=== PATIENT | female | born 1950 | race Caucasian/White ===

== ENCOUNTER 2017-12-13 16:14 | Observation (INO) ==
[2017-12-13] MEDS ORDERED: Ondansetron 4 MG/2 ML VIAL IVP PRN (17:01)
[2017-12-13] MEDS ORDERED: *HR* Promethazine 25 MG/ML VIAL IVP PRN (17:01)
[2017-12-13] MEDS ORDERED: *HR* OxyCODONE Immed Rel 5 MG TABLET PO PRN (17:01)
[2017-12-13] MEDS ORDERED: Ketorolac 15 MG/ML VIAL IVP PRN (17:01)
[2017-12-13] MEDS ORDERED: Naloxone 0.4 MG/ML INJ IVP PRN (17:01)
[2017-12-13] MEDS ORDERED: Nitroglycerin 0.4 MG TAB.SUBL SL PRN (17:04)
[2017-12-13] MEDS ORDERED: Dextrose Gel 15 GM/37.5 ML TUBE PO PRN ×2 (17:07)
[2017-12-13] MEDS ORDERED: D5% in Water 1,000 ML IVC PRN (17:07)
[2017-12-13] MEDS ORDERED: *HR* Dextrose 50 % in Water (Syg) 50 ML SYRINGE IVP PRN (17:07)
[2017-12-13] MEDS: Insulin LISPRO 300 UNITS/3 ML VIAL SQ SCH (17:27)
[2017-12-13] MEDS: 0.9 % Sodium Chloride 1,000 ML IVC SCH (17:32)
--- NOTE | 2017-12-13 17:55 | Urology History & Physical ---
Date of Encounter: 12/13/17 Time of Encounter: 17:52 Assessment and Plan (1) Ureteral stone with hydronephrosis Current Visit: Yes Status: Acute I reviewed the patient's CT scan which reveals a 5 mm distal ureteral stone with significant hydronephrosis. Lower pole stone is likely not clinically significant at this time. Patient's pain has been severe and she does not feel she can continue outpatient management and trial of passage. She's been admitted to the urology service for pain control and likely surgical intervention. Stone extraction is the appropriate surgical management. The procedure was discussed and the patient consented without further questions/ concerns. Risks including injury to her urinary tract, perforation, stricture, reaction to contrast, stent discomfort all discussed. This will be planned for December 14. We'll continue to strain urine while she is in the hospital and cancel the procedure if she is able to pass a stone History of Present Illness Chief complaint: right flank pain HPI: Ms. Finnegan is a 67 year old female admitted from the urology office secondary to severe right flank pain. Recent CT scan showed a 5 m distal right ureteral stone. No history of stones. No fever. Positive nausea. Patient states she is felt "miserable" Right obstructive uropathy related to a distal right ureteric stone. Larger stone seen in the right lower pole calyx measuring 1.2 cm. Past Med Surg Social Fam HX - Past Medical History Medical history: COPD, coronary artery disease, diabetes, GERD, hypertension, myocardial infarction Psychiatric history: no psych history - Past Surgical History Surgical History: appendectomy, cholecystectomy, herniorrhaphy - Social History Smoking Status: Current some day smoker Packs per day: 1 pack a week Smokeless Tobacco Status: No Alcohol use: none Drug use: none - Family History Mother Living Status: Cause of : cancer Father Living Status: Cause of : prostate cancer Medications and Allergies Albuterol Neb [Proventil Neb] 2.5 mg IH Q4HR 10/02/16 [History] Albuterol Sulfate [Proair Hfa] 2 puff IH Q4H PRN 10/02/16 [History] Aspirin [Lo-Dose Aspirin EC] 81 mg PO DAILY 10/02/16 [History] Atorvastatin Calcium [Lipitor] 20 mg PO DAILY 10/02/16 [History] Beclomethasone Diprop 40mcg [Qvar 40 mcg] 1 puff IH BID 10/02/16 [History] Budesonide/Formoterol 160/4.5 [Symbicort 160/4.5] 2 puff IH BID 10/02/16 [ History] Cyanocobalamin (Vitamin B-12) [Vitamin B12] 1,000 mcg PO DAILY 10/02/16 [History ] Ferrous Sulfate 325 mg PO BID 10/02/16 [History] Furosemide [Lasix] 40 mg PO DAILY 10/02/16 [History] Insulin DETEMIR [Levemir Flextouch] 7 unit SQ DAILY 10/02/16 [History] Loratadine [Allergy Relief] 10 mg PO DAILY 10/02/16 [History] Metoprolol Succinate 25 mg PO DAILY 10/02/16 [History] Mv W-Ca/Iron/FA/Lutein/Hrb#179 [Sung Multivit For Women Caplet] 1 each PO DAILY 10/02/16 [History] Potassium Chloride [K-Tab ER] 40 meq PO BID 10/02/16 [History] Sennosides [Senna] 8.6 mg PO HS 10/02/16 [History] ALPRAZolam [Xanax 1 MG Tablet] 1 mg PO TID 12/10/17 [History] Ascorbate Calcium [Vitamin C] 500 mg PO DAILY 12/10/17 [History] Cyclobenzaprine HCl 10 mg PO TID PRN 12/10/17 [History] Empagliflozin [Jardiance] 10 mg PO DAILY 12/10/17 [History] FLUoxetine HCl [Fluoxetine HCl] 40 mg PO DAILY 12/10/17 [History] HYDROcodone/Acet 5/325 mg [[place] 5-325 mg] 1 tab PO Q6H PRN #15 tab 12/10/17 [Rx ] Meloxicam [Mobic] 7.5 mg PO DAILY 12/10/17 [History] Nitroglycerin [Nitrostat] 0.4 mg SL AD PRN 12/10/17 [History] Ondansetron ODT [Zofran ODT] 4 mg SL Q6HR #10 tab.rapdis 12/10/17 [Rx] 3 Allergy/AdvReac Type Severity Reaction Status Date / Time No Known Allergies Allergy Verified 10/02/16 18:06 Review of Systems - Constitutional fatigue, no chills, no fever(s) - EENT Nose, mouth and throat: no dizziness - Cardiovascular no chest pain - Respiratory dyspnea, no cough - Gastrointestinal abdominal pain, nausea - Genitourinary Genitourinary: flank pain - Musculoskeletal back pain - Integumentary no erythema - Neurological no confusion - Psychiatric no anxiety - Hematologic/Lymphatic no easy bleeding - Allergic/Immunologic no throat swelling Exam Initial Vital Signs Temp Pulse Resp BP Pulse Ox 97.9 F 92 16 178/82 95 12/13/17 16:58 12/13/17 16:58 12/13/17 16:58 12/13/17 16:58 12/13/17 16:58 - General physical appearance Present: well developed, no distress - Eyes Present: PERRL, conjunctiva is clear - ENT Present: normal nares - Neck Present: no masses, no lymphadenopathy - Respiratory Present: normal respiratory effort - Cardiovascular Cardiovascular exam IM: RRR - Abdomen Abdomen: Present: soft, suprapubic tenderness - Integumentary Present: no rash, no growths - Neurologic Present: normal coordination. Absent: disoriented, confused - Musculoskeletal Present: normal gait - Additional Findings Right CVA tenderness Urology Results - Labs All other labs normal.
[2017-12-13 18:01] LABS: Calcium 8.9 mg/dL (8.6-10.3); Potassium 4.4 mEq/L (3.5-5.1)
[2017-12-13 18:06] LABS: Basophils # 0.1 K/mcL (0.0-0.2); Basophils % 0.6 %; Eosinophils # 0.3 K/mcL (0.0-0.6); Hematocrit 37.7 % (35.3-44.9); Hemoglobin 11.9 g/dL (11.5-15.4); Immature Granulocytes % 0.3 % (0-4); Lymphocytes # 1.7 K/mcL (0.6-4.6); Lymphocytes % 18.6 %; Mean Corpuscular HGB Conc 31.6 g/dL (31.6-35.5); Mean Corpuscular Hemoglobin 26.9 pg (28.0-33.3); Mean Corpuscular Volume 85.3 fL (83.0-100.0); Monocytes # 0.7 K/mcL (0.0-1.3); Neutrophils # 6.3 K/mcL (1.6-8.9); Platelet Count 226 K/mcL (140-400); Red Blood Count 4.42 M/mcL (3.82-4.97); Red Cell Distribution Width 14.2 % (11.5-14.5); Segmented Neutrophils % 69.5 %
[2017-12-13] MEDS: *HR* HYDROcodone/Acet 5/325 mg TABLET PO SCH (20:20)
[2017-12-13] MEDS ORDERED: Sennosides 8.6 MG TABLET PO SCH (21:00)
[2017-12-13] MEDS: ALPRAZolam 1 MG TABLET PO SCH (21:10)
[2017-12-13] MEDS: Beclomethasone 40mcg MDI IH SCH (21:11)
[2017-12-13] MEDS: Budesonide/Formoterol 160/4.5 MDI IH SCH (21:12)
[2017-12-13] MEDS: Albuterol 2.5 MG/3 ML NEBULIZER IH SCH ×2 (21:12→23:05)
[2017-12-14] MEDS: Insulin LISPRO 300 UNITS/3 ML VIAL SQ SCH ×3 (00:11→12:09)
[2017-12-14] MEDS: *HR* HYDROcodone/Acet 5/325 mg TABLET PO SCH ×4 (00:20→12:09)
[2017-12-14] MEDS: 0.9 % Sodium Chloride 1,000 ML IVC SCH (03:32)
[2017-12-14] MEDS: Albuterol 2.5 MG/3 ML NEBULIZER IH SCH ×4 (04:32→15:15)
--- NOTE | 2017-12-14 07:00 | Urology Progress Note ---
Date of Encounter: 12/14/17 Time of Encounter: 06:59 - Assessment and Plan (1) Ureteral stone with hydronephrosis Current Visit: Yes Status: Acute Assessment and plan: plan to proceed with stone extraction today. discussed with patient that Dr Wright may be able to perform the case sooner. she was in agreement. all questions answered. Progress Note Subjective: still having pain Narrative: pt did not pass stone overnight. Objective Initial Vital Signs Temp Pulse Resp BP Pulse Ox 97.9 F 92 16 178/82 95 12/13/17 16:58 12/13/17 16:58 12/13/17 16:58 12/13/17 16:58 12/13/17 16:58 - General physical appearance Present: no distress, moderate pain - Labs 12/13/17 17:20 12/13/17 17:20 Diabetes panel 12/13/17 Range/Units 17:20 Sodium 142 (136-145) mEq/L Potassium 4.4 (3.5-5.1) mEq/L Chloride 108 H (98-107) mEq/L Carbon Dioxide 29 (23-29) mEq/L BUN 20 (8-23) mg/dL Creatinine 1.17 (0.60-1.20) mg/dL Glucose 189 H (70-105) mg/dL Calcium 8.9 (8.6-10.3) mg/dL Calcium panel 12/13/17 Range/Units 17:20 Calcium 8.9 (8.6-10.3) mg/dL Pituitary panel 12/13/17 Range/Units 17:20 Sodium 142 (136-145) mEq/L Potassium 4.4 (3.5-5.1) mEq/L Chloride 108 H (98-107) mEq/L Carbon Dioxide 29 (23-29) mEq/L BUN 20 (8-23) mg/dL Creatinine 1.17 (0.60-1.20) mg/dL Glucose 189 H (70-105) mg/dL Calcium 8.9 (8.6-10.3) mg/dL Adrenal panel 12/13/17 Range/Units 17:20 Sodium 142 (136-145) mEq/L Potassium 4.4 (3.5-5.1) mEq/L Chloride 108 H (98-107) mEq/L Carbon Dioxide 29 (23-29) mEq/L BUN 20 (8-23) mg/dL Creatinine 1.17 (0.60-1.20) mg/dL Glucose 189 H (70-105) mg/dL Calcium 8.9 (8.6-10.3) mg/dL Consult Discharge Plan - Plan Referrals: Radha Chinchilla, ALEJANDRO [Primary Care Provider] -
[2017-12-14] MEDS: Budesonide/Formoterol 160/4.5 MDI IH SCH (07:58)
[2017-12-14] MEDS: Beclomethasone 40mcg MDI IH SCH (07:58)
[2017-12-14] MEDS: ALPRAZolam 1 MG TABLET PO SCH (08:29)
[2017-12-14] MEDS ORDERED: Aspirin Enteric Coated 81 MG Tablet PO SCH (09:00)
[2017-12-14] MEDS ORDERED: Loratadine 10 MG TABLET PO SCH (09:00)
[2017-12-14] MEDS ORDERED: FLUoxetine 20 MG CAPSULE PO SCH (09:00)
[2017-12-14] MEDS ORDERED: cefTRIAXone 1,000 MG in Water for inj. (sterile) 20 ML 10 ML IVP SCH (09:00)
[2017-12-14] MEDS ORDERED: Furosemide 40 MG TABLET PO SCH (09:00)
[2017-12-14] MEDS ORDERED: (Empagliflozin [Jardiance] 10 MG) PO SCH (09:00)
[2017-12-14] MEDS ORDERED: Metoprolol XL (24 HR) Succ 25 MG TAB.ER.24H PO SCH (09:00)
[2017-12-14] MEDS ORDERED: Isovue-300 50 ML VIAL IVP ONE (10:24)
--- NOTE | 2017-12-14 12:40 | Event Note ---
Date of Encounter: 12/14/17 Time of Encounter: 12:39 patient seen. to or today for stone extraction
--- NOTE | 2017-12-14 12:44 | Anesthesia Evaluation PreOp ---
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 HX Other Medical History: Diabetes Type II, GERD Anesthesia History: No Prior Anesthetic Complications, Past Anesthesia (appy, camila, hernia) Alcohol Use: none Drug use: none Medications and Allergies Albuterol Neb [Proventil Neb] 2.5 mg IH Q4HR 10/02/16 [History] Albuterol Sulfate [Proair Hfa] 2 puff IH Q4H PRN 10/02/16 [History] Aspirin [Lo-Dose Aspirin EC] 81 mg PO DAILY 10/02/16 [History] Beclomethasone Diprop 40mcg [Qvar 40 mcg] 1 puff IH BID 10/02/16 [History] Budesonide/Formoterol 160/4.5 [Symbicort 160/4.5] 2 puff IH BID 10/02/16 [ History] Furosemide [Lasix] 40 mg PO DAILY 10/02/16 [History] Insulin DETEMIR [Levemir Flextouch] 7 unit SQ DAILY 10/02/16 [History] Loratadine [Allergy Relief] 10 mg PO DAILY 10/02/16 [History] Metoprolol Succinate 25 mg PO DAILY 10/02/16 [History] Mv W-Ca/Iron/FA/Lutein/Hrb#179 [Sung Multivit For Women Caplet] 1 each PO DAILY 10/02/16 [History] Potassium Chloride [K-Tab ER] 40 meq PO BID 10/02/16 [History] Sennosides [Senna] 8.6 mg PO HS 10/02/16 [History] ALPRAZolam [Xanax 1 MG Tablet] 1 mg PO TID 12/10/17 [History] Ascorbate Calcium [Vitamin C] 500 mg PO DAILY 12/10/17 [History] Empagliflozin [Jardiance] 10 mg PO DAILY 12/10/17 [History] HYDROcodone/Acet 5/325 mg [[place] 5-325 mg] 1 tab PO Q6H PRN #15 tab 12/10/17 [Rx ] Meloxicam [Mobic] 7.5 mg PO DAILY 12/10/17 [History] Nitroglycerin [Nitrostat] 0.4 mg SL AD PRN 12/10/17 [History] Ondansetron ODT [Zofran ODT] 4 mg SL Q6HR #10 tab.rapdis 12/10/17 [Rx] OxyCODONE/APAP 5/325 [Percocet 5/325 MG] 1 - 2 tab PO QID 12/14/17 [History] 3 Allergy/AdvReac Type Severity Reaction Status Date / Time No Known Allergies Allergy Verified 10/02/16 18:06 - Meds/Allergy Pre-op Review Medications Reviewed: Yes Allergies Reviewed: Yes Beta Blockers on Current Med List: Yes If Beta Blockers taken, Date/Time (Last Dose taken): today 812 Anesthesia Results - Labs 12/13/17 17:20 12/13/17 17:20 Anesthesia Exam Selected Entries 12/14/17 10:31 Temperature 97.6 F Pulse Rate 77 Respiratory Rate 15 Blood Pressure 136/82 O2 Sat by Pulse Oximetry 90 Weight: 73kg - HEENT Pupil (Motor): EOMI Mallampati: II Teeth: Missing (lower), Edentulous (upper) Oral Opening: Greater than 3 - 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
[2017-12-14] MEDS ORDERED: Lidocaine -MPF 2% 2 ML VIAL ONE (13:28)
[2017-12-14] MEDS ORDERED: *HR* FentaNYL (PF) 100 MCG/2 ML VIAL ONE (13:28)
[2017-12-14] MEDS ORDERED: Ondansetron 4 MG/2 ML VIAL ONE (13:28)
[2017-12-14] MEDS ORDERED: *HR* Propofol 200 MG/20 ML VIAL IVP ONE (13:28)
[2017-12-14] MEDS ORDERED: Ondansetron 4 MG/2 ML VIAL IVP ONE ×2 (13:49→16:19)
[2017-12-14] MEDS ORDERED: *HR* OxyCODONE/APAP 5/325 TABLET PO PRN ×2 (13:49→16:19)
[2017-12-14] MEDS ORDERED: Dexamethasone 4 MG/ML VIAL ONE (14:02)
--- NOTE | 2017-12-14 14:09 | Operative Note ---
Date of procedure: 12/14/17 Pre-op diagnosis: right distal ureteral stone Post-op diagnosis: other (no stone found) Procedure: Right ureteroscopy, right 4.8 x 26 cm ureteral stent placement Anesthesia: GETA Surgeon: Salty Wright Was there an auction assistant present: No Estimated blood loss (cc): 0 Specimen: none Condition: stable Disposition: PACU Procedure in Detail: Patient was prepped and draped in normal sterile fashion. Timeout procedure performed. I then inserted the cystoscope into the patient's bladder. There is a marked amount of debris within the patient's bladder. This was drained. I then replaced the cystoscope into the patient's bladder. The right ureteral orifice appeared inflamed and red. I placed a sensor wire through this into the right kidney using fluoroscopy. At this point I was then able to place the semirigid ureteroscope into the right distal ureter. The entire right distal ureter for about 10-15 cm was red and inflamed. I then visualized the entire right ureter with no further stones seen. I then placed a 4.8 x 26 cm stent with good curl seen in the right kidney and in the bladder. The bladder was drained and the procedure was ended. A string was left for easy removal in 2-3 days.
[2017-12-14 15:17] VITALS: BP 149/71
[2017-12-14] MEDS ORDERED: Ketorolac 15 MG/ML VIAL IVP PRN (16:19)
[2017-12-14] MEDS ORDERED: Nitroglycerin 0.4 MG TAB.SUBL SL PRN (16:19)
[2017-12-14] MEDS ORDERED: Dextrose Gel 15 GM/37.5 ML TUBE PO PRN ×2 (16:19)
[2017-12-14] MEDS ORDERED: Ondansetron 4 MG/2 ML VIAL IVP PRN (16:19)
[2017-12-14] MEDS ORDERED: D5% in Water 1,000 ML IVC PRN (16:19)
[2017-12-14] MEDS ORDERED: Naloxone 0.4 MG/ML INJ IVP PRN (16:19)
[2017-12-14] MEDS ORDERED: *HR* OxyCODONE Immed Rel 5 MG TABLET PO PRN (16:19)
[2017-12-14] MEDS ORDERED: *HR* Promethazine 25 MG/ML VIAL IVP PRN (16:19)
[2017-12-14] MEDS ORDERED: 0.9 % Sodium Chloride 1,000 ML IVC SCH (16:19)
[2017-12-14] MEDS ORDERED: *HR* Dextrose 50 % in Water (Syg) 50 ML SYRINGE IVP PRN (16:19)
--- NOTE | 2017-12-14 17:13 | Discharge Summary ---
Date of Encounter: 12/14/17 Time of Encounter: 17:10 - Discharge Diagnosis (1) Ureteral stone with hydronephrosis Priority: Primary Status: Resolved - Discharge Medications Prescriptions: OxyCODONE/APAP 5/325 [Percocet 5/325 MG] 1 - 2 tab PO QID PRN 7 Days #20 tablet PRN Reason: Pain Home Medications: Albuterol Neb [Proventil Neb] 2.5 mg IH Q4HR 10/02/16 [History] Albuterol Sulfate [Proair Hfa] 2 puff IH Q4H PRN 10/02/16 [History] Aspirin [Lo-Dose Aspirin EC] 81 mg PO DAILY 10/02/16 [History] Beclomethasone Diprop 40mcg [QVAR 40 mcg] 1 puff IH BID 10/02/16 [History] Budesonide/Formoterol 160/4.5 [Symbicort 160/4.5] 2 puff IH BID 10/02/16 [ History] Furosemide [Lasix] 40 mg PO DAILY 10/02/16 [History] Insulin DETEMIR [Levemir Flextouch] 7 unit SQ DAILY 10/02/16 [History] Loratadine [Allergy Relief] 10 mg PO DAILY 10/02/16 [History] Metoprolol Succinate 25 mg PO DAILY 10/02/16 [History] Mv W-Ca/Iron/FA/Lutein/Hrb#179 [Sung Multivit For Women Caplet] 1 each PO DAILY 10/02/16 [History] Potassium Chloride [K-Tab ER] 40 meq PO BID 10/02/16 [History] Sennosides [Senna] 8.6 mg PO HS 10/02/16 [History] ALPRAZolam [Xanax 1 MG Tablet] 1 mg PO TID 12/10/17 [History] Empagliflozin [Jardiance] 10 mg PO DAILY 12/10/17 [History] Meloxicam [Mobic] 7.5 mg PO DAILY 12/10/17 [History] Nitroglycerin [Nitrostat] 0.4 mg SL AD PRN 12/10/17 [History] FLUoxetine HCl [Prozac] 40 mg PO DAILY capsule 12/14/17 [Rx] OxyCODONE/APAP 5/325 [Percocet 5/325 MG] 1 - 2 tab PO QID PRN 7 Days #20 tablet 12/14/17 [Rx] Allergies/Adverse Reactions: 3 Allergy/AdvReac Type Severity Reaction Status Date / Time No Known Allergies Allergy Verified 10/02/16 18:06 Labs on day of discharge: Labs from last 24 hours 12/14/17 12/14/17 12/13/17 05:46 00:07 17:22 WBC RBC Hgb Hct MCV MCH MCHC RDW Plt Count MPV Immature Gran % Seg Neutrophils % Lymphocytes % Monocytes % Eosinophils % Basophils % Neutrophils # Lymphocytes # Monocytes # Eosinophils # Basophils # Sodium Potassium Chloride Carbon Dioxide BUN Creatinine Est GFR ( Amer) Est GFR (Non-Af Amer) BUN/Creatinine Ratio Glucose POC Glucose 153 H 254 H 187 H Calculated Osmolality Calcium 12/13/17 12/13/17 17:20 17:20 WBC 9.0 RBC 4.42 Hgb 11.9 Hct 37.7 MCV 85.3 MCH 26.9 L MCHC 31.6 RDW 14.2 Plt Count 226 MPV 12.0 Immature Gran % 0.3 Seg Neutrophils % 69.5 Lymphocytes % 18.6 Monocytes % 8.0 Eosinophils % 3.0 Basophils % 0.6 Neutrophils # 6.3 Lymphocytes # 1.7 Monocytes # 0.7 Eosinophils # 0.3 Basophils # 0.1 Sodium 142 Potassium 4.4 Chloride 108 H Carbon Dioxide 29 BUN 20 Creatinine 1.17 Est GFR ( Amer) 56 L Est GFR (Non-Af Amer) 46 L BUN/Creatinine Ratio 17 Glucose 189 H POC Glucose Calculated Osmolality 302 H Calcium 8.9 - Impressions ITS Impressions Fluoroscopy 12/14/17 13:55 IMPRESSION: Intraprocedural fluoroscopic spot images as above. See separate procedure report for more information. D/ / Robert Kramer MD / Robert Kramer MD Interpreting Provider: Robert Kramer MD X-Ray 12/14/17 13:55 IMPRESSION: Intraprocedural fluoroscopic spot images as above. See separate procedure report for more information. D/ / Robert Kramer MD / Robert Kramer MD Interpreting Provider: Robert Kramer MD Date of admission: 12/13/17 16:21 Primary care physician: Radha Chinchilla CNP Discharging clinician: Oracio Mckeon Anticipated date of discharge: 12/14/17 - Patient Status Disposition: Home, Self-Care Condition: Good Functional capacity at discharge: independent ambulation Overall status at discharge: patient is progressing back to baseline - Discharge Instructions Follow Up With: Radha Chinchilla CNP [Primary Care Provider] - Salty Wright MD [Partnered Physician] - (2-4 weeks. see instructions regarding stent) Additional Instructions: expect stent discomfort including urgency, frequency, burning with urination and some flank pain ok to remove stent at home in 3 days by pulling on the string. if unable to remove stent at home, come the office on monday. expect some increase in pain for 12 hurs after stent is removed call if fever over 101 - Diet and Activity Activity: increase activity as tolerated Diet: advance to your usual diet - Hospital Course Hospital course: Ms. Finnegan is a 67 year old female s/p ureteroscopy. doing well. no complications. plan to discharge tonight. - Time Spent with Patient Total time spent providing and/or coordinating discharge services: Less than 30 minutes Exam Initial Vital Signs Temp Pulse Resp BP Pulse Ox 97.9 F 92 16 178/82 95 12/13/17 16:58 12/13/17 16:58 12/13/17 16:58 12/13/17 16:58 12/13/17 16:58 - General physical appearance Present: well developed, no distress
--- NOTE | 2017-12-14 17:21 | Electrocardiograph Report ---
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
[2017-12-14] MEDS ORDERED: Insulin LISPRO 300 UNITS/3 ML VIAL SQ SCH ×2 (18:00→21:00)
[2017-12-14] MEDS ORDERED: *HR* HYDROcodone/Acet 5/325 mg TABLET PO SCH (20:00)
[2017-12-14] MEDS ORDERED: Albuterol 2.5 MG/3 ML NEBULIZER IH SCH (20:00)
[2017-12-14] MEDS ORDERED: ALPRAZolam 1 MG TABLET PO SCH (21:00)
[2017-12-14] MEDS ORDERED: Sennosides 8.6 MG TABLET PO SCH (21:00)
[2017-12-14] MEDS ORDERED: Beclomethasone 40mcg MDI IH SCH (22:00)
[2017-12-14] MEDS ORDERED: Budesonide/Formoterol 160/4.5 MDI IH SCH (22:00)
[2017-12-15] MEDS ORDERED: Insulin LISPRO 300 UNITS/3 ML VIAL SQ SCH (07:30)
[2017-12-15] MEDS ORDERED: (Empagliflozin [Jardiance] 10 MG) PO SCH (09:00)
[2017-12-15] MEDS ORDERED: FLUoxetine 20 MG CAPSULE PO SCH (09:00)
[2017-12-15] MEDS ORDERED: Aspirin Enteric Coated 81 MG Tablet PO SCH (09:00)
[2017-12-15] MEDS ORDERED: Furosemide 40 MG TABLET PO SCH (09:00)
[2017-12-15] MEDS ORDERED: Loratadine 10 MG TABLET PO SCH (09:00)
[2017-12-15] MEDS ORDERED: cefTRIAXone 1,000 MG in Water for inj. (sterile) 20 ML 10 ML IVP SCH (09:00)
[2017-12-15] MEDS ORDERED: Metoprolol XL (24 HR) Succ 25 MG TAB.ER.24H PO SCH (09:00)
== END 2017-12-14 17:40 | disposition home or self-care (01) ==
LOC: 3BNU
PROVIDERS: ADMIT Urology; ATTEND Urology

== ENCOUNTER 2017-12-21 18:46 | Inpatient (IN) ==
[2017-12-21] MEDS ORDERED: Acetaminophen 325 MG TABLET PO ONE (19:23)
--- NOTE | 2017-12-21 19:26 | Emergency Department Note ---
Disposition Clinical Impression: Pneumonia involving left lung, Urinary tract infection, SOB (shortness of breath), COPD exacerbation Disposition: Admitted As Inpatient Condition: Good Referrals: Radha Chinchilla CNP [Primary Care Provider] - Forms: ED Satisfaction Letter Time of Disposition: 20:38 Fever HPI - General Chief Complaint: ED Fever Stated Complaint: fever Time Seen by Provider: 12/21/17 19:22 Source: patient Mode of arrival: ambulatory Nursing Notes Reviewed: Yes Vital Signs Reviewed: Yes - History of Present Illness HPI Narrative: 67-year-old female presents emergency room for fever. Symptom onset was yesterday. Patient admits to a slight cough with little sputum production. She is also complaining of low back pain. She denies dysuria or hematuria. No abdominal pain. Vomiting 3 yesterday. No diarrhea. She states she had lithotripsy done last week on kidney stones. No other complaints at this time. She has known COPD. Does not wear home oxygen. - Related Data Home Medications Medication Instructions Recorded Confirmed Albuterol Neb [Proventil Neb] 2.5 mg IH Q4HR 10/02/16 12/14/17 Albuterol Sulfate [Proair Hfa] 2 puff IH Q4H PRN 10/02/16 12/14/17 Aspirin [Lo-Dose Aspirin EC] 81 mg PO DAILY 10/02/16 12/14/17 Beclomethasone Diprop 40mcg [QVAR 1 puff IH BID 10/02/16 12/14/17 40 mcg] Budesonide/Formoterol 160/4.5 2 puff IH BID 10/02/16 12/14/17 [Symbicort 160/4.5] Furosemide [Lasix] 40 mg PO DAILY 10/02/16 12/14/17 Insulin DETEMIR [Levemir Flextouch] 7 unit SQ DAILY 10/02/16 12/14/17 Loratadine [Allergy Relief] 10 mg PO DAILY 10/02/16 12/14/17 Metoprolol Succinate 25 mg PO DAILY 10/02/16 12/14/17 Mv W-Ca/Iron/FA/Lutein/Hrb#179 1 each PO DAILY 10/02/16 12/14/17 [Sung Multivit For Women Caplet] Potassium Chloride [K-Tab ER] 40 meq PO BID 10/02/16 12/14/17 Sennosides [Senna] 8.6 mg PO HS 10/02/16 12/14/17 ALPRAZolam [Xanax 1 MG Tablet] 1 mg PO TID 12/10/17 12/14/17 Empagliflozin [Jardiance] 10 mg PO DAILY 12/10/17 12/14/17 Meloxicam [Mobic] 7.5 mg PO DAILY 12/10/17 12/14/17 Nitroglycerin [Nitrostat] 0.4 mg SL AD PRN 12/10/17 12/14/17 Previous Rx's Medication Instructions Recorded FLUoxetine HCl [Prozac] 40 mg PO DAILY capsule 12/14/17 OxyCODONE/APAP 5/325 [Percocet 1 - 2 tab PO QID PRN 7 Days #20 12/14/17 5/325 MG] tablet Allergies Allergy/AdvReac Type Severity Reaction Status Date / Time No Known Allergies Allergy Verified 12/21/17 18:51 All systems ED: reviewed and negative except as stated. Constitutional: Reports: fever Eyes: Reports: as per HPI ENT ED: Reports: as per HPI Cardiovascular: Denies: chest pain, palpitations Respiratory: Reports: cough. Denies: dyspnea, wheezes Gastrointestinal: Reports: vomiting. Denies: diarrhea Genitourinary: Reports: as per HPI Musculoskeletal: Reports: back pain Integumentary: Reports: as per HPI Neurological: Reports: as per HPI Psychiatric: Reports: as per HPI Endocrine: Reports: as per HPI Hematological/Lymphatic: Reports: as per HPI Fever PMH - Past Medical History Medical history: Reports: COPD, coronary artery disease, diabetes, GERD, hypertension, myocardial infarction Surgical history: Reports: appendectomy, cholecystectomy, herniorrhaphy Psychiatric history: Reports: no psych history - Social History Smoking Status: Current every day smoker Alcohol use: Reports: none Drug use: Reports: none Physical Exam - General General appearance: alert - Head Head exam: atraumatic, normocephalic - Eye Eye exam: Present: normal appearance - ENT ENT exam: normal exam - Neck Neck exam: Present: normal inspection - Chest Chest inspection: Present: normal inspection, symmetric chest wall rise - Respiratory Respiratory exam: Present: normal lung sounds bilaterally. Absent: respiratory distress, wheezes - Cardiovascular Cardiovascular exam: Present: normal rhythm, tachycardia - Abdominal Exam Abdominal exam: Present: soft, Non-Tender, normal bowel sounds - Extremities Exam Extremities exam: Present: normal inspection - Back Exam Back exam: Present: tenderness (Lumbar tenderness) - Neurological Exam Neurological exam: Present: alert, oriented X3 - Psychiatric Psychiatric exam: Present: normal affect, normal mood - Skin Skin exam: Present: warm, dry, intact Course Vital Signs Temperature 101.5 F H 12/21/17 18:48 Pulse Rate 114 12/21/17 18:48 Respiratory Rate 20 12/21/17 18:48 Blood Pressure 145/76 12/21/17 18:48 O2 Sat by Pulse Oximetry 93 12/21/17 18:48 Temperature 101.5 F H 12/21/17 18:48 Pulse Rate 114 12/21/17 18:48 Respiratory Rate 16 12/21/17 20:30 Blood Pressure 145/76 12/21/17 18:48 O2 Sat by Pulse Oximetry 91 12/21/17 20:30 Oxygen Delivery Oxygen Delivery Room Air Fever - MDM Narrative Medical decision making narrative: Patient has evidence of left sided pneumonia as well as any evidence of urinary tract infection. I have ordered IV Levaquin. Patient saturations are running in the high 80s. I feel she needs to be admitted for this due to her hypoxia. Her flu swabs are negative. We will obtain blood cultures as well. - Medical Records Medical records reviewed: Yes I reviewed the patient's medical records. - Lab Data Lab results reviewed: Yes I reviewed the patient's lab results. Result diagrams: 12/21/17 19:37 12/21/17 19:37 Lab Results 12/21/17 12/21/17 12/21/17 Range/Units 19:15 19:37 19:37 WBC 9.1 (4.3-11.1) K/mcL RBC 4.28 (3.82-4.97) M/mcL Hgb 11.6 (11.5-15.4) g/dL Hct 35.7 (35.3-44.9) % MCV 83.4 (83.0-100.0) fL MCH 27.1 L (28.0-33.3) pg MCHC 32.5 (31.6-35.5) g/dL RDW 14.2 (11.5-14.5) % Plt Count 197 (140-400) K/mcL MPV 11.8 (9.4-12.4) fL Immature Gran % 0.8 (0-4) % Seg Neutrophils % 89.5 % Lymphocytes % 5.0 % Monocytes % 4.3 % Eosinophils % 0.0 % Basophils % 0.4 % Neutrophils # 8.1 (1.6-8.9) K/mcL Lymphocytes # 0.5 L (0.6-4.6) K/mcL Monocytes # 0.4 (0.0-1.3) K/mcL Eosinophils # 0.0 (0.0-0.6) K/mcL Basophils # 0.0 (0.0-0.2) K/mcL Sodium 135 L (136-145) mEq/L Potassium 3.5 (3.5-5.1) mEq/L Chloride 98 (98-107) mEq/L Carbon Dioxide 30 H (23-29) mEq/L BUN 30 H (8-23) mg/dL Creatinine 0.97 (0.60-1.20) mg/dL Est GFR ( Amer) > 60 (> 60) Est GFR (Non-Af Amer) 57 L (> 60) BUN/Creatinine Ratio 31 H (6-26) Glucose 248 H (70-105) mg/dL Calculated Osmolality 294 (280-300) Calcium 8.7 (8.6-10.3) mg/dL Urine Color Yellow (Yellow) Urine Clarity Cloudy A (Clear) Urine pH 6.0 (5.0-8.0) pH Units Ur Specific [place] 1.020 (1.010-1.025) Urine Protein 100 H (Neg-Trace) mg/dL Urine Glucose (UA) Normal (Normal) mg/dL Urine Ketones Negative (Negative) mg/dL Urine Blood Moderate H (Negative) Urine Nitrite Negative (Negative) Urine Bilirubin Negative (Negative) Urine Urobilinogen Normal (Normal) mg/dL Ur Leukocyte Esterase Moderate H (Negative) Urine Microscopic RBC 5-15 H (0-3) per hpf Urine Microscopic WBC TNTC H (0-3) per hpf Ur Squamous Epith Cells Many H (None-Few) per lpf Urine Bacteria Many H (None-Few) per hpf Hyaline Casts None Seen (None-Few) per lpf Ur Culture Indicated? NO. (NO) - Radiology Data Radiology results reviewed: Yes I reviewed the patient's radiology results. - EKG Data EKG attestation: Yes I reviewed and interpreted this EKG. EKG results narrative: Rate 104. Sinus tachycardia. HI interval 204. QRS 81. QTC 376. Some T-wave inversions noted in lead V3 V4 and V5. These are new.
[2017-12-21 19:34] LABS: Bilirubin,Urine Negative (Negative); Blood,Urine Moderate (Negative); Clarity,Urine Cloudy (Clear); Color,Urine Yellow (Yellow); Glucose,Urine (UA) Normal (Normal); Ketones,Urine Negative (Negative); Leukocyte Esterase,Urine Moderate (Negative); Nitrite,Urine Negative (Negative); Protein,Urine 100 mg/dL (Neg-Trace); Urobilinogen,Urine Normal (Normal)
[2017-12-21 19:36] LABS: Bacteria,Urine Many per hpf (None-Few); Hyaline Casts,Urine None Seen per lpf (None-Few); Squamous Epithelial Cell,Urine Many per lpf (None-Few); WBC,Urine TNTC per hpf (0-3)
[2017-12-21 19:45] LABS: Basophils % 0.4 %; Hematocrit 35.7 % (35.3-44.9); Hemoglobin 11.6 g/dL (11.5-15.4); Immature Granulocytes % 0.8 % (0-4); Lymphocytes # 0.5 K/mcL (0.6-4.6); Mean Corpuscular HGB Conc 32.5 g/dL (31.6-35.5); Mean Corpuscular Hemoglobin 27.1 pg (28.0-33.3); Mean Corpuscular Volume 83.4 fL (83.0-100.0); Mean Platelet Volume 11.8 fL (9.4-12.4); Monocytes # 0.4 K/mcL (0.0-1.3); Monocytes % 4.3 %; Neutrophils # 8.1 K/mcL (1.6-8.9); Platelet Count 197 K/mcL (140-400); Red Blood Count 4.28 M/mcL (3.82-4.97); Red Cell Distribution Width 14.2 % (11.5-14.5); Segmented Neutrophils % 89.5 %
[2017-12-21 19:59] LABS: BUN/Creatinine Ratio 31 (6-26); Blood Urea Nitrogen 30 mg/dL (8-23); Calcium 8.7 mg/dL (8.6-10.3); Carbon Dioxide 30 mEq/L (23-29); Chloride 98 mEq/L (98-107); Glucose 248 mg/dL (70-105); Osmolality,Calculated 294 (280-300); Potassium 3.5 mEq/L (3.5-5.1); Sodium 135 mEq/L (136-145); eGFR For African Americans > 60 (> 60); eGFR For Non-African Americans 57 (> 60)
[2017-12-21] MEDS ORDERED: Levofloxacin 750 MG/150 ML 750 MG/150 ML BAG IVPB ONE (20:21)
[2017-12-21] MEDS ORDERED: methylPREDNISolone 125 MG/2 ML VIAL IVP ONE (20:21)
[2017-12-21] MEDS ORDERED: Ipratropium/Albuterol Neb 3 ML IH ONE (20:22)
[2017-12-21] MEDS ORDERED: 0.9 % Sodium Chloride 1,000 ML IVC ONE (20:43)
[2017-12-21] MEDS ORDERED: Naloxone 0.4 MG/ML INJ IVP PRN (21:46)
[2017-12-21] MEDS ORDERED: Ondansetron 4 MG/2 ML VIAL IVP PRN (21:46)
[2017-12-21] MEDS ORDERED: *HR* Promethazine 25 MG/ML VIAL IVP PRN (21:46)
[2017-12-21] MEDS ORDERED: *HR* HYDROcodone/Acet 5/325 mg TABLET PO PRN (21:46)
[2017-12-21] MEDS ORDERED: MOM Conc 10 ML UD.LIQ PO PRN (21:46)
[2017-12-21] MEDS ORDERED: Nitroglycerin 0.4 MG TAB.SUBL SL PRN (21:49)
--- NOTE | 2017-12-21 21:55 | Internal Med History&Physical ---
Date of Encounter: 12/21/17 Time of Encounter: 21:52 Assessment and Plan (1) SIRS (systemic inflammatory response syndrome) Current visit: Yes Status: Acute She does meets SIRS criteria with fever @ 101.5, sinus tachcycardia, and source of inf as UTI + PNA Will admit the pt into Med Surg Start her on IV hydration Empirical abx Levaquin Resp viral panel, Sputum cx, Strep PNA and Legionella ordered (2) Pneumonia involving left lung Current visit: Yes Status: Acute Reviewed CXR showed Left basilar infiltrate started on empirical abx mostly bacterial pneumonia Qualifiers: Qualified Code(s): J18.9 - Pneumonia, unspecified organism (3) COPD exacerbation Current visit: Yes Status: Acute Cont duoneb JJ + PRN will start her on low dose IV steroids (4) Acute cystitis Current visit: Yes Status: Acute UA- looks abnormal continue empiricla abx Levaquin f/u on urine cx Qualifiers: Hematuria presence: without hematuria Qualified Code(s): N30.00 - Acute cystitis without hematuria (5) HTN (hypertension) Current visit: Yes Status: Acute Resumed home meds - Metoprolol Qualifiers: Hypertension type: essential hypertension Qualified Code(s): I10 - Essential (primary) hypertension Internal Medicine - H&P: HPI Chief complaint: Cold and cough Admitted From: Emergency Dept Plans for Post Hospital Care: Home History of present illness: Ms. Finnegan is a 67 year old female with known COPD with no O2 dependent, HTN, HLD, and Nephro lithiasis who recently had lithotripsy presented to emergency room with fever and cough with expectoration since yesterday. She is also complaining of low back pain. She denies dysuria or hematuria. No abdominal pain. Vomiting 3 yesterday. No diarrhea. She states she had lithotripsy done last week on kidney stones. No other complaints at this time. Past Med Surg Social Fam HX - Past Medical History Medical history: COPD, coronary artery disease, diabetes, GERD, hypertension, myocardial infarction Psychiatric history: no psych history - Past Surgical History Surgical History: appendectomy, cholecystectomy, herniorrhaphy - Social History Smoking Status: Current every day smoker Smokeless Tobacco Status: No Alcohol use: none Drug use: none - Family History Mother Living Status: Father Living Status: Internal Medicine - H&P: Meds Albuterol Neb [Proventil Neb] 2.5 mg IH Q4HR 10/02/16 [History] Albuterol Sulfate [Proair Hfa] 2 puff IH Q4H PRN 10/02/16 [History] Aspirin [Lo-Dose Aspirin EC] 81 mg PO DAILY 10/02/16 [History] Beclomethasone Diprop 40mcg [QVAR 40 mcg] 1 puff IH BID 10/02/16 [History] Budesonide/Formoterol 160/4.5 [Symbicort 160/4.5] 2 puff IH BID 10/02/16 [ History] Furosemide [Lasix] 40 mg PO DAILY 10/02/16 [History] Insulin DETEMIR [Levemir Flextouch] 7 unit SQ QPM 10/02/16 [History] Loratadine [Allergy Relief] 10 mg PO DAILY 10/02/16 [History] Metoprolol Succinate 25 mg PO DAILY 10/02/16 [History] Mv W-Ca/Iron/FA/Lutein/Hrb#179 [Sung Multivit For Women Caplet] 1 each PO DAILY 10/02/16 [History] Potassium Chloride [K-Tab ER] 20 meq PO DAILY 10/02/16 [History] Sennosides [Senna] 8.6 mg PO HS 10/02/16 [History] ALPRAZolam [Xanax 1 MG Tablet] 1 mg PO TID 12/10/17 [History] Empagliflozin [Jardiance] 10 mg PO DAILY 12/10/17 [History] Meloxicam [Mobic] 7.5 mg PO DAILY 12/10/17 [History] Nitroglycerin [Nitrostat] 0.4 mg SL Q5M PRN 12/10/17 [History] FLUoxetine HCl [Prozac] 40 mg PO DAILY capsule 12/14/17 [Rx] OxyCODONE/APAP 5/325 [Percocet 5/325 MG] 1 - 2 tab PO QID PRN 7 Days #20 tablet 12/14/17 [Rx] 3 Allergy/AdvReac Type Severity Reaction Status Date / Time No Known Allergies Allergy Verified 12/21/17 18:51 All Systems PM: A 10-system review of systems was performed and is negative for pertinent findings except as documented above in the HPI. Review of systems: All the systems are reviewed everything is benign except the systems and symptoms I mentioned in the history of present illness - Constitutional Vitals: Temp Pulse Resp BP Pulse Ox 99.2 F 108 20 116/70 90 12/21/17 21:19 12/21/17 21:00 12/21/17 21:00 12/21/17 21:00 12/21/17 21:00 General appearance: Present: A&O X 3, answers questions appropriately - Head Head exam: Present: atraumatic, normocephalic - Neck Neck exam general surgery: Present: supple - Respiratory Respiratory exam: Present: decreased breath sounds, wheezes (moderate). Absent : rales, respiratory distress, rhonchi - Cardiovascular Cardiovascular exam: Present: +S1, +S2, tachycardia - GI/Abdominal GI/Abdominal exam: Present: normal bowel sounds, soft. Absent: rebound, rigid, tenderness - Extremities Exam Extremities exam: Absent: calf tenderness, pedal edema, tenderness - Back Exam Back exam: Absent: CVA tenderness (L), CVA tenderness (R) - Neurological Exam Neurological exam: Present: alert, oriented X3 - Psychiatric Psychiatric exam: Present: normal affect, normal mood - Skin Skin exam: Absent: rash Internal Med - H&P Results - Labs CBC & Chem 7: 12/21/17 19:37 12/21/17 19:37
[2017-12-21] MEDS ORDERED: 0.9 % Sodium Chloride 1,000 ML IVC SCH (22:00)
[2017-12-21] MEDS: Acetaminophen 325 MG TABLET PO PRN (22:49)
[2017-12-21] MEDS: MethylPREDNISolone 40 MG/ML VIAL IVP SCH (23:28)
[2017-12-21] MEDS: Nicotine 14 MG PATCH.TD24 TD SCH (23:28)
[2017-12-21] MEDS: Ipratropium/Albuterol Neb 3 ML IH SCH (23:47)
[2017-12-22 00:28] LABS: Adenovirus Not Detected (Not Detect); Bordetella Pertussis Not Detected (Not Detect); Chlamydophila pneumoniae Not Detected (Not Detect); Coronavirus 229E Not Detected (Not Detect); Coronavirus HKU1 Not Detected (Not Detect); Coronavirus NL63 Not Detected (Not Detect); Coronavirus OC43 Not Detected (Not Detect); Human Metapneumovirus Not Detected (Not Detect); Human Rhinovirus/Enterovirus Not Detected (Not Detect); Influenza A Subtype 2009 H1 Not Detected (Not Detect); Influenza A Untypeable Not Detected (Not Detect); Influenza B Not Detected (Not Detect); Mycoplasma pneumoniae Not Detected (Not Detect); Parainfluenza Virus 1 Not Detected (Not Detect); Parainfluenza Virus 2 Not Detected (Not Detect); Parainfluenza Virus 3 Not Detected (Not Detect); Parainfluenza Virus 4 Not Detected (Not Detect); Respiratory Syncytial Virus Not Detected (Not Detect)
[2017-12-22] MEDS: Albuterol 2.5 MG/3 ML NEBULIZER IH SCH ×3 (01:24→07:42)
[2017-12-22] MEDS: Ipratropium/Albuterol Neb 3 ML IH SCH ×5 (03:21→20:58)
[2017-12-22 04:48] LABS: Basophils % 0.3 %; Hematocrit 32.8 % (35.3-44.9); Hemoglobin 10.8 g/dL (11.5-15.4); Immature Granulocytes % 0.6 % (0-4); Lymphocytes # 0.5 K/mcL (0.6-4.6); Lymphocytes % 7.2 %; Mean Corpuscular HGB Conc 32.9 g/dL (31.6-35.5); Mean Corpuscular Hemoglobin 27.6 pg (28.0-33.3); Mean Corpuscular Volume 83.9 fL (83.0-100.0); Mean Platelet Volume 12.3 fL (9.4-12.4); Monocytes # 0.1 K/mcL (0.0-1.3); Monocytes % 1.6 %; Neutrophils # 5.6 K/mcL (1.6-8.9); Platelet Count 184 K/mcL (140-400); Red Blood Count 3.91 M/mcL (3.82-4.97); Red Cell Distribution Width 14.4 % (11.5-14.5); Segmented Neutrophils % 90.3 %
[2017-12-22 05:18] LABS: Chloride 102 mEq/L (98-107); Potassium 3.5 mEq/L (3.5-5.1); Sodium 137 mEq/L (136-145)
[2017-12-22] MEDS: *HR* Enoxaparin 40 MG/0.4 ML SYRINGE SQ SCH (05:24)
[2017-12-22 05:46] LABS: BUN/Creatinine Ratio 34 (6-26); Blood Urea Nitrogen 25 mg/dL (8-23); Carbon Dioxide 24 mEq/L (23-29); Glucose 344 mg/dL (70-105); Osmolality,Calculated 302 (280-300); eGFR For African Americans > 60 (> 60); eGFR For Non-African Americans > 60 (> 60)
[2017-12-22] MEDS: Budesonide/Formoterol 160/4.5 MDI IH SCH ×2 (07:41→20:58)
[2017-12-22] MEDS: FLUoxetine 20 MG CAPSULE PO SCH (08:00)
[2017-12-22] MEDS: Loratadine 10 MG TABLET PO SCH (08:00)
[2017-12-22] MEDS: Aspirin Enteric Coated 81 MG Tablet PO SCH (08:01)
[2017-12-22] MEDS: Nicotine 14 MG PATCH.TD24 TD SCH (08:01)
[2017-12-22] MEDS: Metoprolol XL (24 HR) Succ 25 MG TAB.ER.24H PO SCH (08:01)
[2017-12-22] MEDS ORDERED: Albuterol 2.5 MG/3 ML NEBULIZER IH PRN (08:20)
[2017-12-22] MEDS ORDERED: *HR* Dextrose 50 % in Water (Syg) 50 ML SYRINGE IVP PRN (08:30)
[2017-12-22] MEDS ORDERED: Dextrose Gel 15 GM/37.5 ML TUBE PO PRN ×2 (08:30)
[2017-12-22] MEDS ORDERED: D5% in Water 1,000 ML IVC PRN (08:30)
[2017-12-22] MEDS ORDERED: EMPAGLIFLOZIN 10 MG PO SCH (09:00)
[2017-12-22] MEDS ORDERED: Beclomethasone 40mcg MDI IH SCH (10:00)
--- NOTE | 2017-12-22 10:07 | Electrocardiograph Report ---
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
[2017-12-22] MEDS: MethylPREDNISolone 40 MG/ML VIAL IVP SCH (10:55)
[2017-12-22] MEDS: Insulin LISPRO 300 UNITS/3 ML VIAL SQ SCH ×4 (10:55→22:02)
[2017-12-22] MEDS ORDERED: Insulin LISPRO 300 UNITS/3 ML VIAL SQ SCH ×2 (11:30→21:00)
[2017-12-22] MEDS ORDERED: 0.9 % Sodium Chloride 1,000 ML IVC SCH (12:45)
[2017-12-22] MEDS ORDERED: 0.9 % Sodium Chloride 1,000 ML ONE (12:47)
[2017-12-22] MEDS ORDERED: Insulin LISPRO 300 UNITS/3 ML VIAL SQ ONE (12:48)
--- NOTE | 2017-12-22 13:35 | Internal Med Progress Note ---
Date of Encounter: 12/22/17 Time of Encounter: 13:33 - Assessment and plan (1) Hyperglycemia due to type 2 diabetes mellitus Current Visit: Yes Status: Acute Assessment and plan: Noted to have persistent hyperglycemia, likely secondary to steroid use currently on high dose sliding scale insulin in addition to continuation of basal insulin coverage continue IV fluids awaiting repeat BMP, if BG remains elevated, will start patient on insulin gtt. 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 harvesting supervisor (current) use of insulin; Z79.4 - jail (current) use of insulin (2) Acute cystitis Current Visit: Yes Status: Acute Assessment and plan: continue IV levaquin f/u urine cultures Qualifiers: Hematuria presence: without hematuria Qualified Code(s): N30.00 - Acute cystitis without hematuria (3) COPD exacerbation Current Visit: Yes Status: Acute Assessment and plan: clinically improving currently saturating well on room air will d/c IV steroids, will start PO Prednisone 40mg once a day continue bronchodilator support O2 supplementation as needed (4) HTN (hypertension) Current Visit: Yes Status: Chronic Assessment and plan: BP within acceptable range continue home meds Qualifiers: Hypertension type: essential hypertension Qualified Code(s): I10 - Essential (primary) hypertension (5) Pneumonia involving left lung Current Visit: Yes Status: Acute Assessment and plan: continue IV levaquin will follow up blood cultures Qualifiers: Pneumonia type: due to unspecified organism Lung location: lower lobe of lung Qualified Code(s): J18.1 - Lobar pneumonia, unspecified organism (6) SIRS (systemic inflammatory response syndrome) Current Visit: Yes Status: Resolved - Subjective Interval history: Pt seen and examined at bedside. Resting in bed and reports of significant improvement in her respiratory status. Currently saturating well on room air. Noted to have severe hyperglycemia, pt currently on high dose sliding scale, will obtain STAT BMP and adjust insulin dosing accordingly. started on IV fluids d/c IV steroids and start PO prednisone - Constitutional Vitals: Temp Pulse Resp BP Pulse Ox 97.9 F 87 16 123/63 93 12/22/17 10:34 12/22/17 10:34 12/22/17 11:05 12/22/17 10:34 12/22/17 11:05 General appearance: Present: cooperative, A&O X 3, no acute distress, answers questions appropriately - Head Head exam: Present: atraumatic, normocephalic - Eye Eye exam: Present: conjuntiva pink, sclera anicteric - Respiratory Respiratory exam: Present: CTAB. Absent: respiratory distress, wheezes - Cardiovascular Cardiovascular exam: Present: RRR, +S1, +S2. Absent: diastolic murmur, gallop, rubs, systolic murmur - GI/Abdominal GI/Abdominal exam: Present: normal bowel sounds, soft, no peritoneal signs. Absent: distended, tenderness - Extremities Exam Extremities exam: Present: warm, radial pulses palpable and symmetrical. Absent : calf tenderness, pedal edema - Neurological Exam Neurological exam: Present: alert, oriented X3 - Psychiatric Psychiatric exam: Present: normal affect, normal mood Internal Medicine: Result - Labs CBC & Chem 7: 12/22/17 03:44 12/22/17 03:44 Labs: Short CBC 12/22/17 Range/Units 03:44 WBC 6.2 (4.3-11.1) K/mcL Hgb 10.8 L (11.5-15.4) g/dL Hct 32.8 L (35.3-44.9) % Plt Count 184 (140-400) K/mcL Neutrophils # 5.6 (1.6-8.9) K/mcL BMP 12/22/17 03:44 Sodium 137 Potassium 3.5 Chloride 102 Carbon Dioxide 24 BUN 25 H Creatinine 0.74 Glucose 344 H Calcium 8.0 L Consult Discharge Plan - Plan Referrals: Radha Chinchilla, ALEJANDRO [Primary Care Provider] - 01/03/18 10:45 am (Please follow up as schedule...)
[2017-12-22 13:36] LABS: BUN/Creatinine Ratio 29 (6-26); Blood Urea Nitrogen 26 mg/dL (8-23); Calcium 8.2 mg/dL (8.6-10.3); Carbon Dioxide 26 mEq/L (23-29); Chloride 103 mEq/L (98-107); Glucose 506 mg/dL (70-105); Osmolality,Calculated 311 (280-300); Potassium 3.4 mEq/L (3.5-5.1); Sodium 137 mEq/L (136-145); eGFR For African Americans > 60 (> 60); eGFR For Non-African Americans > 60 (> 60)
[2017-12-22] MEDS ORDERED: Insulin Human Regular 100 UNIT in 0.9 % Sodium Chloride 100 ML IVC SCH (14:00)
[2017-12-22] MEDS: Acetaminophen 325 MG TABLET PO PRN ×2 (14:21→23:40)
[2017-12-22] MEDS: predniSONE 20 MG TABLET PO SCH (17:32)
[2017-12-22] MEDS ORDERED: Insulin DETEMIR 100 UNIT/ML X5UNITS SQ SCH (18:00)
[2017-12-22] MEDS ORDERED: INSULIN DETEMIR 7 UNIT SQ SCH (18:00)
[2017-12-22] MEDS ORDERED: levoFLOXacin 750 MG TABLET PO SCH (21:00)
[2017-12-22] MEDS ORDERED: Sennosides 8.6 MG TABLET PO SCH (21:00)
[2017-12-22] MEDS ORDERED: Levofloxacin 750 MG/150 ML 750 MG/150 ML BAG IVPB SCH (21:00)
[2017-12-23] MEDS: Ipratropium/Albuterol Neb 3 ML IH SCH ×5 (00:25→15:32)
[2017-12-23] MEDS: Insulin LISPRO 300 UNITS/3 ML VIAL SQ SCH ×3 (02:35→13:06)
[2017-12-23] MEDS: ALPRAZolam 1 MG TABLET PO PRN ×2 (05:49→13:06)
[2017-12-23] MEDS: *HR* Enoxaparin 40 MG/0.4 ML SYRINGE SQ SCH (05:49)
[2017-12-23 06:35] LABS: Basophils % 0.2 %; Hematocrit 32.1 % (35.3-44.9); Hemoglobin 10.4 g/dL (11.5-15.4); Immature Granulocytes % 0.8 % (0-4); Lymphocytes # 0.9 K/mcL (0.6-4.6); Lymphocytes % 8.4 %; Mean Corpuscular HGB Conc 32.4 g/dL (31.6-35.5); Mean Corpuscular Hemoglobin 27.2 pg (28.0-33.3); Mean Platelet Volume 12.6 fL (9.4-12.4); Monocytes % 5.2 %; Platelet Count 201 K/mcL (140-400); Red Blood Count 3.82 M/mcL (3.82-4.97); Red Cell Distribution Width 14.3 % (11.5-14.5); Segmented Neutrophils % 85.4 %
[2017-12-23 06:36] LABS: Monocytes # 0.6 K/mcL (0.0-1.3)
[2017-12-23 06:41] LABS: BUN/Creatinine Ratio 41 (6-26); Blood Urea Nitrogen 29 mg/dL (8-23); Calcium 8.4 mg/dL (8.6-10.3); Carbon Dioxide 30 mEq/L (23-29); Chloride 108 mEq/L (98-107); Glucose 146 mg/dL (70-105); Magnesium 2.3 mg/dL (1.6-2.6); Osmolality,Calculated 302 (280-300); Phosphorous 2.5 mg/dL (2.7-4.5); Potassium 3.4 mEq/L (3.5-5.1); Sodium 142 mEq/L (136-145); eGFR For African Americans > 60 (> 60); eGFR For Non-African Americans > 60 (> 60)
[2017-12-23] MEDS: Budesonide/Formoterol 160/4.5 MDI IH SCH (07:55)
[2017-12-23] MEDS: predniSONE 20 MG TABLET PO SCH (08:52)
[2017-12-23] MEDS: Loratadine 10 MG TABLET PO SCH (08:52)
[2017-12-23] MEDS: Metoprolol XL (24 HR) Succ 25 MG TAB.ER.24H PO SCH (08:52)
[2017-12-23] MEDS: FLUoxetine 20 MG CAPSULE PO SCH (08:52)
[2017-12-23] MEDS: Nicotine 14 MG PATCH.TD24 TD SCH (08:52)
[2017-12-23] MEDS: Aspirin Enteric Coated 81 MG Tablet PO SCH (08:52)
[2017-12-23 11:20] VITALS: BP 116/70
--- NOTE | 2017-12-23 14:26 | Discharge Summary ---
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 (2) Acute cystitis Priority: Primary Status: Acute Qualifiers: Hematuria presence: without hematuria Qualified Code(s): N30.00 - Acute cystitis without hematuria (3) COPD exacerbation Priority: Primary Status: Acute (4) HTN (hypertension) Priority: Secondary Status: Chronic Qualifiers: Hypertension type: essential hypertension Qualified Code(s): I10 - Essential (primary) hypertension (5) Pneumonia involving left lung Priority: Primary Status: Acute Qualifiers: Pneumonia type: due to unspecified organism Lung location: lower lobe of lung Qualified Code(s): J18.1 - Lobar pneumonia, unspecified organism (6) SIRS (systemic inflammatory response syndrome) Priority: Secondary Status: Resolved - Discharge Medications Prescriptions: levoFLOXacin [Levaquin] 750 mg PO DAILY@2100 #6 tablet predniSONE [PredniSONE] 40 mg PO DAILY #4 tablet Home Medications: Albuterol Neb [Proventil Neb] 2.5 mg IH Q4HR 10/02/16 [History] Albuterol Sulfate [Proair Hfa] 2 puff IH Q4H PRN 10/02/16 [History] Aspirin [Lo-Dose Aspirin EC] 81 mg PO DAILY 10/02/16 [History] Beclomethasone Diprop 40mcg [QVAR 40 mcg] 1 puff IH BID 10/02/16 [History] Budesonide/Formoterol 160/4.5 [Symbicort 160/4.5] 2 puff IH BID 10/02/16 [ History] Furosemide [Lasix] 40 mg PO DAILY 10/02/16 [History] Insulin DETEMIR [Levemir Flextouch] 7 unit SQ QPM 10/02/16 [History] Loratadine [Allergy Relief] 10 mg PO DAILY 10/02/16 [History] Metoprolol Succinate 25 mg PO DAILY 10/02/16 [History] Mv W-Ca/Iron/FA/Lutein/Hrb#179 [Sung Multivit For Women Caplet] 1 each PO DAILY 10/02/16 [History] Potassium Chloride [K-Tab ER] 20 meq PO DAILY 10/02/16 [History] Sennosides [Senna] 8.6 mg PO HS 10/02/16 [History] ALPRAZolam [Xanax 1 MG Tablet] 1 mg PO TID 12/10/17 [History] Empagliflozin [Jardiance] 10 mg PO DAILY 12/10/17 [History] Meloxicam [Mobic] 7.5 mg PO DAILY 12/10/17 [History] Nitroglycerin [Nitrostat] 0.4 mg SL Q5M PRN 12/10/17 [History] FLUoxetine HCl [Prozac] 40 mg PO DAILY capsule 12/14/17 [Rx] OxyCODONE/APAP 5/325 [Percocet 5/325 MG] 1 - 2 tab PO QID PRN 7 Days #20 tablet 12/14/17 [Rx] levoFLOXacin [Levaquin] 750 mg PO DAILY@2100 #6 tablet 12/23/17 [Rx] predniSONE [PredniSONE] 40 mg PO DAILY #4 tablet 12/23/17 [Rx] Allergies/Adverse Reactions: 3 Allergy/AdvReac Type Severity Reaction Status Date / Time No Known Allergies Allergy Verified 12/21/17 18:51 Date of admission: 12/21/17 23:17 Primary care physician: Radha Chinchilla CNP Consults: 12/22/17 00:26 Consult to Production Leader [CONS] Routine Reason for SW Consult: Pt has a brother who is admitted on 2NE. Pt stated she is his caregiver. She said that he is suppose to be discharged tomorrow but there is no one else to take care of him if he is to leave while she is here. Discharging clinician: Betsey Grubbs Anticipated date of discharge: 12/23/17 - Patient Status Disposition: Home, Self-Care Condition: Good Functional capacity at discharge: independent ambulation Overall status at discharge: patient is back to baseline - Discharge Instructions Follow Up With: Radha Chinchilla CNP [Primary Care Provider] - 01/03/18 10:45 am (Please follow up as schedule...) Additional Instructions: Please follow up with your primary care physician within five days after your discharge from the hospital. Please follow up with pulmonology within one to two weeks after your discharge from the hospital. Continue Prednisone and Levaquin as prescribed. Resume all other medications as prescribed by your primary care physician - Diet and Activity Activity: resume usual activities as tolerated Diet: diabetic diet, low fat, low cholesterol, low salt diet Hospital course: Ms. Finnegan is a 67 year old female with PMH of COPD, HTN, HLD who was admitted for acute respiratory distress secondary to COPD exacerbation and PNA. She was also found to have positive UA concerning for UTI. She was started on IV abx, systemic steroids, bronchodilator support to which she responded appropriately. She is currently back to her baseline respiratory status and stable for discharge. She will be discharged to home today with oral steroids and oral antibiotics. Pt demonstrates understanding of her diagnosis and agrees with the discharge care and plan. - Time Spent with Patient Total time spent providing and/or coordinating discharge services: Less than 30 minutes - Constitutional Vitals: Temp Pulse Resp BP Pulse Ox 97.9 F 71 16 116/70 93 12/23/17 11:14 12/23/17 11:14 12/23/17 11:38 12/23/17 11:14 12/23/17 11:38 General appearance: Present: cooperative, A&O X 3, no acute distress, answers questions appropriately - Head Head exam: Present: atraumatic, normocephalic - Eye Eye exam: Present: conjuntiva pink, sclera anicteric - Respiratory Respiratory exam: Present: CTAB. Absent: respiratory distress, wheezes - Cardiovascular Cardiovascular exam: Present: RRR, +S1, +S2. Absent: diastolic murmur, gallop, rubs, systolic murmur - GI/Abdominal GI/Abdominal exam: Present: normal bowel sounds, soft, no peritoneal signs. Absent: distended, tenderness - Extremities Exam Extremities exam: Present: warm, radial pulses palpable and symmetrical. Absent : calf tenderness, pedal edema - Neurological Exam Neurological exam: Present: alert, oriented X3
== END 2017-12-23 15:52 | disposition home or self-care (01) | DRG 190 ==
LOC: EMEROO 18:46 → 2ANU 18:46
PROVIDERS: ADMIT Internal Medicine; ATTEND Internal Medicine

== ENCOUNTER 2019-05-02 06:11 | Observation (INO) ==
[2019-05-02] MEDS ORDERED: Morphine Sulfate 2 MG/ML SYRINGE IVP ONE (08:55)
[2019-05-02] MEDS ORDERED: *HR* HYDROmorphone (PF) 1 MG/ML SYRINGE IM ONE (10:12)
[2019-05-02] MEDS ORDERED: Ondansetron 4 MG/2 ML VIAL IVP PRN (10:42)
[2019-05-02] MEDS ORDERED: Naloxone 0.4 MG/ML INJ IVP PRN (10:42)
[2019-05-02 10:56] LABS: Basophils # 0.1 K/mcL (0.0-0.2); Basophils % 0.5 %; Eosinophils # 0.2 K/mcL (0.0-0.6); Eosinophils % 1.5 %; Hematocrit 39.6 % (35.3-44.9); Hemoglobin 13.1 g/dL (11.5-15.4); Immature Granulocytes % 0.4 % (0-4); Lymphocytes % 23.6 %; Mean Corpuscular HGB Conc 33.1 g/dL (31.6-35.5); Mean Corpuscular Volume 84.6 fL (83.0-100.0); Mean Platelet Volume 11.7 fL (9.4-12.4); Monocytes # 0.8 K/mcL (0.0-1.3); Monocytes % 5.9 %; Neutrophils # 8.7 K/mcL (1.6-8.9); Platelet Count 254 K/mcL (140-400); Red Blood Count 4.68 M/mcL (3.82-4.97); Red Cell Distribution Width 13.2 % (11.5-14.5); Segmented Neutrophils % 68.1 %; White Blood Count 12.8 K/mcL (4.3-11.1)
[2019-05-02 10:58] LABS: Estimated Average Glucose 229 mg/dl
[2019-05-02 11:12] LABS: BUN/Creatinine Ratio 41 (6-26); Blood Urea Nitrogen 25 mg/dL (8-23); Calcium 9.4 mg/dL (8.6-10.3); Carbon Dioxide 28 mEq/L (23-29); Chloride 104 mEq/L (98-107); Glucose 157 mg/dL (70-105); Osmolality,Calculated 296 (280-300); Potassium 3.8 mEq/L (3.5-5.1); Sodium 139 mEq/L (136-145); eGFR For African Americans > 60 (> 60); eGFR For Non-African Americans > 60 (> 60)
[2019-05-02] MEDS ORDERED: *HR* HYDROmorphone (PF) 1 MG/ML SYRINGE IVP ONE (11:15)
[2019-05-02] MEDS ORDERED: Dextrose Gel 15 GM/37.5 ML TUBE PO PRN ×2 (12:33)
[2019-05-02] MEDS ORDERED: D5% in Water 1,000 ML IVC PRN (12:33)
[2019-05-02] MEDS ORDERED: *HR* Dextrose 50 % in Water (Syg) 50 ML SYRINGE IVP PRN (12:33)
[2019-05-02] MEDS: Insulin LISPRO 300 UNITS/3 ML VIAL SQ SCH (17:59)
[2019-05-02] MEDS ORDERED: Loratadine 10 MG TABLET PO PRN (18:27)
[2019-05-02] MEDS ORDERED: Gabapentin 300 MG CAPSULE PO PRN (18:27)
[2019-05-02] MEDS ORDERED: Albuterol 2.5 MG/3 ML NEBULIZER IH PRN (18:27)
[2019-05-02] MEDS ORDERED: *HR* HYDROcodone/Acet 5/325 mg TABLET PO PRN (18:27)
[2019-05-02] MEDS ORDERED: Ropivacaine/PF 0.5% 30 ML VIAL ONE (19:29)
[2019-05-02] MEDS ORDERED: ALPRAZolam 1 MG TABLET PO SCH (21:00)
[2019-05-02] MEDS ORDERED: POTASSIUM CHLORIDE PO SCH (21:00)
[2019-05-02] MEDS ORDERED: Ascorbic Acid 500 MG TABLET PO SCH (21:00)
[2019-05-02] MEDS ORDERED: Ringers Solution, Lactated 1,000 ML IVC SCH (22:30)
[2019-05-02] MEDS ORDERED: *HR* OxyCODONE Immed Rel 5 MG TABLET PO PRN (22:31)
[2019-05-02] MEDS ORDERED: Ipratropium/Albuterol Neb 3 ML IH PRN (22:32)
[2019-05-02] MEDS ORDERED: Ipratropium/Albuterol Neb 3 ML ONE (22:34)
[2019-05-02] MEDS ORDERED: *HR* Midazolam HCl 2 MG/2 ML VIAL ONE (22:38)
[2019-05-02] MEDS ORDERED: *HR* FentaNYL (PF) 100 MCG/2 ML VIAL ONE (22:38)
[2019-05-02] MEDS ORDERED: Bupivacaine/EPI 1:200k 0.25%PF 30 ML VIAL ONE (22:45)
[2019-05-02] MEDS ORDERED: Propofol 500 MG/50 ML INFUS..BTL ONE (23:24)
[2019-05-02] MEDS ORDERED: ceFAZolin 2,000 MG in Water for inj. (sterile) 20 ML IVP ONE (23:30)
[2019-05-02] MEDS ORDERED: *HR* Rocuronium Bromide 50 MG/5 ML VIAL ONE (23:47)
[2019-05-02] MEDS ORDERED: *HR* Propofol 200 MG/20 ML VIAL IVP ONE (23:47)
[2019-05-02] MEDS ORDERED: Lidocaine -MPF 2% 2 ML VIAL ONE (23:47)
[2019-05-03] MEDS ORDERED: *HR* FentaNYL (PF) 100 MCG/2 ML VIAL ONE (00:29)
[2019-05-03] MEDS ORDERED: ceFAZolin 2,000 MG in Water for inj. (sterile) 20 ML IVP ONE ×2 (00:45→02:47)
[2019-05-03] MEDS: Insulin LISPRO 300 UNITS/3 ML VIAL SQ SCH ×4 (01:36→17:11)
[2019-05-03] MEDS ORDERED: Ipratropium/Albuterol Neb 3 ML IH ONE (02:03)
[2019-05-03] MEDS ORDERED: Ondansetron 4 MG/2 ML VIAL IVP PRN (02:47)
[2019-05-03] MEDS ORDERED: Naloxone 0.4 MG/ML INJ IVP PRN (02:47)
[2019-05-03] MEDS ORDERED: Dextrose Gel 15 GM/37.5 ML TUBE PO PRN ×2 (02:47)
[2019-05-03] MEDS ORDERED: D5% in Water 1,000 ML IVC PRN (02:47)
[2019-05-03] MEDS ORDERED: *HR* HYDROcodone/Acet 5/325 mg TABLET PO PRN (02:47)
[2019-05-03] MEDS ORDERED: Albuterol 2.5 MG/3 ML NEBULIZER IH PRN (02:47)
[2019-05-03] MEDS ORDERED: *HR* Dextrose 50 % in Water (Syg) 50 ML SYRINGE IVP PRN (02:47)
[2019-05-03] MEDS ORDERED: Ipratropium/Albuterol Neb 3 ML IH PRN (02:47)
[2019-05-03 06:52] LABS: Bilirubin,Urine Negative (Negative); Blood,Urine Negative (Negative); Clarity,Urine Clear (Clear); Color,Urine Yellow (Yellow); Glucose,Urine (UA) >=1000 mg/dL (Normal); Ketones,Urine 15 mg/dL (Negative); Leukocyte Esterase,Urine Negative (Negative); Nitrite,Urine Negative (Negative); PH,Urine 5.5 pH Units (5.0-8.0); Protein,Urine 30 mg/dL (Neg-Trace); Urobilinogen,Urine Normal (Normal)
[2019-05-03 06:53] LABS: Bacteria,Urine None Seen per hpf (None-Few); Hyaline Casts,Urine None Seen per lpf (None-Few); RBC,Urine 0-3 per hpf (0-3); Squamous Epithelial Cell,Urine Many per lpf (None-Few); WBC,Urine 0-3 per hpf (0-3)
[2019-05-03 06:57] LABS: Basophils % 0.4 %; Hematocrit 38.2 % (35.3-44.9); Hemoglobin 12.5 g/dL (11.5-15.4); Immature Granulocytes % 0.8 % (0-4); Lymphocytes # 0.9 K/mcL (0.6-4.6); Lymphocytes % 9.1 %; Mean Corpuscular HGB Conc 32.7 g/dL (31.6-35.5); Mean Corpuscular Hemoglobin 28.5 pg (28.0-33.3); Mean Corpuscular Volume 87.2 fL (83.0-100.0); Mean Platelet Volume 11.9 fL (9.4-12.4); Monocytes # 0.1 K/mcL (0.0-1.3); Monocytes % 0.8 %; Neutrophils # 8.4 K/mcL (1.6-8.9); Platelet Count 201 K/mcL (140-400); Red Blood Count 4.38 M/mcL (3.82-4.97); Red Cell Distribution Width 13.2 % (11.5-14.5); Segmented Neutrophils % 88.9 %; White Blood Count 9.5 K/mcL (4.3-11.1)
[2019-05-03 07:08] LABS: Prothrombin Time 11.7 Seconds (9.4-12.1)
[2019-05-03 07:10] LABS: Activated Partial Thrombo Time 30.8 Seconds (26.0-36.0); Alanine Aminotransferase 10 Units/L (7-52); Albumin 3.9 g/dL (3.5-5.7); Albumin/Globulin Ratio 1.3 (1.1-2.2); Alkaline Phosphatase 99 Units/L (34-104); Aspartate Amino Transferase 14 Units/L (13-39); BUN/Creatinine Ratio 40 (6-26); Bilirubin,Total 0.5 mg/dL (0.3-1.0); Blood Urea Nitrogen 30 mg/dL (8-23); Carbon Dioxide 26 mEq/L (23-29); Chloride 101 mEq/L (98-107); Chol/HDL Ratio 6.8 (0-4.9); Cholesterol 197 mg/dL (< 200); Globulin 3.1 g/dL (2.4-3.5); Glucose 330 mg/dL (70-105); HDL Cholesterol 29 mg/dL (40-59); LDL Cholesterol,Calculated 106 mg/dL (0-99); Osmolality,Calculated 311 (280-300); Phosphorous 5.3 mg/dL (2.7-4.5); Potassium 4.4 mEq/L (3.5-5.1); Sodium 141 mEq/L (136-145); Triglycerides 311 mg/dL (< 150); eGFR For African Americans > 60 (> 60); eGFR For Non-African Americans > 60 (> 60)
[2019-05-03] MEDS: Ringers Solution, Lactated 1,000 ML IVC SCH (07:55)
[2019-05-03] MEDS ORDERED: ceFAZolin 2,000 MG in 0.9 % Sodium Chloride 100 ML IVPB SCH (08:00)
[2019-05-03] MEDS: *HR* Heparin 5,000 UNIT/ML VIAL SQ SCH ×2 (08:37→17:13)
[2019-05-03] MEDS: Ascorbic Acid 500 MG TABLET PO SCH ×2 (08:38→20:27)
[2019-05-03] MEDS: Multivit/Ca/Min/Fe/FA 1 TAB TABLET PO SCH (08:38)
[2019-05-03] MEDS: Cyanocobalamin (B-12) 1,000 MCG TABLET PO SCH (08:38)
[2019-05-03] MEDS: ALPRAZolam 1 MG TABLET PO SCH ×3 (08:38→20:27)
[2019-05-03] MEDS: Furosemide 40 MG TABLET PO SCH (08:38)
[2019-05-03] MEDS: Aspirin Enteric Coated 81 MG Tablet PO SCH (08:39)
[2019-05-03] MEDS ORDERED: Cyanocobalamin (B-12) 1,000 MCG TABLET PO SCH (09:00)
[2019-05-03] MEDS ORDERED: Aspirin Enteric Coated 81 MG Tablet PO SCH (09:00)
[2019-05-03] MEDS ORDERED: Multivit/Ca/Min/Fe/FA 1 TAB TABLET PO SCH (09:00)
[2019-05-03] MEDS ORDERED: Fluticasone Propionate Nasal 50 MCG/SPRAY BOTTLE NS SCH (09:00)
[2019-05-03] MEDS ORDERED: Furosemide 40 MG TABLET PO SCH (09:00)
[2019-05-03] MEDS ORDERED: Loratadine 10 MG TABLET PO PRN (09:00)
[2019-05-03] MEDS: ceFAZolin 2,000 MG in 0.9 % Sodium Chloride 100 ML IVPB SCH ×2 (12:31→20:27)
[2019-05-03] MEDS: Fluticasone Propionate Nasal 50 MCG/SPRAY BOTTLE NS SCH (12:32)
[2019-05-04] MEDS: Insulin LISPRO 300 UNITS/3 ML VIAL SQ SCH ×5 (00:30→21:15)
[2019-05-04] MEDS: *HR* Heparin 5,000 UNIT/ML VIAL SQ SCH ×2 (05:37→17:11)
[2019-05-04] MEDS: Aspirin Enteric Coated 81 MG Tablet PO SCH (08:37)
[2019-05-04] MEDS: Furosemide 40 MG TABLET PO SCH (08:37)
[2019-05-04] MEDS: Ascorbic Acid 500 MG TABLET PO SCH ×2 (08:37→21:16)
[2019-05-04] MEDS: Multivit/Ca/Min/Fe/FA 1 TAB TABLET PO SCH (08:37)
[2019-05-04] MEDS: Cyanocobalamin (B-12) 1,000 MCG TABLET PO SCH (08:38)
[2019-05-04] MEDS: ALPRAZolam 1 MG TABLET PO SCH ×3 (08:38→21:16)
[2019-05-04] MEDS: Fluticasone Propionate Nasal 50 MCG/SPRAY BOTTLE NS SCH (08:40)
[2019-05-04] MEDS: Gabapentin 300 MG CAPSULE PO PRN (09:48)
[2019-05-04 14:49] LABS: Basophils # 0.1 K/mcL (0.0-0.2); Basophils % 0.4 %; Eosinophils # 0.1 K/mcL (0.0-0.6); Eosinophils % 0.9 %; Hematocrit 38.6 % (35.3-44.9); Hemoglobin 12.5 g/dL (11.5-15.4); Immature Granulocytes % 0.5 % (0-4); Lymphocytes # 3.2 K/mcL (0.6-4.6); Lymphocytes % 25.1 %; Mean Corpuscular HGB Conc 32.4 g/dL (31.6-35.5); Mean Corpuscular Hemoglobin 28.5 pg (28.0-33.3); Mean Corpuscular Volume 88.1 fL (83.0-100.0); Mean Platelet Volume 12.2 fL (9.4-12.4); Monocytes # 0.8 K/mcL (0.0-1.3); Monocytes % 6.6 %; Neutrophils # 8.5 K/mcL (1.6-8.9); Platelet Count 237 K/mcL (140-400); Red Blood Count 4.38 M/mcL (3.82-4.97); Red Cell Distribution Width 13.2 % (11.5-14.5); Segmented Neutrophils % 66.5 %; White Blood Count 12.8 K/mcL (4.3-11.1)
[2019-05-04 15:03] LABS: Calcium 9.1 mg/dL (8.6-10.3); Potassium 3.7 mEq/L (3.5-5.1)
[2019-05-04] MEDS: Ringers Solution, Lactated 1,000 ML IVC SCH (21:14)
[2019-05-05] MEDS: Ringers Solution, Lactated 1,000 ML IVC SCH (04:49)
[2019-05-05] MEDS: *HR* Heparin 5,000 UNIT/ML VIAL SQ SCH ×2 (06:01→17:13)
[2019-05-05 07:57] LABS: Hematocrit 38.9 % (35.3-44.9); Hemoglobin 12.4 g/dL (11.5-15.4); Mean Corpuscular HGB Conc 31.9 g/dL (31.6-35.5); Mean Corpuscular Hemoglobin 27.7 pg (28.0-33.3); Mean Platelet Volume 12.2 fL (9.4-12.4); Platelet Count 227 K/mcL (140-400); Red Blood Count 4.47 M/mcL (3.82-4.97); Red Cell Distribution Width 13.2 % (11.5-14.5); White Blood Count 10.3 K/mcL (4.3-11.1)
[2019-05-05] MEDS: ALPRAZolam 1 MG TABLET PO SCH ×3 (08:01→20:22)
[2019-05-05] MEDS: Aspirin Enteric Coated 81 MG Tablet PO SCH (08:01)
[2019-05-05] MEDS: Furosemide 40 MG TABLET PO SCH (08:02)
[2019-05-05] MEDS: Cyanocobalamin (B-12) 1,000 MCG TABLET PO SCH (08:02)
[2019-05-05] MEDS: Multivit/Ca/Min/Fe/FA 1 TAB TABLET PO SCH (08:02)
[2019-05-05] MEDS: Ascorbic Acid 500 MG TABLET PO SCH ×2 (08:02→20:22)
[2019-05-05] MEDS: Fluticasone Propionate Nasal 50 MCG/SPRAY BOTTLE NS SCH (08:03)
[2019-05-05] MEDS: Insulin LISPRO 300 UNITS/3 ML VIAL SQ SCH ×4 (08:03→22:00)
[2019-05-05 08:19] LABS: BUN/Creatinine Ratio 47 (6-26); Blood Urea Nitrogen 38 mg/dL (8-23); Carbon Dioxide 32 mEq/L (23-29); Chloride 100 mEq/L (98-107); Glucose 170 mg/dL (70-105); Osmolality,Calculated 305 (280-300); Potassium 3.6 mEq/L (3.5-5.1); Sodium 141 mEq/L (136-145); eGFR For African Americans > 60 (> 60); eGFR For Non-African Americans > 60 (> 60)
[2019-05-06] MEDS: *HR* Heparin 5,000 UNIT/ML VIAL SQ SCH ×2 (05:52→18:06)
[2019-05-06] MEDS: Aspirin Enteric Coated 81 MG Tablet PO SCH (08:48)
[2019-05-06] MEDS: Multivit/Ca/Min/Fe/FA 1 TAB TABLET PO SCH (08:48)
[2019-05-06] MEDS: Cyanocobalamin (B-12) 1,000 MCG TABLET PO SCH (08:48)
[2019-05-06] MEDS: Ascorbic Acid 500 MG TABLET PO SCH ×2 (08:49→20:14)
[2019-05-06] MEDS: Furosemide 40 MG TABLET PO SCH (08:49)
[2019-05-06] MEDS: ALPRAZolam 1 MG TABLET PO SCH ×3 (08:57→20:09)
[2019-05-06] MEDS: Insulin LISPRO 300 UNITS/3 ML VIAL SQ SCH ×3 (08:57→17:58)
[2019-05-06] MEDS: Fluticasone Propionate Nasal 50 MCG/SPRAY BOTTLE NS SCH (12:48)
[2019-05-06] MEDS: Gabapentin 300 MG CAPSULE PO PRN (18:06)
[2019-05-06 19:27] VITALS: BP 158/68
== END 2019-05-06 21:00 ==
LOC: 3NENU
PROVIDERS: ADMIT Internal Medicine; ATTEND Internal Medicine

== ENCOUNTER 2019-07-10 12:15 | Inpatient (IN) ==
[2019-07-10] MEDS ORDERED: Isovue-370 500 ML BOTTLE IVP ONE (12:28)
[2019-07-10] MEDS ORDERED: 0.9 % Sodium Chloride 1,000 ML IVC ONE (12:28)
[2019-07-10] MEDS ORDERED: Piperacillin/Tazobactam 3.375 GM in 0.9 % Sodium Chloride Mini Bag 100 ML IVPB ONE (12:30)
--- NOTE | 2019-07-10 12:36 | Emergency Department Note ---
Disposition Clinical Impression: Left foot infection, Cellulitis of left foot Sepsis Qualifiers: Sepsis type: sepsis due to unspecified organism Sepsis acute organ dysfunction status: unspecified Qualified Code(s): A41.9 - Sepsis, unspecified organism Disposition: Admitted As Inpatient Referrals: Radha Chinchilla CNP [Primary Care Provider] - Forms: ED Satisfaction Letter, Work/School Release Time of Disposition: 14:59 General Adult HPI - General Chief complaint: ED General Medical Stated complaint: "needs admitted" Time Seen by Provider: 07/10/19 12:24 Source: patient Mode of arrival: private vehicle Limitations: no limitations Nursing Notes Reviewed: Yes Vital Signs Reviewed: Yes - History of Present Illness HPI Narrative: Patient is a 69-year-old female with history of diabetes, hypertension, hypercholesterolemia, anemia, COPD who presents today with a left foot infection. Patient states this wound has been present from April and she has been seeing Dr. Nicholson podiatry for wound care and antibiotics. Her last appointment was on 07/04, in which wound culture was taken and was positive for Raoultella [place]. At this time she was also prescribed Augmentin, and is currently still taking this prescription. She is currently having pain in the left plantar aspect of her foot, she rates the pain as 10 out of 10, describes the pain as a stabbing pain, and is somewhat relieved by her prescribed hydrocodone. She denies chest pain, shortness of breath, fevers, chills, nausea, vomiting, diarrhea, constipation. Pain Scale: 10 - Related Data Home Medications Medication Instructions Recorded Confirmed Albuterol Neb [Proventil Neb] 2.5 mg IH Q6HR PRN 10/02/16 05/12/19 Mv W-Ca/Iron/FA/Lutein/Hrb#179 1 tab PO DAILY 10/02/16 05/12/19 [Sung Multivit For Women Caplet] Nitroglycerin [Nitrostat] 0.4 mg SL Q5M PRN 12/10/17 05/12/19 Cyclobenzaprine [Flexeril] 10 mg PO TID PRN 02/05/18 05/12/19 Ascorbic Acid [Vitamin C] 500 mg PO BID 04/03/19 05/12/19 Atorvastatin Calcium [Lipitor] 20 mg PO DAILY 04/03/19 05/12/19 Beclomethasone Dip 40mcg REDIH 2 puff IH DAILY 04/03/19 05/12/19 [Qvar 40 Mcg Redihaler] Ferrous Sulfate 325 mg PO DAILY 04/03/19 05/12/19 Loratadine [Allergy Relief] 10 mg PO DAILY PRN 04/03/19 05/12/19 Potassium Chloride [K-Tab ER] 20 meq PO DAILY 04/03/19 05/12/19 Gabapentin [Neurontin] 300 mg PO QAM 04/09/19 05/12/19 Albuterol Sulfate [Proventil 2 puff IH Q4-6H PRN 05/03/19 05/12/19 Inhaler] Alprazolam [Xanax] 2 mg PO TID PRN 05/03/19 05/12/19 Aspirin [Adult Aspirin Regimen] 81 mg PO DAILY 05/03/19 05/12/19 Cyanocobalamin (Vitamin B-12) 1,000 mcg PO BID 05/03/19 05/12/19 [Vitamin B-12] Fluticasone Propionate Nasal 2 spray NS BID 05/03/19 05/12/19 [Flonase] Gabapentin [Neurontin] 300 mg PO QPM 05/03/19 05/12/19 Zolpidem [Ambien] 10 mg PO HS PRN 05/03/19 05/12/19 HYDROcodone/Acet 7.5/325 mg [[place] 1 tab PO Q4HR PRN 07/10/19 07/10/19 7.5-325 mg] Previous Rx's Medication Instructions Recorded Cholecalciferol (D-3) [Vitamin D] 1,000 unit PO DAILY #30 tablet 05/25/19 Omeprazole [PriLOSEC] 20 mg PO DAILY capsule. 05/25/19 Ondansetron ODT [Zofran ODT] 4 mg SL Q4HR PRN #12 tab.rapdis 05/25/19 Allergies Allergy/AdvReac Type Severity Reaction Status Date / Time No Known Allergies Allergy Verified 05/03/19 18:37 All systems ED: reviewed and negative except as stated. Review of Systems: As Per HPI Constitutional: Denies: fever, chills Cardiovascular: Denies: chest pain, palpitations Respiratory: Denies: dyspnea Gastrointestinal: Denies: abdominal pain, vomiting Genitourinary: Denies: dysuria Musculoskeletal: Reports: other (lfet foot pain and infection) Past Medical History - Past Medical History Attestation: Yes The following information was validated with the patient. Source: patient Medical history: Reports: non-contributory Surgical history: Reports: appendectomy, cholecystectomy, coronary bypass (CABG), herniorrhaphy, hysterectomy Psychiatric history: Reports: depression - Social History Smoking Status: Current every day smoker Smokeless Tobacco Status: No Alcohol use: Reports: none Drug use: Reports: none Physical Exam - General Limitations: no limitations General appearance: alert, in no apparent distress - Head Head exam: atraumatic, normocephalic - Eye Eye exam: Present: normal appearance, EOMI - ENT ENT exam: normal exam, normal oropharynx - Neck Neck exam: Present: normal inspection, trachea midline - Chest Chest inspection: Present: normal inspection, symmetric chest wall rise - Respiratory Respiratory exam: Present: normal lung sounds bilaterally. Absent: respiratory distress, wheezes - Cardiovascular Cardiovascular exam: Present: normal rhythm, tachycardia - Abdominal Exam Abdominal exam: Present: soft, Non-Tender. Absent: distention - Extremities Exam Extremities exam: Present: normal capillary refill, other (Left foot on the mid dorsal portion with the large wound into the subcutaneous tissue.Drainage with surrounding cellulitic changes. Appears worsened from the wounds picture taken on July 04. Foul-smelling.) - Neurological Exam Neurological exam: Present: alert, oriented X3 - Psychiatric Psychiatric exam: Present: normal affect, normal mood - Skin Skin exam: Present: warm Course Vital Signs Temperature 97.8 F 07/10/19 12:16 Pulse Rate 105 07/10/19 12:16 Respiratory Rate 20 07/10/19 12:16 Blood Pressure 141/87 07/10/19 12:16 O2 Sat by Pulse Oximetry 93 07/10/19 12:16 Temperature 97.8 F 07/10/19 12:16 Pulse Rate 90 07/10/19 14:43 Respiratory Rate 18 07/10/19 14:43 Blood Pressure 164/82 07/10/19 14:43 O2 Sat by Pulse Oximetry 94 07/10/19 14:43 Oxygen Delivery Oxygen Delivery Room Air Medical Decision Making - [facility] Narrative Medical decision making narrative: Patient is presenting with a large left foot infection with surrounding celluli tis and with purulent drainage, foul-smelling. Patient is slightly tachycardic and tachypneic. We will obtain septic workup, CBC, BMP, lactate, blood cultures, ESR and CRP, we will obtain CT left lower extremity to evaluate for osteomyelitis. Vancomycin and Zosyn ordered. Patient was sent in for right vascular surgery to be admitted as she has scheduled surgery tomorrow. Once labs and imaging return, will call up Podiatry, Dr. Nicholson, as he sent the patient in and if we cannot get a hold of him, will call Dr. Gibbs, adjunct communications faculty member medical billing associate. Will give 1L IVFs and fentanyl for pain. BP normotensive. patient states she is to receive surgery in the morning. 14:35 Labs and imaging reviewed. Elevated ESR and CRP, mild leukocytosis. Lactate normal. CT shows new multiple foci of air about the joint and hardware with overlying soft tissue irregularity concerning for infection with no well-defined fluid collection. Podiatry paged. Dr. Nicholson still in surgery. 14:[address] Gibbs, Podiatry. Consult placed. Hospitalist paged for admission. 14:[address] Valenzuela, hospitalist, who accepts admission - Medical Records Medical records reviewed: Yes I reviewed the patient's medical records. - Lab Data Lab results reviewed: Yes I reviewed the patient's lab results. Result diagrams: 07/10/19 12:52 07/10/19 12:52 Lab Results 07/10/19 07/10/19 07/10/19 Range/Units 12:52 12:52 12:52 WBC 11.7 H (4.3-11.1) K/mcL RBC 4.55 (3.82-4.97) M/mcL Hgb 12.7 (11.5-15.4) g/dL Hct 39.0 (35.3-44.9) % MCV 85.7 (83.0-100.0) fL MCH 27.9 L (28.0-33.3) pg MCHC 32.6 (31.6-35.5) g/dL RDW 13.2 (11.5-14.5) % Plt Count 311 (140-400) K/mcL MPV 11.3 (9.4-12.4) fL Immature Gran % 0.4 (0-4) % Seg Neutrophils % 77.5 % Lymphocytes % 16.4 % Monocytes % 4.5 % Eosinophils % 0.8 % Basophils % 0.4 % Neutrophils # 9.0 H (1.6-8.9) K/mcL Lymphocytes # 1.9 (0.6-4.6) K/mcL Monocytes # 0.5 (0.0-1.3) K/mcL Eosinophils # 0.1 (0.0-0.6) K/mcL Basophils # 0.1 (0.0-0.2) K/mcL ESR 75 H (0-15) mm/hr Sodium 141 (136-145) mEq/L Potassium 3.5 (3.5-5.1) mEq/L Chloride 104 (98-107) mEq/L Carbon Dioxide 29 (23-29) mEq/L BUN 13 (8-23) mg/dL Creatinine 0.60 (0.60-1.20) mg/dL Est GFR ( Amer) > 60 (> 60) Est GFR (Non-Af Amer) > 60 (> 60) BUN/Creatinine Ratio 22 (6-26) Glucose 292 H (70-105) mg/dL Calculated Osmolality 303 H (280-300) Lactic Acid (0.5-2.2) mmol/L Calcium 9.3 (8.6-10.3) mg/dL C-Reactive Protein 37 H (Less than 10) mg/L 07/10/19 Range/Units 12:52 WBC (4.3-11.1) K/mcL RBC (3.82-4.97) M/mcL Hgb (11.5-15.4) g/dL Hct (35.3-44.9) % MCV (83.0-100.0) fL MCH (28.0-33.3) pg MCHC (31.6-35.5) g/dL RDW (11.5-14.5) % Plt Count (140-400) K/mcL MPV (9.4-12.4) fL Immature Gran % (0-4) % Seg Neutrophils % % Lymphocytes % % Monocytes % % Eosinophils % % Basophils % % Neutrophils # (1.6-8.9) K/mcL Lymphocytes # (0.6-4.6) K/mcL Monocytes # (0.0-1.3) K/mcL Eosinophils # (0.0-0.6) K/mcL Basophils # (0.0-0.2) K/mcL ESR (0-15) mm/hr Sodium (136-145) mEq/L Potassium (3.5-5.1) mEq/L Chloride (98-107) mEq/L Carbon Dioxide (23-29) mEq/L BUN (8-23) mg/dL Creatinine (0.60-1.20) mg/dL Est GFR ( Amer) (> 60) Est GFR (Non-Af Amer) (> 60) BUN/Creatinine Ratio (6-26) Glucose (70-105) mg/dL Calculated Osmolality (280-300) Lactic Acid 2.1 (0.5-2.2) mmol/L Calcium (8.6-10.3) mg/dL C-Reactive Protein (Less than 10) mg/L - Radiology Data Radiology results reviewed: Yes I reviewed the patient's radiology results. Foot CT 07/10/19 12:28 IMPRESSION: Postsurgical changes from prior 1st TMT joint arthrodesis without significant osseous fusion. New from the prior study are multiple foci of air about the joint and hardware with overlying soft tissue irregularity concerning for infection. No well-defined fluid collection is seen. D/ / David Sandoval / David Sandoval Interpreting Provider: David Sandoval
[2019-07-10] MEDS ORDERED: *HR* FentaNYL (PF) 100 MCG/2 ML VIAL IVP ONE (13:05)
[2019-07-10 13:27] LABS: BUN/Creatinine Ratio 22 (6-26); Blood Urea Nitrogen 13 mg/dL (8-23); C-Reactive Protein 37 mg/L (Less than 10); Calcium 9.3 mg/dL (8.6-10.3); Carbon Dioxide 29 mEq/L (23-29); Chloride 104 mEq/L (98-107); Glucose 292 mg/dL (70-105); Osmolality,Calculated 303 (280-300); Potassium 3.5 mEq/L (3.5-5.1); Sodium 141 mEq/L (136-145); eGFR For African Americans > 60 (> 60); eGFR For Non-African Americans > 60 (> 60)
[2019-07-10 13:33] LABS: Basophils # 0.1 K/mcL (0.0-0.2); Basophils % 0.4 %; Eosinophils # 0.1 K/mcL (0.0-0.6); Eosinophils % 0.8 %; Hemoglobin 12.7 g/dL (11.5-15.4); Immature Granulocytes % 0.4 % (0-4); Lymphocytes # 1.9 K/mcL (0.6-4.6); Lymphocytes % 16.4 %; Mean Corpuscular HGB Conc 32.6 g/dL (31.6-35.5); Mean Corpuscular Hemoglobin 27.9 pg (28.0-33.3); Mean Corpuscular Volume 85.7 fL (83.0-100.0); Mean Platelet Volume 11.3 fL (9.4-12.4); Monocytes # 0.5 K/mcL (0.0-1.3); Monocytes % 4.5 %; Platelet Count 311 K/mcL (140-400); Red Blood Count 4.55 M/mcL (3.82-4.97); Red Cell Distribution Width 13.2 % (11.5-14.5); Segmented Neutrophils % 77.5 %; White Blood Count 11.7 K/mcL (4.3-11.1)
--- NOTE | 2019-07-10 15:36 | Podiatry Consult Note ---
Date of Encounter: 07/10/19 Time of Encounter: 15:33 Assessment and Plan (1) Cellulitis of left foot Current visit: Yes Status: Acute Assessment: Erythema and edema of left foot Ulceration noted to left calcaneous, left lateral foot, and left dorsal foot Malodorous WBC 11.7, afebrile ESR 75, CRP 37 07/04/19 Wound cultures returned raoultella planticola Blood cultures pending 07/03/19 tcp02 R ankle 37, R foot 29, L ankle 28, L foot 24 07/03/19 ABIs bilaterally within normal limits CT negative for OM or abscess Plan: NPO after MN Surgery tomorrow for debridement Dressing changed, see below Continue IV atb per medicine recommendations Cleansed with 0.9 NS Covered all ulcerations with adaptic, 4x4 dry gauze, kerlix, and medipore tape Imaging: CT/CT foot LT w con IMPRESSION: Postsurgical changes from prior 1st TMT joint arthrodesis without significant osseous fusion. New from the prior study are multiple foci of air about the joint and hardware with overlying soft tissue irregularity concerning for infection. No well-defined fluid collection is seen. D/ / David Sandoval / David Sandoval Interpreting Provider: David Sandoval (2) Non-healing surgical wound Current visit: Yes Status: Acute See above Qualifiers: Encounter type: initial encounter Qualified Code(s): T81.89XA - Other complications of procedures, not elsewhere classified, initial encounter History of Present Illness Chief complaint: Left foot wound HPI: Ms. Finnegan is a 69 year old female who presented to the ER today with complaints of 10/10 left foot pain. Patient is known to the podiatry group, follows with Dr. Nicholson in the outpatient setting. PMH of COPD, CAD, DM II, GERD, HLD, HTN, MS, CABG, kidney stones, anemia, MRSA, and sleep apnea. Briefly Ms. Quigley is a 69-year-old female presents today with complaints of 10/10 left foot pain. Patient was scheduled for outpatient debridement for tomorrow, 07/11/19. Patient reports she has been following with Dr. Nicholson in the wound care center ever since she fell and broke her ankle/foot. Surgery was on 05/03/19. Reports nonhealing wound due to diabetes. Denies any fevers, chills, nausea, vomiting, or diarrhea. Denies any calf pain, chest pain, or shortness of breath. Discussed surgical intervention tomorrow. Patient agreeable. Discussed NPO after midnight. Patient verbalized understanding. No other questions or concerns at this time. Past Med Surg Social Fam HX - Past Medical History Medical history: non-contributory Additional medical history: ANEMIA, MRSA, WEARS HOME 02 AT 2LITERS NEEDED, SLEEP APNEA Psychiatric history: depression - Past Surgical History Surgical History: appendectomy, cholecystectomy, coronary bypass (CABG), herniorrhaphy, hysterectomy Additional surgical history: I&D TO STERNAL WOUND INFECTION - Social History Smoking Status: Current every day smoker Smokeless Tobacco Status: No Alcohol use: none Drug use: none - Family History Mother Living Status: Hx Family Cancer: Yes Hx Family Endocrine Disorder: Yes Father Living Status: Hx Family Cancer: Yes Hx Family Endocrine Disorder: Yes Medications and Allergies Albuterol Neb [Proventil Neb] 2.5 mg IH Q6HR PRN 10/02/16 [History] Mv W-Ca/Iron/FA/Lutein/Hrb#179 [Sung Multivit For Women Caplet] 1 tab PO DAILY 10/02/16 [History] Nitroglycerin [Nitrostat] 0.4 mg SL Q5M PRN 12/10/17 [History] Cyclobenzaprine [Flexeril] 10 mg PO TID PRN 02/05/18 [History] Ascorbic Acid [Vitamin C] 500 mg PO BID 04/03/19 [History] Atorvastatin Calcium [Lipitor] 20 mg PO DAILY 04/03/19 [History] Beclomethasone Dip 40mcg REDIH [Qvar 40 Mcg Redihaler] 2 puff IH DAILY 04/03/19 [History] Ferrous Sulfate 325 mg PO DAILY 04/03/19 [History] Loratadine [Allergy Relief] 10 mg PO DAILY PRN 04/03/19 [History] Potassium Chloride [K-Tab ER] 20 meq PO DAILY 04/03/19 [History] Gabapentin [Neurontin] 300 mg PO QAM 04/09/19 [History] Albuterol Sulfate [Proventil Inhaler] 2 puff IH Q4-6H PRN 05/03/19 [History] Alprazolam [Xanax] 2 mg PO TID PRN 05/03/19 [History] Aspirin [Adult Aspirin Regimen] 81 mg PO DAILY 05/03/19 [History] Cyanocobalamin (Vitamin B-12) [Vitamin B-12] 1,000 mcg PO BID 05/03/19 [History] Fluticasone Propionate Nasal [Flonase] 2 spray NS BID 05/03/19 [History] Gabapentin [Neurontin] 300 mg PO QPM 05/03/19 [History] Zolpidem [Ambien] 10 mg PO HS PRN 05/03/19 [History] Cholecalciferol (D-3) [Vitamin D] 1,000 unit PO DAILY #30 tablet 05/25/19 [Rx] Omeprazole [PriLOSEC] 20 mg PO DAILY capsule. 05/25/19 [Rx] Ondansetron ODT [Zofran ODT] 4 mg SL Q4HR PRN #12 tab.rapdis 05/25/19 [Rx] HYDROcodone/Acet 7.5/325 mg [[place] 7.5-325 mg] 1 tab PO Q4HR PRN 07/10/19 [History] Allergy/AdvReac Type Severity Reaction Status Date / Time No Known Allergies Allergy Verified 05/03/19 18:37 All Systems Reviewed: The remainder of the systems were reviewed and are negative - Constitutional Constitutional: no fever(s) - Cardiovascular Cardiovascular: pedal edema, other (pedal ulcer), no chest pain - Respiratory Respiratory: no dyspnea - Musculoskeletal Musculoskeletal: as per HPI Physical Exam - Constitutional Vitals: Temp Pulse Resp BP Pulse Ox 97.8 F 90 18 164/82 94 07/10/19 12:16 07/10/19 14:43 07/10/19 14:43 07/10/19 14:43 07/10/19 14:43 Exam: Constitiutional: Alert and oriented x 3. Well nourished. No acute distress noted Vascular: faint DP/PT LLE, CFT <3 sec to all digits LLE, warm to warm from tibia to toes LLE, no calf pain with squeeze LLE Neurologic: Sensation to touch, normal plantar response Dermatologic: Ulcerations noted to left calcaneous, left dorsal foot, left la teral foot, slough noted to all wound beds. malodorous, erythema noted to periwound, minimal edema noted Musculoskeletal: 3/5 muscle strength and normal tone bilaterally. Results - Labs Result Diagrams: 07/10/19 12:52 07/10/19 12:52 Labs: Abnormal lab results WBC 11.7 K/mcL (4.3-11.1) H 07/10/19 12:52 MCH 27.9 pg (28.0-33.3) L 07/10/19 12:52 Neutrophils # 9.0 K/mcL (1.6-8.9) H 07/10/19 12:52 ESR 75 mm/hr (0-15) H 07/10/19 12:52 Glucose 292 mg/dL (70-105) H 07/10/19 12:52 Calculated Osmolality 303 (280-300) H 07/10/19 12:52 C-Reactive Protein 37 mg/L (Less than 10) H 07/10/19 12:52 H & H 07/10/19 Range/Units 12:52 Hgb 12.7 (11.5-15.4) g/dL Hct 39.0 (35.3-44.9) % All other labs normal. Consult Discharge Plan - Plan Referrals: Radha Chinchilla, ALEJANDRO [Primary Care Provider] -
[2019-07-10] MEDS ORDERED: Naloxone 0.4 MG/ML INJ IVP PRN (15:38)
[2019-07-10] MEDS ORDERED: Acetaminophen 325 MG TABLET PO PRN (15:38)
[2019-07-10] MEDS ORDERED: *HR* HYDROcodone/Acet 5/325 mg TABLET PO PRN (15:38)
[2019-07-10] MEDS ORDERED: Ondansetron 4 MG/2 ML VIAL IVP PRN (15:38)
--- NOTE | 2019-07-10 15:59 | Internal Med History&Physical ---
Date of Encounter: 07/10/19 Time of Encounter: 15:20 Internal Medicine - H&P: HPI Chief complaint: Celulitis Admitted From: Emergency Dept Plans for Post Hospital Care: Home History of present illness: Ms. Finnegan is a 69 year old female with a past medical history significant for hypertension, diabetes mellitus, left fibular fracture and left 1-4 metatarsal fractures status post ORIF surgery on 05/03/2018 with plate and screws repairs, was sent to the emergency department from the podiatry office because of the concerns of left foot infection. Patient underwent rehabilitation after surgery and following up with the podiatry for the wound care. Her last visit was on 07/04, wound culture from that visit showed roultella planticola, sensitive to Augmentin. Patient was taking Augmentin at home but her wound and symptoms are gradually worsening. She came to the emergency department today. Podiatry advised to admit the patient and possibly a debridement tomorrow. Patient is complaining of pain in the left plantar aspect of her foot which she rated as 10/10, stabbing, nonradiating, aggravated with motion, no relieving factors. Denies fever, chills, rigors. Denies chest pain, shortness of breath. Denies nausea, vomiting, diarrhea. Denies dysuria, hematuria, increased urinary frequency. She was otherwise hemodynamically stable in the emergency department. The CT scan of the foot showed postsurgical changes from prior first TMT joint arthrodesis without significant osseous fusion. New from the prior study are multiple foci of air about the joint and hardware with overlying soft tissue irregularity concerning for infection. No well-defined fluid collection is seen. Patient was given IV vancomycin and IV Zosyn in the emergency department and admitted for further management. Past Med Surg Social Fam HX - Past Medical History Medical history: non-contributory Additional medical history: ANEMIA, MRSA, WEARS HOME 02 AT 2LITERS NEEDED, SLEEP APNEA Psychiatric history: depression - Past Surgical History Surgical History: appendectomy, cholecystectomy, coronary bypass (CABG), herniorrhaphy, hysterectomy Additional surgical history: I&D TO STERNAL WOUND INFECTION - Social History Smoking Status: Current every day smoker Smokeless Tobacco Status: No Alcohol use: none Drug use: none - Family History Mother Living Status: Hx Family Cancer: Yes Hx Family Endocrine Disorder: Yes Father Living Status: Hx Family Cancer: Yes Hx Family Endocrine Disorder: Yes Internal Medicine - H&P: Meds Albuterol Neb [Proventil Neb] 2.5 mg IH Q6HR PRN 10/02/16 [History] Mv W-Ca/Iron/FA/Lutein/Hrb#179 [Sung Multivit For Women Caplet] 1 tab PO DAILY 10/02/16 [History] Nitroglycerin [Nitrostat] 0.4 mg SL Q5M PRN 12/10/17 [History] Cyclobenzaprine [Flexeril] 10 mg PO TID PRN 02/05/18 [History] Ascorbic Acid [Vitamin C] 500 mg PO BID 04/03/19 [History] Atorvastatin Calcium [Lipitor] 20 mg PO DAILY 04/03/19 [History] Beclomethasone Dip 40mcg REDIH [Qvar 40 Mcg Redihaler] 2 puff IH DAILY 04/03/19 [History] Ferrous Sulfate 325 mg PO DAILY 04/03/19 [History] Loratadine [Allergy Relief] 10 mg PO DAILY PRN 04/03/19 [History] Potassium Chloride [K-Tab ER] 20 meq PO DAILY 04/03/19 [History] Gabapentin [Neurontin] 300 mg PO QAM 04/09/19 [History] Albuterol Sulfate [Proventil Inhaler] 2 puff IH Q4-6H PRN 05/03/19 [History] Alprazolam [Xanax] 2 mg PO TID PRN 05/03/19 [History] Aspirin [Adult Aspirin Regimen] 81 mg PO DAILY 05/03/19 [History] Cyanocobalamin (Vitamin B-12) [Vitamin B-12] 1,000 mcg PO BID 05/03/19 [History] Fluticasone Propionate Nasal [Flonase] 2 spray NS BID 05/03/19 [History] Gabapentin [Neurontin] 300 mg PO QPM 05/03/19 [History] Zolpidem [Ambien] 10 mg PO HS PRN 05/03/19 [History] Cholecalciferol (D-3) [Vitamin D] 1,000 unit PO DAILY #30 tablet 05/25/19 [Rx] Omeprazole [PriLOSEC] 20 mg PO DAILY capsule. 05/25/19 [Rx] Ondansetron ODT [Zofran ODT] 4 mg SL Q4HR PRN #12 tab.rapdis 05/25/19 [Rx] HYDROcodone/Acet 7.5/325 mg [[place] 7.5-325 mg] 1 tab PO Q4HR PRN 07/10/19 [History] 3 Allergy/AdvReac Type Severity Reaction Status Date / Time No Known Allergies Allergy Verified 05/03/19 18:37 All Systems PM: A 10-system review of systems was performed and is negative for pertinent findings except as documented above in the HPI. Review of systems: General: Negative for fever, chills, rigors. HEENT: Negative for neck swelling, discharge from nose, discharge from ears. EYES: Negative for any discharge from the eyes. Respiratory: Negative for shortness of breath, orthopnea, exertional dyspnea. Cardiovascular: Negative for chest pain, shortness of breath, orthopnea, PND. Gastrintestical: Negative for diarrhea, constipation, blood in stools. Genitourinary: Negative for dysuria, hematuria, nocturia, increased frequency of urine. Hematological: Negative for blood loss, negative for active cancer. Neurological: Negative for headache, dizziness, blurry vision, loss os power and sensations. Endocrinology: Negative for constipation, polyuria, polydipsia. Integumentary: See HPI Psychiatric: Negative for anxiety or depression. - Constitutional Vitals: Temp Pulse Resp BP Pulse Ox 97.8 F 90 18 164/82 94 07/10/19 12:16 07/10/19 14:43 07/10/19 14:43 07/10/19 14:43 07/10/19 14:43 Exam: General: Alert and oriented, no physical distress, able to follow commands. HEENT: No thyromegaly, no lymphadenopathy, no discharge. Eyes: No discharge. Normal conjuctiva, no icterus Respiratory: Normal vesicular breathing, no added sounds, breathing equal in both sides. CVS: Normal heart sounds, no murmurs, regular rhthm, no edema Extremities: No peripheral edema, peripheral pulses intact. The dorsal portion of the left foot with a large wound, drainage with surrounding cellulitis changes, foul-smelling, tenderness on mild palpation. No blood Lymph nodes: No lymphadenopathy Gastrointestinal: Soft, nontender abdomen, normal abdominal sounds. No distention noted. Genitourinary: No paravertebral tenderness. Skin: No rash, ulcers or wound. Neurological: Alert and oriented. No focal deficits. Cranial nerves II-XII intact. Internal Med - H&P Results - Labs CBC & Chem 7: 07/10/19 12:52 07/10/19 12:52 Labs: Short CBC 07/10/19 Range/Units 12:52 WBC 11.7 H (4.3-11.1) K/mcL Hgb 12.7 (11.5-15.4) g/dL Hct 39.0 (35.3-44.9) % Plt Count 311 (140-400) K/mcL Neutrophils # 9.0 H (1.6-8.9) K/mcL BMP 07/10/19 12:52 Sodium 141 Potassium 3.5 Chloride 104 Carbon Dioxide 29 BUN 13 Creatinine 0.60 Glucose 292 H Calcium 9.3 - Impressions ITS Impressions Foot CT 07/10/19 12:28 IMPRESSION: Postsurgical changes from prior 1st TMT joint arthrodesis without significant osseous fusion. New from the prior study are multiple foci of air about the joint and hardware with overlying soft tissue irregularity concerning for infection. No well-defined fluid collection is seen. D/ / David Sandoval / David Sandoval Interpreting Provider: David Sandoval - Assessment and Plan (1) Cellulitis of left foot Current Visit: Yes Status: Acute Assessment and plan: Cellulitis of the left foot. Ulceration noted on the left calcaneous, left lateral foot, and left dorsal foot WBC count 11.7. Afebrile. ESR of 75, CRP of 27. 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 CT scan negative for osteomyelitis. Podiatry on board. Patient will be nothing by mouth after midnight Debridement toorrow Wound care consult. Continue the patient on IV vancomycin and IV Zosyn at this point. May need to consult ID. (2) Left foot infection Current Visit: Yes Status: Acute Assessment and plan: Plan mentioned above (3) Non-healing surgical wound Current Visit: Yes Status: Acute Assessment and plan: Plan mentoned above Qualifiers: Encounter type: initial encounter Qualified Code(s): T81.89XA - Other complications of procedures, not elsewhere classified, initial encounter (4) COPD exacerbation Current Visit: No Status: Acute Assessment and plan: NOt in exacerbation Currently saturations in 90s on RA (5) DVT prophylaxis Current Visit: No Status: Acute Assessment and plan: SubQ heparin (6) DM type 2 (diabetes mellitus, type 2) Current Visit: No Status: Chronic Assessment and plan: Currently not on insulin. Hold off home antidiabetic medications. Start on low dsoe sliding scale insulin. Qualifiers: 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 alf insulin use: with alf use 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 complication status: without complication Qualified Code(s): E11.9 - Type 2 diabetes mellitus without complications; Z79.4 - long term care administrator (current) use of insulin (7) HTN (hypertension) Current Visit: No Status: Chronic Assessment and plan: Blood pressure slightly on the higher side. BP medications wer stopped in the past due to hypotension Continue to hold for now Qualifiers: Hypertension type: essential hypertension Qualified Code(s): I10 - Essential (primary) hypertension (8) Hyperlipidemia Current Visit: No Status: Chronic Assessment and plan: Continue home medications. Qualifiers: Hyperlipidemia type: unspecified Qualified Code(s): E78.5 - Hyperlipidemia, unspecified (9) Insomnia Current Visit: Yes Status: Acute Assessment and plan: Continue zolpidem as needed. Qualifiers: Insomnia type: unspecified Qualified Code(s): G47.00 - Insomnia, unspecified (10) Peripheral neuropathy Current Visit: Yes Status: Acute Assessment and plan: Continue gabapentin Qualifiers: Peripheral neuropathy type: polyneuropathy, unspecified Qualified Code(s): G62.9 - Polyneuropathy, unspecified - Time Spent With Patient Total time spent is greater than 50% in coordination of care (as documented) at patient's floor/unit and/or counseling patient:
[2019-07-10] MEDS ORDERED: ALPRAZolam 1 MG TABLET PO PRN (16:35)
[2019-07-10] MEDS ORDERED: Albuterol 2.5 MG/3 ML NEBULIZER IH PRN (16:35)
[2019-07-10] MEDS ORDERED: Ondansetron ODT 4 MG TAB.RAPDIS SL PRN (16:35)
[2019-07-10] MEDS ORDERED: Nitroglycerin 0.4 MG TAB.SUBL SL PRN (16:35)
[2019-07-10] MEDS: *HR* OxyCODONE Immed Rel 5 MG TABLET PO PRN (16:36)
[2019-07-10] MEDS ORDERED: *HR* Dextrose 50 % in Water (Syg) 50 ML SYRINGE IVP PRN (16:39)
[2019-07-10] MEDS ORDERED: D5% in Water 1,000 ML IVC PRN (16:39)
[2019-07-10] MEDS ORDERED: Dextrose Gel 15 GM/37.5 ML TUBE PO PRN ×2 (16:39)
--- NOTE | 2019-07-10 16:52 | Emergency Department Note ---
Disposition Clinical Impression: Left foot infection, Cellulitis of left foot Sepsis Qualifiers: Sepsis type: sepsis due to unspecified organism Sepsis acute organ dysfunction status: unspecified Qualified Code(s): A41.9 - Sepsis, unspecified organism Disposition: Admitted As Inpatient Time of Disposition: 14:51 General Adult HPI - General Chief complaint: ED General Medical Stated complaint: "needs admitted" Time Seen by Provider: 07/10/19 12:24 Source: patient Mode of arrival: private vehicle Limitations: no limitations - History of Present Illness Pain Scale: 10 - Related Data Home Medications Medication Instructions Recorded Confirmed Albuterol Neb [Proventil Neb] 2.5 mg IH Q6HR PRN 10/02/16 07/10/19 Mv W-Ca/Iron/FA/Lutein/Hrb#179 1 tab PO DAILY 10/02/16 07/10/19 [Sung Multivit For Women Caplet] Nitroglycerin [Nitrostat] 0.4 mg SL Q5M PRN 12/10/17 07/10/19 Cyclobenzaprine [Flexeril] 10 mg PO TID PRN 02/05/18 07/10/19 Ascorbic Acid [Vitamin C] 500 mg PO BID 04/03/19 07/10/19 Atorvastatin Calcium [Lipitor] 20 mg PO DAILY 04/03/19 07/10/19 Beclomethasone Dip 40mcg REDIH 2 puff IH DAILY 04/03/19 07/10/19 [Qvar 40 Mcg Redihaler] Ferrous Sulfate 325 mg PO DAILY 04/03/19 07/10/19 Loratadine [Allergy Relief] 10 mg PO DAILY PRN 04/03/19 07/10/19 Potassium Chloride [K-Tab ER] 20 meq PO DAILY 04/03/19 07/10/19 Gabapentin [Neurontin] 300 mg PO QAM 04/09/19 07/10/19 Albuterol Sulfate [Proventil 2 puff IH Q4-6H PRN 05/03/19 07/10/19 Inhaler] Alprazolam [Xanax] 2 mg PO TID PRN 05/03/19 07/10/19 Aspirin [Adult Aspirin Regimen] 81 mg PO DAILY 05/03/19 07/10/19 Cyanocobalamin (Vitamin B-12) 1,000 mcg PO BID 05/03/19 07/10/19 [Vitamin B-12] Fluticasone Propionate Nasal 2 spray NS BID 05/03/19 07/10/19 [Flonase] Gabapentin [Neurontin] 300 mg PO QPM 05/03/19 07/10/19 Zolpidem [Ambien] 10 mg PO HS PRN 05/03/19 07/10/19 HYDROcodone/Acet 7.5/325 mg [[place] 1 tab PO Q4HR PRN 07/10/19 07/10/19 7.5-325 mg] Previous Rx's Medication Instructions Recorded Cholecalciferol (D-3) [Vitamin D] 1,000 unit PO DAILY #30 tablet 05/25/19 Omeprazole [PriLOSEC] 20 mg PO DAILY capsule. 05/25/19 Ondansetron ODT [Zofran ODT] 4 mg SL Q4HR PRN #12 tab.rapdis 05/25/19 Allergies Allergy/AdvReac Type Severity Reaction Status Date / Time No Known Allergies Allergy Verified 05/03/19 18:37 Constitutional: Denies: fever, chills Cardiovascular: Denies: chest pain, palpitations Respiratory: Denies: dyspnea Gastrointestinal: Denies: abdominal pain, vomiting Genitourinary: Denies: dysuria Musculoskeletal: Reports: other (lfet foot pain and infection) Past Medical History - Past Medical History Medical history: Reports: non-contributory Surgical history: Reports: appendectomy, cholecystectomy, coronary bypass (CABG), herniorrhaphy, hysterectomy Psychiatric history: Reports: depression - Social History Smoking Status: Current every day smoker Smokeless Tobacco Status: No Alcohol use: Reports: none Drug use: Reports: none Physical Exam - General Limitations: no limitations General appearance: alert, in no apparent distress Course Vital Signs Temperature 97.8 F 07/10/19 12:16 Pulse Rate 105 07/10/19 12:16 Respiratory Rate 20 07/10/19 12:16 Blood Pressure 141/87 07/10/19 12:16 O2 Sat by Pulse Oximetry 93 07/10/19 12:16 Temperature 98.0 F 07/10/19 19:34 Pulse Rate 80 07/10/19 19:34 Respiratory Rate 16 07/10/19 19:58 Blood Pressure 177/68 07/10/19 19:34 O2 Sat by Pulse Oximetry 94 07/10/19 19:58 Oxygen Delivery Oxygen Delivery Room Air Medical Decision Making - Lab Data Result diagrams: 07/10/19 12:52 07/10/19 12:52 Lab Results 07/10/19 07/10/19 07/10/19 Range/Units 12:52 12:52 12:52 WBC 11.7 H (4.3-11.1) K/mcL RBC 4.55 (3.82-4.97) M/mcL Hgb 12.7 (11.5-15.4) g/dL Hct 39.0 (35.3-44.9) % MCV 85.7 (83.0-100.0) fL MCH 27.9 L (28.0-33.3) pg MCHC 32.6 (31.6-35.5) g/dL RDW 13.2 (11.5-14.5) % Plt Count 311 (140-400) K/mcL MPV 11.3 (9.4-12.4) fL Immature Gran % 0.4 (0-4) % Seg Neutrophils % 77.5 % Lymphocytes % 16.4 % Monocytes % 4.5 % Eosinophils % 0.8 % Basophils % 0.4 % Neutrophils # 9.0 H (1.6-8.9) K/mcL Lymphocytes # 1.9 (0.6-4.6) K/mcL Monocytes # 0.5 (0.0-1.3) K/mcL Eosinophils # 0.1 (0.0-0.6) K/mcL Basophils # 0.1 (0.0-0.2) K/mcL ESR 75 H (0-15) mm/hr Sodium 141 (136-145) mEq/L Potassium 3.5 (3.5-5.1) mEq/L Chloride 104 (98-107) mEq/L Carbon Dioxide 29 (23-29) mEq/L BUN 13 (8-23) mg/dL Creatinine 0.60 (0.60-1.20) mg/dL Est GFR ( Amer) > 60 (> 60) Est GFR (Non-Af Amer) > 60 (> 60) BUN/Creatinine Ratio 22 (6-26) Glucose 292 H (70-105) mg/dL Calculated Osmolality 303 H (280-300) Lactic Acid (0.5-2.2) mmol/L Calcium 9.3 (8.6-10.3) mg/dL C-Reactive Protein 37 H (Less than 10) mg/L 07/10/19 Range/Units 12:52 WBC (4.3-11.1) K/mcL RBC (3.82-4.97) M/mcL Hgb (11.5-15.4) g/dL Hct (35.3-44.9) % MCV (83.0-100.0) fL MCH (28.0-33.3) pg MCHC (31.6-35.5) g/dL RDW (11.5-14.5) % Plt Count (140-400) K/mcL MPV (9.4-12.4) fL Immature Gran % (0-4) % Seg Neutrophils % % Lymphocytes % % Monocytes % % Eosinophils % % Basophils % % Neutrophils # (1.6-8.9) K/mcL Lymphocytes # (0.6-4.6) K/mcL Monocytes # (0.0-1.3) K/mcL Eosinophils # (0.0-0.6) K/mcL Basophils # (0.0-0.2) K/mcL ESR (0-15) mm/hr Sodium (136-145) mEq/L Potassium (3.5-5.1) mEq/L Chloride (98-107) mEq/L Carbon Dioxide (23-29) mEq/L BUN (8-23) mg/dL Creatinine (0.60-1.20) mg/dL Est GFR ( Amer) (> 60) Est GFR (Non-Af Amer) (> 60) BUN/Creatinine Ratio (6-26) Glucose (70-105) mg/dL Calculated Osmolality (280-300) Lactic Acid 2.1 (0.5-2.2) mmol/L Calcium (8.6-10.3) mg/dL C-Reactive Protein (Less than 10) mg/L Attestation Statement - Attestation Attestation: I examined this patient and my medical decision-making was reviewed with the Resident Physician. I agree with the documented findings, disposition and treatment plan as described except to the extent set forth below. Patient is a 69-year-old female that presents to emergency department with chief complaint of left foot wound. The patient reports she has been getting localized wound care but it continues to get worse and is concern for infection due to the wound cultures. Physical exam patient is awake alert no acute distress there is a large ulcerating lesion on the dorsal aspect of the left foot Medical decision management the patient was started on IV antibiotics and emergency Department imaging was obtained and the patient will be admitted to the hospital for surgical management
[2019-07-10] MEDS: Gabapentin 300 MG CAPSULE PO SCH (17:53)
[2019-07-10] MEDS: *HR* Heparin 5,000 UNIT/ML VIAL SQ SCH (17:53)
[2019-07-10] MEDS ORDERED: Ascorbic Acid 500 MG TABLET PO SCH (21:00)
[2019-07-10] MEDS ORDERED: Fluticasone Propionate Nasal 50 MCG/SPRAY BOTTLE NS SCH (21:00)
[2019-07-10] MEDS ORDERED: Cyanocobalamin (B-12) 1,000 MCG TABLET PO SCH (21:00)
[2019-07-10] MEDS: Piperacillin/Tazobactam 3.375 GM in 0.9 % Sodium Chloride Mini Bag 100 ML IVPB SCH (22:19)
[2019-07-11 04:32] LABS: Basophils % 0.5 %; Eosinophils # 0.2 K/mcL (0.0-0.6); Eosinophils % 3.6 %; Hematocrit 33.5 % (35.3-44.9); Immature Granulocytes % 0.3 % (0-4); Lymphocytes % 30.7 %; Mean Corpuscular HGB Conc 32.2 g/dL (31.6-35.5); Mean Corpuscular Hemoglobin 28.3 pg (28.0-33.3); Mean Corpuscular Volume 87.7 fL (83.0-100.0); Mean Platelet Volume 11.1 fL (9.4-12.4); Monocytes # 0.4 K/mcL (0.0-1.3); Monocytes % 6.5 %; Neutrophils # 3.7 K/mcL (1.6-8.9); Platelet Count 244 K/mcL (140-400); Red Blood Count 3.82 M/mcL (3.82-4.97); Red Cell Distribution Width 13.2 % (11.5-14.5); Segmented Neutrophils % 58.4 %; White Blood Count 6.4 K/mcL (4.3-11.1)
[2019-07-11 04:38] LABS: Hemoglobin 10.8 g/dL (11.5-15.4)
[2019-07-11 04:52] LABS: BUN/Creatinine Ratio 20 (6-26); Blood Urea Nitrogen 10 mg/dL (8-23); Calcium 8.7 mg/dL (8.6-10.3); Carbon Dioxide 27 mEq/L (23-29); Chloride 106 mEq/L (98-107); Glucose 124 mg/dL (70-105); Osmolality,Calculated 296 (280-300); Potassium 3.3 mEq/L (3.5-5.1); Sodium 143 mEq/L (136-145); eGFR For African Americans > 60 (> 60); eGFR For Non-African Americans > 60 (> 60)
[2019-07-11] MEDS: Piperacillin/Tazobactam 3.375 GM in 0.9 % Sodium Chloride Mini Bag 100 ML IVPB SCH ×3 (05:36→20:05)
[2019-07-11] MEDS: *HR* Heparin 5,000 UNIT/ML VIAL SQ SCH ×2 (05:39→19:57)
[2019-07-11] MEDS: *HR* OxyCODONE Immed Rel 5 MG TABLET PO PRN ×2 (05:45→19:56)
[2019-07-11] MEDS ORDERED: Insulin LISPRO 300 UNITS/3 ML VIAL SQ SCH (07:30)
[2019-07-11] MEDS ORDERED: Cholecalciferol (D-3) 1,000 UNIT (25MCG) TABLET PO SCH (09:00)
[2019-07-11] MEDS ORDERED: Gabapentin 300 MG CAPSULE PO SCH (09:00)
[2019-07-11] MEDS ORDERED: Aspirin Enteric Coated 81 MG Tablet PO SCH (09:00)
[2019-07-11] MEDS: Gabapentin 300 MG CAPSULE PO SCH ×2 (09:15→19:57)
--- NOTE | 2019-07-11 10:42 | Internal Med Progress Note ---
Hospitalist Progress Note - Encounter Date of Encounter: 07/11/19 Time of Encounter: 08:15 - Subjective Interval History: Patient seen at bedside. Denies chest pain, shortness of breath, palpitations. Denies fever, chills, rigors. Mentions improvemt in the pain. Currently nothing by mouth for the procedure. No acute event overnight. - Exam Vitals: Temp Pulse Resp BP Pulse Ox 97.9 F 70 12 131/79 91 07/11/19 06:58 07/11/19 06:58 07/11/19 07:59 07/11/19 06:58 07/11/19 07:59 Exam: General: Alert and oriented, no physical distress, able to follow commands. HEENT: No thyromegaly, no lymphadenopathy, no discharge. Eyes: No discharge. Normal conjuctiva, no icterus Respiratory: Normal vesicular breathing, no added sounds, breathing equal in both sides. CVS: Normal heart sounds, no murmurs, regular rhthm, no edema Extremities: No peripheral edema, peripheral pulses intact. Left foot dressed. Lymph nodes: No lymphadenopathy Gastrointestinal: Soft, nontender abdomen, normal abdominal sounds. No distention noted. Genitourinary: No paravertebral tenderness. Skin: No rash, ulcers or wound. Neurological: Alert and oriented. No focal deficits. Cranial nerves II-XII intact. - Assessment and Plan (1) Cellulitis of left foot Current Visit: Yes Status: Acute Assessment and Plan: Cellulitis of the left foot. Ulceration noted on the left calcaneous, left lateral foot, and left dorsal foot WBC count improved to 6.4. SIRS of 2 with leucocytosis and tachycardai at presentaion. Afebrile currently. ESR of 75, CRP of 27. 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 CT scan negative for osteomyelitis. Podiatry on board. Patient currently nothing by mouth Debridement today Continue the patient on IV vancomycin and IV Zosyn at this point. May need to consult ID. (2) Left foot infection Current Visit: Yes Status: Acute Assessment and Plan: Plan mentioned above (3) Non-healing surgical wound Current Visit: Yes Status: Acute Assessment and Plan: Plan mentoned above (4) COPD exacerbation Current Visit: No Status: Acute Assessment and Plan: NOt in exacerbation Currently saturations in 90s on RA Continue home medications (5) DVT prophylaxis Current Visit: No Status: Acute Assessment and Plan: SubQ heparin (6) DM type 2 (diabetes mellitus, type 2) Current Visit: No Status: Chronic Assessment and Plan: Currently not on insulin. Hold off home antidiabetic medications. Blood glucose levels within reasonable limits. Continue on low dsoe sliding scale insulin. (7) HTN (hypertension) Current Visit: No Status: Chronic Assessment and Plan: Blood pressure within reasonable limits. It was high yesterday likely because of the pain. Continue to monitor (8) Hyperlipidemia Current Visit: No Status: Chronic Assessment and Plan: Continue home medications. (9) Insomnia Current Visit: Yes Status: Acute Assessment and Plan: Continue zolpidem as needed. (10) Peripheral neuropathy Current Visit: Yes Status: Acute Assessment and Plan: Continue gabapentin (11) Sepsis Current Visit: Yes Status: Acute Assessment and Plan: 2 SIRS wih the tachycardai and leucocytosi at presentaion Blood culutres pending Plan mentioned above - Time Spent with Patient Total time spent is greater than 50% in coordination of care (as documented) at patient's floor/unit and/or counseling patient: Internal Medicine: Result - Labs CBC & Chem 7: 07/11/19 03:56 07/11/19 03:56 Labs: Short CBC 07/10/19 07/11/19 Range/Units 12:52 03:56 WBC 11.7 H 6.4 (4.3-11.1) K/mcL Hgb 12.7 10.8 L D (11.5-15.4) g/dL Hct 39.0 33.5 L (35.3-44.9) % Plt Count 311 244 (140-400) K/mcL Neutrophils # 9.0 H 3.7 (1.6-8.9) K/mcL BMP 07/10/19 07/11/19 12:52 03:56 Sodium 141 143 Potassium 3.5 3.3 L Chloride 104 106 Carbon Dioxide 29 27 BUN 13 10 Creatinine 0.60 0.51 L Glucose 292 H 124 H Calcium 9.3 8.7 - Impressions Impressions Foot CT 07/10/19 12:28 IMPRESSION: Postsurgical changes from prior 1st TMT joint arthrodesis without significant osseous fusion. New from the prior study are multiple foci of air about the joint and hardware with overlying soft tissue irregularity concerning for infection. No well-defined fluid collection is seen. D/ / David Sandoval / David Sandoval Interpreting Provider: David Sandoval Consult Discharge Plan - Plan Referrals: Radha Chinchilla, LOW VOLTAGE ELECTRICIAN [Primary Care Provider] - (3) Non-healing surgical wound Qualifiers: Encounter type: initial encounter Qualified Code(s): T81.89XA - Other complications of procedures, not elsewhere classified, initial encounter (6) DM type 2 (diabetes mellitus, type 2) Qualifiers: 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 vermin exterminator insulin use: with vermin exterminator use 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 complication status: without complication Qualified Code(s): E11.9 - Type 2 diabetes mellitus without complications; Z79.4 - assistant terminal manager (current) use of insulin (7) HTN (hypertension) Qualifiers: Hypertension type: essential hypertension Qualified Code(s): I10 - Essential (primary) hypertension (8) Hyperlipidemia Qualifiers: Hyperlipidemia type: unspecified Qualified Code(s): E78.5 - Hyperlipidemia, unspecified (9) Insomnia Qualifiers: Insomnia type: unspecified Qualified Code(s): G47.00 - Insomnia, unspecified (10) Peripheral neuropathy Qualifiers: Peripheral neuropathy type: polyneuropathy, unspecified Qualified Code(s): G62.9 - Polyneuropathy, unspecified (11) Sepsis Qualifiers: Sepsis type: sepsis due to unspecified organism Sepsis acute organ dysfunction status: unspecified Qualified Code(s): A41.9 - Sepsis, unspecified organism
[2019-07-11] MEDS ORDERED: Vancomycin 1,000 MG, 0.9 % Sodium Chloride 1,000 ML IR ONE (13:25)
[2019-07-11] MEDS ORDERED: Dexamethasone 4 MG/ML VIAL ONE (14:16)
[2019-07-11] MEDS ORDERED: Ondansetron 4 MG/2 ML VIAL ONE (14:16)
[2019-07-11] MEDS ORDERED: *HR* FentaNYL (PF) 100 MCG/2 ML VIAL ONE (14:16)
[2019-07-11] MEDS ORDERED: Lidocaine -MPF 2% 2 ML VIAL ONE (14:16)
[2019-07-11] MEDS ORDERED: *HR* Propofol 200 MG/20 ML VIAL IVP ONE (14:17)
--- NOTE | 2019-07-11 14:40 | Anesthesia Evaluation PreOp ---
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 TECHNICIAN History: Denies Any Significant HX Other Medical History: Diabetes Type II, GERD Anesthesia History: No Prior Anesthetic Complications, Past Anesthesia ( appendectomy, cholecystectomy, coronary bypass (CABG), herniorrhaphy, hysterectomy) Alcohol Use: none Drug use: none Medications and Allergies Albuterol Neb [Proventil Neb] 2.5 mg IH Q6HR PRN 10/02/16 [History] Mv W-Ca/Iron/FA/Lutein/Hrb#179 [Sung Multivit For Women Caplet] 1 tab PO DAILY 10/02/16 [History] Nitroglycerin [Nitrostat] 0.4 mg SL Q5M PRN 12/10/17 [History] Cyclobenzaprine [Flexeril] 10 mg PO TID PRN 02/05/18 [History] Ascorbic Acid [Vitamin C] 500 mg PO BID 04/03/19 [History] Atorvastatin Calcium [Lipitor] 20 mg PO DAILY 04/03/19 [History] Beclomethasone Dip 40mcg REDIH [Qvar 40 Mcg Redihaler] 2 puff IH DAILY 04/03/19 [History] Ferrous Sulfate 325 mg PO DAILY 04/03/19 [History] Loratadine [Allergy Relief] 10 mg PO DAILY PRN 04/03/19 [History] Potassium Chloride [K-Tab ER] 20 meq PO DAILY 04/03/19 [History] Gabapentin [Neurontin] 300 mg PO QAM 04/09/19 [History] Albuterol Sulfate [Proventil Inhaler] 2 puff IH Q4-6H PRN 05/03/19 [History] Alprazolam [Xanax] 2 mg PO TID PRN 05/03/19 [History] Aspirin [Adult Aspirin Regimen] 81 mg PO DAILY 05/03/19 [History] Cyanocobalamin (Vitamin B-12) [Vitamin B-12] 1,000 mcg PO BID 05/03/19 [History] Fluticasone Propionate Nasal [Flonase] 2 spray NS BID 05/03/19 [History] Gabapentin [Neurontin] 300 mg PO QPM 05/03/19 [History] Zolpidem [Ambien] 10 mg PO HS PRN 05/03/19 [History] Cholecalciferol (D-3) [Vitamin D] 1,000 unit PO DAILY #30 tablet 05/25/19 [Rx] Omeprazole [PriLOSEC] 20 mg PO DAILY capsule. 05/25/19 [Rx] Ondansetron ODT [Zofran ODT] 4 mg SL Q4HR PRN #12 tab.[email or web address] 05/25/19 [Rx] HYDROcodone/Acet 7.5/325 mg [[place] 7.5-325 mg] 1 tab PO Q4HR PRN 07/10/19 [History] Allergy/AdvReac Type Severity Reaction Status Date / Time No Known Allergies Allergy Verified 05/03/19 18:37 - Meds/Allergy Pre-op Review Medications Reviewed: Yes Allergies Reviewed: Yes Beta Blockers on Current Med List: No Anesthesia Results - Labs 07/11/19 03:56 07/11/19 03:56 - Imaging EKG: report reviewed Additional studies: 04/2019 echocardiogram Impressions: LVEF 50-55%. Mild left ventricular diastolic dysfunction. Normal right ventricular structure and function. Mild tricuspid regurgitation. No pulmonary hypertension. Anesthesia Exam Vital Signs/O2 Sat/Glucose, Most Recent Temp Pulse Resp BP Pulse Ox 97.9 F 74 18 150/80 92 07/11/19 12:00 07/11/19 12:00 07/11/19 12:00 07/11/19 12:00 07/11/19 12:00 Blood Glucose* 107 Weight: 77 kg NPO (# of Hours): > 8 hr - HEENT Pupil (Motor): Pupils equal Mallampati: II Teeth: Missing - WILDLIFE TECHNICIAN LOC: Oriented - Cardiac Rhythm: Regular Murmur: None - Pulmonary Breath Sounds: bilateral Clear Respiratory Effort: Symmetrical Anesthesia Assess/Plan ASA Score: 3 Level of consciousness: Cooperative, Oriented Anesthetic Plan: General Monitoring Plan: Standard Monitors Recovery Plan: PACU
[2019-07-11] MEDS ORDERED: Lidocaine 1% 20 ML MDV ONE (14:43)
[2019-07-11] MEDS ORDERED: Bupivacaine/EPI 1:200k 0.25%PF 30 ML VIAL ONE (14:43)
[2019-07-11] MEDS ORDERED: *HR* Promethazine 25 MG/ML VIAL IVP PRN (14:46)
[2019-07-11] MEDS ORDERED: Ondansetron 4 MG/2 ML VIAL IVP ONE ×2 (14:46→17:29)
[2019-07-11] MEDS ORDERED: *HR* Labetalol 20 MG/4 ML SYRINGE IVP PRN (14:46)
[2019-07-11] MEDS ORDERED: Albuterol 2.5 MG/3 ML NEBULIZER IH ONE ×2 (14:46→17:29)
[2019-07-11] MEDS ORDERED: *HR* OxyCODONE Immed Rel 5 MG TABLET PO PRN (14:46)
[2019-07-11] MEDS ORDERED: Vancomycin 1,000 MG VIAL ONE (15:12)
[2019-07-11] MEDS ORDERED: Calcium Gluconate 1,000 MG/10 ML VIAL ONE (15:14)
--- NOTE | 2019-07-11 16:09 | Event Note ---
Date of Encounter: 07/11/19 Time of Encounter: 16:07 The patient was seen in formal consult in my clinic yesterday. She suffered a complex foot fracture requiring open reduction and internal fixation in April 2019. The patient has gone on to have difficulty with wound healing with necrosis of the skin and development of a heel ulcer. She has had inconsistent lower extremity noninvasive testing. She also has multiple risk factors for vascular disease that include coronary disease with status post open heart bypass grafting, diabetes, hypertension, hyperlipidemia, and tobacco abuse. Because of the depth and severity of her wounds I will perform an angiogram with possible left lower extremity endovascular intervention tomorrow. Patient is to have podiatric surgery today with Dr. Nicholson.
--- NOTE | 2019-07-11 16:22 | Operative Note ---
Date of procedure: 07/11/19 Pre-op diagnosis: left foot multiple ulcerations, exposed hardware Post-op diagnosis: same Procedure: left foot excisional debridement of wounds dorsal foot 7reb8mny1.5cm, heel 0gmf1rqo7.3cm, distal foot 5uwp1gbq6.3cm and 0.5igk5odh8.3cm and submet 5 1.9cmx 1cmx0.3cm removal of hardware left foot application PuraPlygraft application of PRP Implants: none Complications: none Anesthesia: GETA Local Anesthetics: 1% Lidocaine HCL SubQ (cc) Surgeon: Caio Nicholson Was there an catalog library assistant present: No Estimated blood loss (cc): 20 Specimen: wound culture left foot Condition: stable Disposition: PACU Procedure in Detail: Indications: 69-year-old uncontrolled diabetic female with multiple wounds left foot, hardware from previous fracture ORIF. Patient had been evaluated by va scular. Nature of the procedure, risks versus benefits potential complications consequences of surgery and her condition discussed at length. No guarantees made as to the outcome of any procedure or her ability to heal wounds. Patient is a smoker and had been counseled on smoking cessation. Patient was placed on the operating room table in the supine position. 1% lidocaine plain was injected into the patient's left foot. The left foot was scrubbed prepped and draped in the usual sterile fashion. No tourniquet was inflated during the procedure. The patient's blood was obtained by the perfusion team, spun and int PRP. The following procedures then began. Removal of hardware. Attention was directed to the patient's dorsal aspect of the left foot where the dorsal foot wound was present and blunt dissection was carried out down to the level of the hardware. The dori were identified which fixated the metatarsal fractures. The dori and 2 and 3 and 4 metatarsals was removed without incident. Stress of the original fracture zone did not appear to have motion. Attention was then directed to the first tarsometatarsal joint which had been fixated with a plate and a screw which were also removed without incident. There was some motion present at the first tarsometatarsal joint. Excisional debridement of wounds and application of graft. Some fibrous and some sloughing tissue was present around the wound on the dorsal foot. This tissue was excised. Cultures were taken and sent to microbiology. The Misonex debridement wand was also utilized. The wound was excisionally debrided into the level of tendon and tendon sheath. There was bleeding tissue present at the wound site. The wound was thoroughly irrigated with normal sterile saline which contained vancomycin. There was no purulence identified. There was no deep necrotic tissue. There is bone exposed in the wound. The posterior heel wound was also debrided into subcutaneous tissue and the other wounds in the forefoot were also debrided excisionally into subcutaneous tissue using the Misonex into subcutaneous tissue. A PuraPly 6 x 9 cm graft was cut and applied to the wounds on the dorsal foot and forefoot. PRP was applied to all of the wounds. A wound VAC was then applied to the dorsal foot wound after covering the graft with Adaptic. All other wound sites were covered with Adaptic and 4 x 4 gauze. The wound VAC was set on 125 mmHg continuous and excellent seal was present. Patient will return to the floor and continue antibiotics.
[2019-07-11] MEDS: *HR* HYDROmorphone (PF) 1 MG/ML SYRINGE IVP PRN ×2 (16:35→16:42)
--- NOTE | 2019-07-11 17:03 | Anesthesia Evaluation Post Op ---
Date of Encounter: 07/11/19 Time of Encounter: 17:01 - Vital Signs Vital Signs: Vital Signs/O2 Sat, Most Current Temp Pulse Resp BP Pulse Ox 99.5 F 86 16 164/81 92 07/11/19 16:48 07/11/19 16:48 07/11/19 16:48 07/11/19 16:48 07/11/19 16:48 - Lungs Lungs: Clear Ascult./Percussion - Airway Airway: Non-obstructed - Cardiovascular Regular Rate - Mental Status Mental Status: Alert & Oriented, Answers Appropriately - Pain Pain Scale: 7 Pain Scale used: Numeric (1 - 10) - Nausea Vomiting Nausea Vomiting: Not Present - Hydration Hydration: NPO, Has not voided - Discharge PostOp Status: Transfer Patient to floor
[2019-07-11] MEDS ORDERED: *HR* Dextrose 50 % in Water (Syg) 50 ML SYRINGE IVP PRN (17:29)
[2019-07-11] MEDS ORDERED: Ondansetron 4 MG/2 ML VIAL IVP PRN (17:29)
[2019-07-11] MEDS ORDERED: Naloxone 0.4 MG/ML INJ IVP PRN (17:29)
[2019-07-11] MEDS ORDERED: D5% in Water 1,000 ML IVC PRN (17:29)
[2019-07-11] MEDS ORDERED: Acetaminophen 325 MG TABLET PO PRN (17:29)
[2019-07-11] MEDS ORDERED: Nitroglycerin 0.4 MG TAB.SUBL SL PRN (17:29)
[2019-07-11] MEDS ORDERED: Dextrose Gel 15 GM/37.5 ML TUBE PO PRN ×2 (17:29)
[2019-07-11] MEDS ORDERED: Albuterol 2.5 MG/3 ML NEBULIZER IH PRN (17:29)
[2019-07-11] MEDS: Cyanocobalamin (B-12) 1,000 MCG TABLET PO SCH (19:57)
[2019-07-11] MEDS: Ascorbic Acid 500 MG TABLET PO SCH (19:57)
[2019-07-11] MEDS: Fluticasone Propionate Nasal 50 MCG/SPRAY BOTTLE NS SCH (20:02)
[2019-07-12] MEDS: *HR* OxyCODONE Immed Rel 5 MG TABLET PO PRN ×3 (00:49→23:41)
[2019-07-12] MEDS: *HR* HYDROcodone/Acet 5/325 mg TABLET PO PRN ×3 (02:16→15:10)
[2019-07-12] MEDS: *HR* Heparin 5,000 UNIT/ML VIAL SQ SCH ×2 (05:06→17:09)
[2019-07-12] MEDS: Piperacillin/Tazobactam 3.375 GM in 0.9 % Sodium Chloride Mini Bag 100 ML IVPB SCH ×3 (05:07→23:41)
[2019-07-12] MEDS: Fluticasone Propionate Nasal 50 MCG/SPRAY BOTTLE NS SCH ×2 (08:23→23:40)
[2019-07-12] MEDS: Gabapentin 300 MG CAPSULE PO SCH (08:24)
[2019-07-12] MEDS: Cholecalciferol (D-3) 1,000 UNIT (25MCG) TABLET PO SCH (08:25)
[2019-07-12] MEDS: Cyanocobalamin (B-12) 1,000 MCG TABLET PO SCH ×2 (08:27→21:39)
[2019-07-12] MEDS: Ascorbic Acid 500 MG TABLET PO SCH ×2 (08:28→21:38)
[2019-07-12] MEDS: Insulin LISPRO 300 UNITS/3 ML VIAL SQ SCH ×3 (08:28→17:27)
[2019-07-12] MEDS: Aspirin Enteric Coated 81 MG Tablet PO SCH (08:28)
[2019-07-12 09:58] LABS: White Blood Count 8.6 K/mcL (4.3-11.1)
[2019-07-12 09:59] LABS: Basophils % 0.3 %; Hematocrit 35.1 % (35.3-44.9); Hemoglobin 11.1 g/dL (11.5-15.4); Immature Granulocytes % 0.6 % (0-4); Lymphocytes # 1.5 K/mcL (0.6-4.6); Lymphocytes % 17.8 %; Mean Corpuscular HGB Conc 31.6 g/dL (31.6-35.5); Mean Corpuscular Hemoglobin 27.5 pg (28.0-33.3); Mean Corpuscular Volume 87.1 fL (83.0-100.0); Mean Platelet Volume 11.4 fL (9.4-12.4); Monocytes # 0.6 K/mcL (0.0-1.3); Monocytes % 7.3 %; Neutrophils # 6.4 K/mcL (1.6-8.9); Platelet Count 263 K/mcL (140-400); Red Blood Count 4.03 M/mcL (3.82-4.97); Red Cell Distribution Width 12.8 % (11.5-14.5)
[2019-07-12 10:26] LABS: BUN/Creatinine Ratio 21 (6-26); Blood Urea Nitrogen 11 mg/dL (8-23); Calcium 9.3 mg/dL (8.6-10.3); Carbon Dioxide 31 mEq/L (23-29); Chloride 100 mEq/L (98-107); Glucose 143 mg/dL (70-105); Osmolality,Calculated 292 (280-300); Potassium 4.7 mEq/L (3.5-5.1); Sodium 140 mEq/L (136-145); eGFR For African Americans > 60 (> 60); eGFR For Non-African Americans > 60 (> 60)
[2019-07-12] MEDS ORDERED: *HR* Heparin 10,000 UNIT/10 ML VIAL ONE (11:33)
[2019-07-12] MEDS ORDERED: Isovue-300 150 ML INFUS..BTL ONE (11:33)
[2019-07-12] MEDS ORDERED: 0.9 % Sodium Chloride 1,000 ML ONE ×2 (11:33→11:46)
--- NOTE | 2019-07-12 11:37 | Pre-Sedation Evaluation ---
Pre-sedation evaluation - Pre-sedation checklist Date of procedure: 07/11/19 Procedure: stone extraction Recent Vitals: Last Vital Signs Temp 98.4 F 07/12/19 11:18 Pulse 69 07/12/19 11:18 Resp 16 07/12/19 11:18 BP 113/63 07/12/19 11:18 Pulse Ox 92 07/12/19 11:18 H&P (including ROS) documented in medical record: Yes Previous reaction to sedatives/anesthetics: No Dietary Status: NPO after Midnight Dentition: No loose teeth or bridges ASA Classification *see protocol: CLASS III-Severe systemic disease Plan of Care: Pt appropriate candidate for procedure/moderate/conscious sedation, Risks/benefits of procedure/sedation discussed w/ patient/family
[2019-07-12] MEDS ORDERED: *HR* FentaNYL (PF) 100 MCG/2 ML VIAL ONE (11:56)
[2019-07-12] MEDS ORDERED: *HR* Midazolam HCl 2 MG/2 ML VIAL ONE (11:56)
--- NOTE | 2019-07-12 11:57 | Internal Med Progress Note ---
Hospitalist Progress Note - Encounter Date of Encounter: 07/12/19 Time of Encounter: 09:45 - Subjective Interval History: Patient was seen at bedside. Got the debridement yesterday. Pain is currently well controlled. Denies fever, chills, rigors. Denies any chest pain or shortness of breath. Currently doing well. Plan for lower extremity angiograph y today. No other overnight events. - Exam Vitals: Temp Pulse Resp BP Pulse Ox 98.4 F 69 16 113/63 92 07/12/19 11:18 07/12/19 11:18 07/12/19 11:18 07/12/19 11:18 07/12/19 11:18 Exam: General: Alert and oriented, no physical distress, able to follow commands. HEENT: No thyromegaly, no lymphadenopathy, no discharge. Eyes: No discharge. Normal conjuctiva, no icterus Respiratory: Normal vesicular breathing, no added sounds, breathing equal in both sides. CVS: Normal heart sounds, no murmurs, regular rhthm, no edema Extremities: No peripheral edema, peripheral pulses intact. Left foot dressed. Lymph nodes: No lymphadenopathy Gastrointestinal: Soft, nontender abdomen, normal abdominal sounds. No distention noted. Genitourinary: No paravertebral tenderness. Skin: No rash, ulcers or wound. Neurological: Alert and oriented. No focal deficits. Cranial nerves II-XII intact. - Assessment and Plan (1) Cellulitis of left foot Current Visit: Yes Status: Acute Assessment and Plan: Cellulitis of the left foot. Ulceration noted on the left calcaneous, left lateral foot, and left dorsal foot WBC count improved. SIRS of 2 with leucocytosis and tachycardai at presentaion. Afebrile currently. ESR of 75, CRP of 27. 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 CT scan negative for osteomyelitis. Podiatry on board. The patient had left foot excisional debridement of wounds dorsal foot, removal of hardware left foot, application PuraPlygraft, application of PRP Continue the patient on IV vancomycin and IV Zosyn at this point. ID consult. (2) Left foot infection Current Visit: Yes Status: Acute Assessment and Plan: Plan mentioned above (3) Non-healing surgical wound Current Visit: Yes Status: Acute Assessment and Plan: Plan mentoned above Plan for left lower extremity angiogram today with possible endovascular intervention. Vascular surgery on board. (4) COPD exacerbation Current Visit: No Status: Acute Assessment and Plan: NOt in exacerbation Currently saturations in 90s on RA Continue home medications (5) DVT prophylaxis Current Visit: No Status: Acute Assessment and Plan: SubQ heparin (6) DM type 2 (diabetes mellitus, type 2) Current Visit: No Status: Chronic Assessment and Plan: Currently not on insulin. Hold off home antidiabetic medications. Blood glucose levels within reasonable limits. Continue on low dsoe sliding scale insulin. (7) HTN (hypertension) Current Visit: No Status: Chronic Assessment and Plan: Blood pressure within reasonable limits. Continue to monitor (8) Insomnia Current Visit: Yes Status: Acute (9) Sepsis Current Visit: Yes Status: Acute Assessment and Plan: 2 SIRS wih the tachycardai and leucocytosi at presentaion Blood culutres pending Plan mentioned above - Time Spent with Patient Total time spent is greater than 50% in coordination of care (as documented) at patient's floor/unit and/or counseling patient: Internal Medicine: Result - Labs CBC & Chem 7: 07/12/19 09:08 07/12/19 09:08 Labs: Short CBC 07/12/19 Range/Units 09:08 WBC 8.6 (4.3-11.1) K/mcL Hgb 11.1 L (11.5-15.4) g/dL Hct 35.1 L (35.3-44.9) % Plt Count 263 (140-400) K/mcL Neutrophils # 6.4 (1.6-8.9) K/mcL BMP 07/12/19 09:08 Sodium 140 Potassium 4.7 Chloride 100 Carbon Dioxide 31 H BUN 11 Creatinine 0.52 L Glucose 143 H Calcium 9.3 Consult Discharge Plan - Plan Referrals: Radha Chinchilla, SHIPPING TECHNICIAN [Primary Care Provider] - (3) Non-healing surgical wound Qualifiers: Encounter type: initial encounter Qualified Code(s): T81.89XA - Other complications of procedures, not elsewhere classified, initial encounter (6) DM type 2 (diabetes mellitus, type 2) Qualifiers: 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 salvage determiner insulin use: with salvage determiner use 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 complication status: without complication Qualified Code(s): E11.9 - Type 2 diabetes mellitus without complications; Z79.4 - jail (current) use of insulin (7) HTN (hypertension) Qualifiers: Hypertension type: essential hypertension Qualified Code(s): I10 - Essential (primary) hypertension (8) Insomnia Qualifiers: Insomnia type: unspecified Qualified Code(s): G47.00 - Insomnia, unspecified (9) Sepsis Qualifiers: Sepsis type: sepsis due to unspecified organism Sepsis acute organ dysfunction status: unspecified Qualified Code(s): A41.9 - Sepsis, unspecified organism
--- NOTE | 2019-07-12 13:44 | Procedure Note ---
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
--- NOTE | 2019-07-12 13:48 | Invasive Diagnostic Lab Proc ---
Name: Flower Finnegan Date of Study: 07/12/2019 Date: 1950 Ht: 163.0 in Medical Record#: [id number] Age: 69 Wt: 78 lb Gender: Female BSA: 1.84 Order #: [id number] BMI: 29.36 Physicians Performing MD: Oracio Agee MD, FACS Referring MD: Referring MD: Staff Name Position Time In Darius Trevizo RN Monitor Kody Chaves RT (R) Scrub Dallin Marin RN Marble Machine Tender Fani Han RT (R) Monitor Darius Trevizo RN Marble Machine Tender Indications Non-healing Ulcer Procedures Performed AORTOGRAPHY, ABDOMINAL S&I AORTOGRAPHY EXT Bilat S&I Pre-Procedure Checklist Informed consent is complete signed and on chart. H&P is on chart. ID band is on and ID verified with patient. Patient NPO for procedure The procedure was described for the patient and questions were answered. Blood Pressure: 146/76 ECG is on chart. Rhythm: NSR Plan of Care Patient will tolerate the procedure without complications. Adequate level of comfort will be maintained. Hemodynamics will remain stable Patient will recover from procedure without complications. Respiratory function will be maintained. Cardiac rhythm will remain stable. Patient temperature will be maintained. Patient and/or family have verbalized understanding of the procedure. Patient Education Chief Complaint/Reason for Test: Peripheral angiogram Developmental Category: Geriatric (65+ years) Learning Barriers: None Education Needs: Procedure Education Method: Verbal Information Taught: Peripheral angiogram Educational Evaluation: Able to repeat information Intravenous Access Time IV Size Location DC'd Fluid/Drip Rate Units RN 12:18 20g 1 /" Patent On Arrival Rt Hand 0.9NaCl ml/hr Allergies No Known Allergies Vital Signs Time BP Systolic BP Diastolic HR O2 Sats ASA 12:15 PM 12:18 PM 146 76 75 93 12:23 PM 160 78 76 95 12:28 PM 150 70 69 97 12:33 PM 142 77 74 96 12:38 PM 150 75 75 96 12:43 PM 150 72 75 95 12:48 PM 150 73 73 98 12:53 PM 146 79 75 97 12:59 PM 163 85 81 95 01:03 PM 159 100 83 96 01:08 PM 155 77 74 88 01:13 PM 146 76 80 88 01:19 PM 173 96 90 98 01:24 PM 180 105 94 95 01:28 PM 172 140 95 99 01:33 PM 180 89 84 95 01:39 PM 168 90 82 93 Procedure Medications Time Medication Dose Units Method Route 12:18 PM Oxygen 2 L/min nasal cannula 12:20 PM Versed 1 mg Intravenous 12:20 PM Fentanyl 50 mcg Intravenous 12:26 PM Lidocaine 2% 10 ml Subcutaneous 12:59 PM Versed 1 mg Intravenous 12:59 PM Fentanyl 50 mcg Intravenous 01:13 PM Oxygen 4 L/min nasal cannula ASA Classification: CLASS III- Severe systemic disease (i.e. prior AMI, diabetes with vascular complications, morbid obesity) Reny Score Preprocedure Postprocedure Activity 2- Moves 4 extremities sustained head lift Activity 2- Moves 4 extremities sustained head lift Circulation 2- SBP +/= 20 points of pre-anesthetic level Circulation 2- SBP +/= 20 points of pre-anesthetic level Consciousness 2- Awake and alert oriented x 3 Consciousness 2- Awake and alert oriented x 3 O2 Saturation 2- Able to maintain O2 satruation of 92% on room air O2 Saturation 2- Able to maintain O2 satruation of 92% on room air Respiratory 2- Able to deep breathe and cough well Respiratory 2- Able to deep breathe and cough well Total Score 10 Total Score 10 Contrast: Isovue 300- 150ml Contrast Amount: 130 ml Fluoro Dose: 214 mGy Procedure Log Time Note Entered By 12:14 PM Pt arrived to pathology laboratory technologist 1 at 12:14 [email or web address] 12:14 PM Darius Trevizo RN Position: Monitor Time in: 12:14 oparker 12:14 PM Kody Chaves RT (R) Position: Scrub Time in: 12:14 oparker 12:14 PM Dallin Marin RN Position: Marble Machine Tender Time in: 12:14 oparker 12:14 PM Physician arrived 12:14 oparker 12:14 PM Meet and greet completed oparker 12:14 PM Sign in performed according to hospital policy. [email or web address] 12:15 PM Time: 12:15 Is patient comfortable and pain free?: Yes oparker 12:15 PM Time: 12:15LOC: 5 = Fully awake and oriented or at pre-proc level oparker 12:15 PM Patient charges- Angio tray pack, Pulse Oximetry and ACIST tubing and transducer oparker 12:17 PM Procedure start 12:17 oparker 12:18 PM 12:18 Oxygen at 2 L/min per nasal cannula by Dallin Marin RN 12:18 PM Hair removed from procedure site in procedure lab using clippers. Bilateral groin prepped with Chloraprep by Dallin Marin RN, then patient was draped. [facility] intact. [email or web address] 12:[address] upon arrival woundvac oparker 12:20 PM 12:20 Versed 1 mg Intravenous Given by Dallin Marin RN 12:20 PM 12:20 Fentanyl 50 mcg Intravenous Given by Dallin Marin RN 12:22 PM Fani Han RT (R) Position: Monitor Time in: 12: oparker 12:19 PM ASA Class CLASS III- Severe systemic disease (i.e. prior AMI, diabetes with vascular complications, morbid obesity) [email or web address] 12:27 PM 12:26 10 ml Lidocaine 2% to right groin Subcutaneous Given By Oracio Agee MD, FACS [email or web address] 12:28 PM Access obtained in the right femoral artery by percutaneous puncture. 5 Fr. 10 cm Terumo [place] sheath placed in right femoral artery [email or web address] 12:28 PM 0.035 145cm J-wire wire utilized to assist with catheter placement [email or web address] 12:29 PM 5Fr Short pigtail catheter inserted over the wire [email or web address] 12:30 PM 4 mls contrast injected into abd ao. [email or web address] 12:31 PM Abdominal aorta angiography performed in AP contrast injected 10/25 mls. [email or web address] 12:31 PM Catheter repositioned for runoff. [email or web address] 12:31 PM Setting up for stepping [email or web address] 12:32 PM Abdominal angiogram with runoff completed: 5 ml/sec for a total of 50 mls [email or web address] 12:36 PM Physician reviewing films. [email or web address] 12:37 PM Catheter removed [email or web address] 12:37 PM 5Fr Omniflush catheter inserted over the wire [email or web address] 12:40 PM Catheter removed [email or web address] 12:44 PM Abdominal angiogram with runoff completed: 5 ml/sec for a total of 20 mls [email or web address] 12:48 PM Intervention started at this time [email or web address] 12:48 PM Sheath exchanged for a 6 Fr 45 cm Terumo Destination sheath inserted into right femoral artery [email or web address] 12:49 PM 0.035 Glidewire Angled 260cm guidewire advanced to target vessel. [email or web address] 12:50 PM Darius Trevizo RN Position: Marble Machine Tender Time in: 12:50 [email or web address] 12:51 PM 5Fr 100cm Glidecath Angled-Taper guide catheter advanced to target vessel [email or web address] 12:54 PM 3mls contrast injected into Lt Popliteal artery. [email or web address] 12:56 PM Guide wire removed intact [email or web address] 12:57 PM 3 mls contrast injected into Lt Popliteal artery. [email or web address] 12:59 PM 3 mls contrast injected into Lt Tibial trunk. [email or web address] 12:59 PM 12:59 Versed 1 mg Intravenous Given by Darius Trevizo RN3 01:00 PM 12:59 Fentanyl 50 mcg Intravenous Given by Darius Trevizo RN [email or web address] 01:00 PM [place] wire re-insereted. [email or web address] 01:02 PM 5Fr Berenstein catheter inserted over the wire [email or web address] 01:05 PM [place] wire removed. [email or web address] 01:09 PM 3 mls contrast injected into Lt HEEL STAINER. [email or web address] 01:13 PM 13:13 Oxygen at 4 L/min per nasal cannula by Darius Trevizo RN [email or web address] 01:14 PM 0.014 Victory 14, 30 gram 300cm guidewire advanced to target vessel. [email or web address] 01:15 PM Wire removed. [email or web address] 01:15 PM Glidewire re-inserted. [email or web address] 01:17 PM Glidewire removed. [email or web address] 01:19 PM Victory wire re-inserted. [email or web address] 01:20 PM Guide wire removed intact [email or web address] 01:21 PM Guide catheter removed intact [email or web address] 01:29 PM Diagram Region: Lower Extremity Arteries Anatomical Region: [id number]% Lesion in Mid Left Post. Tibial Intervention done: 0 (1=yes, 0=no) [email or web address] 01:29 PM Diagram Region: Lower Extremity Arteries Anatomical Region: [id number]-[id number]% Lesion in Distal Left Post. Tibial Intervention done: 0 (1=yes, 0=no) [email or web address] 01:30 PM Diagram Region: Lower Extremity Arteries Anatomical Region: [id number]% Lesion in Distal Left Ant. Tibial Intervention done: 0 (1=yes, 0=no) [email or web address] 01:30 PM Diagram Region: Lower Extremity Arteries Anatomical Region: [id number]% Lesion in Mid Right Ant. Tibial Intervention done: 0 (1=yes, 0=no) [email or web address] 01:33 PM Procedure completed at 13:33 [email or web address] 01:35 PM Sign Out completed: Radiation Dose 214.36 mGy Fluoro Time: 15.2 minutes. Isovue 300- 150ml contrast 120 ml given by Oracio Agee MD, FACS. Complications: None. Confirmed administered medications:Yes Sedation minutes 75 [email or web address] 01:35 PM Arterial sheath pulled using manual compression and V+Pad for 15 minutes by Darius Trevizo RN [email or web address] 01:35 PM Estimated Blood Loss: minimal [email or web address] 01:35 PM Post Blood Pressure: 180/89 [email or web address] 01:35 PM Post EKG: NSR [email or web address] 01:35 PM 13:35 Post Pulses: Bilateral DP & PT 1+. [email or web address] 01:35 PM Information taught: Peripheral angiogram [email or web address] 01:35 PM Education needs: Procedure, Plan of Care, and Disease Process [email or web address] 01:35 PM Learning barriers: None [email or web address] 01:36 PM Education methods: Verbal [email or web address] 01:36 PM Education evaluation: Able to repeat information [email or web address] 01:36 PM Patient pain level 0/10 [email or web address] 01:40 PM Report given to Mary CEBALLOS. Pt taken to , Room # 14 13:40 [email or web address] 01:42 PM Site status No bleeding/hematoma - Rt Groin as reported by Darius Trevizo RN at 13:41 [email or web address] 01:42 PM Opsite applied [email or web address] 12:18 PM HR=75 bpm, TDPC=417/76 mmhg, SpO2=93.0 %, Resp=0 B/min 12:21 PM Recorded ECG: HR=72 Condition=Condition 1 12:23 PM HR=76 bpm, GOWI=367/78 mmhg, SpO2=95.0 %, Resp=11 B/min, Comment=NSR 12:28 PM HR=69 bpm, XDMQ=135/70 mmhg, SpO2=97.0 %, Resp=23 B/min, Comment=NSR 12:31 PM Recorded ECG: HR=78 Condition=Condition 1 12:33 PM HR=74 bpm, GHIE=091/77 mmhg, SpO2=96.0 %, Resp=13 B/min, Comment=NSR 12:38 PM HR=75 bpm, TEGW=562/75 mmhg, SpO2=96.0 %, Resp=18 B/min, Comment=NSR 12:43 PM HR=75 bpm, LEOD=813/72 mmhg, SpO2=95.0 %, Resp=21 B/min, Comment=NSR 12:48 PM HR=73 bpm, CZVO=885/73 mmhg, SpO2=98.0 %, Resp=15 B/min, Comment=NSR 12:51 PM Recorded ECG: HR=74 Condition=Condition 1 12:18 PM PVIStat 12:18 PM Vitals capture started with the following parameters, Patient=Adult, Interval=5 min, Initial Ekaqxdmv=731 mmHg, Deflation Rate=5 mmHg, Cuff placed on Left Arm 12:53 PM HR=75 bpm, VDEF=562/79 mmhg, SpO2=97.0 %, Resp=22 B/min, Comment=NSR 12:59 PM HR=81 bpm, HGHI=238/85 mmhg, SpO2=95.0 %, Resp=28 B/min, Comment=NSR 01:03 PM HR=83 bpm, WYJN=280/100 mmhg, SpO2=96.0 %, Resp=22 B/min, Comment=NSR 01:08 PM HR=74 bpm, ARPW=128/77 mmhg, SpO2=88.0 %, Resp=21 B/min, Comment=NSR 01:13 PM HR=80 bpm, IMAA=215/76 mmhg, SpO2=88.0 %, Resp=20 B/min, Comment=NSR 01:19 PM HR=90 bpm, DDCH=438/96 mmhg, SpO2=98.0 %, Resp=29 B/min, Comment=NSR 01:24 PM HR=94 bpm, XKYF=907/105 mmhg, SpO2=95.0 %, Resp=15 B/min, Comment=NSR 01:28 PM HR=95 bpm, UPCE=271/140 mmhg, SpO2=99.0 %, Resp=23 B/min, Comment=NSR 01:33 PM HR=84 bpm, DKOY=131/89 mmhg, SpO2=95.0 %, Resp=26 B/min, Comment=NSR 01:39 PM HR=82 bpm, KVEY=789/90 mmhg, SpO2=93.0 %, Resp=20 B/min, Comment=NSR 01:42 PM Family placed in Not available. [email or web address] 01:42 PM Complications: None [email or web address] 01:42 PM Fluoro Time: 15.2 minutes [email or web address] 01:42 PM Isovue 300- 150ml contrast 120 ml given by Oracio Agee MD, FACS [facility] 01:43 PM Radiation Dose 214.36 mGy [facility] 01:43 PM Patient out of room 13:43 Peripheral Anatomy Vessel Pathology Lesion Stenosis Aneurysm Diameter Thrombus Type Left Post. Tibial Lesion 100 Left Post. Tibial Lesion 100 Left Ant. Tibial Lesion 100 Right Ant. Tibial Lesion 100 Post Procedure Information Blood Pressure: 180/89 mmHg Rhythm: NSR Post procedure instructions given Report Given To: [email or web address] Site Checks Time Location Status Staff Sheath In? Note 1:41:00 PM Rt Groin No bleeding/hematoma Darius Trevizo RN Pulses Time Site Pre Procedure Post Procedure Note Bilateral DP & PT 2+ 1+ Bilateral radial 2+ 2+ 1:35:00 PM Bilateral DP & PT 1+ Updated by Fani Han, RT(R) on 07/12/2019 1:43:41 PM electronically signed on 07/12/2019 1:44:21 PM with status of Final
--- NOTE | 2019-07-12 14:40 | Podiatry Progress Note ---
Date of Encounter: 07/12/19 Time of Encounter: 14:37 - Assessment and Plan (1) Cellulitis of left foot Current Visit: Yes Status: Acute Assessment: S/P left foot excisional debridement of wounds dorsal foot, heel, distal foot and submetarsal #5 removal of hardware left foot, application of wound vac, application PuraPlygraft, and application of PRP with Dr. Nicholson on 07/11/19 Erythema of left foot Ulceration noted to left calcaneous, left lateral foot, and left dorsal foot WBC 8.6, afebrile ESR 75, CRP 37 Surgical cultures pending, blood cultures pending 07/04/19 Wound cultures returned raoultella planticola 07/03/19 tcp02 R ankle 37, R foot 29, L ankle 28, L foot 24 07/03/19 ABIs bilaterally within normal limits CT negative for OM or abscess Wound vac in place, suction at 125mmHG, serosanginous drainage in canister Plan: Pain control, primary managing Awaiting cultures, IV atb per ID recommendations Dressing changed, see below Keep left lower extremity elevated, keep heel off of bed, use pillow to elevate if patient continues to refuse heel medix boot MWF wound vac change, puraply graft in place, do not remove when completing dressing change Cleansed with 0.9 NS Covered all open ulcerations with santyl, wet 4x4 gauze, 4x4 dry gauze, kerlix, and medipore tape Imaging: CT/CT foot LT w con IMPRESSION: Postsurgical changes from prior 1st TMT joint arthrodesis without significant osseous fusion. New from the prior study are multiple foci of air about the joint and hardware with overlying soft tissue irregularity concerning for infection. No well-defined fluid collection is seen. D/ / David Sandoval / David Sandoval Interpreting Provider: David Sandoval (2) Non-healing surgical wound Current Visit: Yes Status: Acute See above Qualifiers: Encounter type: initial encounter Qualified Code(s): T81.89XA - Other complications of procedures, not elsewhere classified, initial encounter Objective - Vital Signs Vital Signs: Vital Signs Temp Pulse Resp BP Pulse Ox 07/12/19 11:18 98.4 F 69 16 113/63 92 07/12/19 08:00 96 07/12/19 07:18 97.6 F 65 18 156/77 94 07/12/19 03:24 97.6 F 64 18 134/70 95 07/11/19 23:12 97.8 F 82 18 143/71 96 07/11/19 20:41 14 92 07/11/19 18:50 97.9 F 79 16 160/73 93 07/11/19 17:20 98.6 F 88 16 164/81 92 07/11/19 16:58 98.5 F 88 16 166/82 96 07/11/19 16:48 99.5 F 86 16 164/81 92 07/11/19 16:38 86 12 138/87 92 07/11/19 16:28 94 24 168/85 92 07/11/19 16:18 97.4 F L 94 16 149/80 92 Intake and Output 07/11/19 07/12/19 07/12/19 23:59 07:59 15:59 Intake Total 120 / 570 250 / 350 100 / 350 Output Total 320 / 620 400 / 400 Balance -200 / -50 -150 / -50 100 / -50 Intake: IV Fluids 250 / 350 100 / 350 Zosyn 3.375 GM In 0.9 % Sodium 100 / 100 Chloride (Mini-Bag +) 100 ML @ 25 mls/hr IVPB Q8H [facility] Rx#: [id number] Vancocin 1,000 MG In 0.9 % 250 / 250 Sodium Chloride 250 ML @ 167 mls/hr IVPB Q12H [facility] Rx#: [id number] Oral 120 / 120 Output: Urine 300 / 600 400 / 400 Estimated Blood Loss 20 / 20 Other: Meal NPO for Lunch # Voids 1 Weight 78.3 kg Blood Glucose* 157 175 147 Patient Weight 07/12/19 23:59 Weight 78.3 kg - Lab Result Diagrams: 07/12/19 09:08 07/12/19 09:08 Labs: Abnormal lab results WBC 11.7 K/mcL (4.3-11.1) H 07/10/19 12:52 Hgb 11.1 g/dL (11.5-15.4) L 07/12/19 09:08 Hct 35.1 % (35.3-44.9) L 07/12/19 09:08 MCH 27.5 pg (28.0-33.3) L 07/12/19 09:08 Neutrophils # 9.0 K/mcL (1.6-8.9) H 07/10/19 12:52 ESR 75 mm/hr (0-15) H 07/10/19 12:52 Potassium 3.3 mEq/L (3.5-5.1) L 07/11/19 03:56 Carbon Dioxide 31 mEq/L (23-29) H 07/12/19 09:08 Creatinine 0.52 mg/dL (0.60-1.20) L 07/12/19 09:08 Glucose 143 mg/dL (70-105) H 07/12/19 09:08 POC Glucose 147 mg/dL (70-99) H 07/12/19 11:52 Calculated Osmolality 303 (280-300) H 07/10/19 12:52 C-Reactive Protein 37 mg/L (Less than 10) H 07/10/19 12:52 Vancomycin Trough 11 mcg/mL (5-10) H 07/12/19 00:43 Microbiology, Last 48 Hours 07/11/19 15:40 Gram Stain - Final Left Foot 07/11/19 15:40 Wound Culture - Preliminary Left Foot Culture is incubating. 07/11/19 15:40 Anaerobic Culture - Preliminary Left Foot Culture is incubating. 07/10/19 12:52 Blood Culture - Preliminary Peripheral Venipuncture Culture is incubating and being continuously monitored for growth. Final report to follow. 07/10/19 12:52 Blood Culture - Preliminary Peripheral Venipuncture Culture is incubating and being continuously monitored for growth. Final report to follow. Consult Discharge Plan - Plan Referrals: Radha Chinchilla, TIP SCOURER [Primary Care Provider] -
--- NOTE | 2019-07-12 16:19 | Infectious Disease Consult ---
Infectious Disease-Consult - Encounter Date/Time Date of Encounter: 07/12/19 Time of Encounter: 16:20 - Data of Consult Patient: new to practice Reason for consult: "cellulitis and sepsis" Consult date: 07/12/19 Requesting Physician: Dean Steiner Primary Care Provider: Radha Chinchilla CNP - HPI HPI: Patient is a 69-year-old woman who presented to [place] emergency department on 07/10/2019 with left foot infection. We are consulted on 07/12/2019 for full cellulitis/sepsis" Patient is a 69-year-old woman with past medical history significant for COPD, coronary artery disease, diabetes mellitus type 2, GERD, hyperlipidemia and hypertension, history of [place] in the past status post CABG sustained a fracture of the left fibula, first second third and fourth metatarsal fracture on 05/03/2019. Patient tells me that she just got out of bed and she broke her foot. Denied any trauma. On 05/03/2019 patient underwent open reduction internal fixation of the left fibula fracture, left second third and fourth m etatarsal fracture and first transometatarsal joint arthrodesis 06/06/2019 patient was evaluated by Dr. Nicholson who noted a large wound measuring 913.90.3 cm and there was large amount of serous exudate draining from the wound. Patient underwent debridement of subcutaneous tissue. Patient continue to follow with wound care but the wound became necrotic. Picture from June 20 from the wound care clinic appreciated. Arterial study by Dr. Agee 07/03/2019 revealed bilateral lower extremity waveform demonstrates normal hemodynamics and normal bilateral ankle-brachial index and the overall impression was read as arterial hemodynamics are well maintained at rest. Transcutaneous monitoring i mpression was that the right leg is not consistent with healing and the left leg is not consistent with healing Patient came into the emergency department for further workup and evaluation. Since admission patient has been afebrile. She was initially tachycardic without tachypnea. Presenting labs revealed a WBC of 11.7 with 77% neutrophils. BUN 13, creatinine 0.6, lactic acid 2.1. ESR/CRP 75/37. Blood cultures were obtained on July 10 and are no growth to date. CT of the left foot 07/10/2018 revealed postsurgical changes from prior first TMT joint arthrodesis without significant osseous fusion. New from the prior study are multiple foci of air about the joint and hardware with overlying soft tissue irregularity concerning for infection. 07/11/2019 patient was taken to the OR where she underwent left foot excisional debridement of wounds dorsal foot 640.5 cm heel 330.3 cm. Removal of hardware left foot. Intra-Op cultures results are pending. Gram stain revealed gram-positive cocci. Patient was started on empiric vancomycin and Zosyn and we were asked to evaluate the patient and make further recommendations. Currently patient laying in bed she is a little bit of pain but she just came back from the catheter lab. Patient was evaluated in the presence of podiatry team. Patient denies any headache no visual changes no chest pain or shortness of breath no nausea or vomiting no diarrhea. She had a bowel movement yesterday. Patient denies any urinary symptoms. Patient continues to smoke and I offered her nicotine patch and she said no. - ROS Review of Systems: 10 point review of systems done, negative other for what mentioned in the history of present illness - Results CBC & Chem 7: 07/12/19 09:08 07/12/19 09:08 - Exam Vitals: Temp Pulse Resp BP Pulse Ox 98.4 F 69 16 113/63 92 07/12/19 11:18 07/12/19 11:18 07/12/19 11:18 07/12/19 11:18 07/12/19 11:18 Exam: GENERAL: Laying in bed, appears comfortable. HEAD: Normocephalic atraumatic EYES: PERRLA, EOMI, no conjunctival hemorrhage, sclera anicteric ENT: Mucous membranes moist, no oral thrush NECK: Supple. No meningeal signs. No masses LUNGS: Chest expanding symmetrically. Lungs sounds audible both lung esteban. No wheezing, no rhonchi CV: RRR, S1S2, ABDOMEN: Soft, nontender, nondistended. Bowel sounds audible EXTREMITY: Left foot post op. There is some erythema and edema. Very tender to touch. SKIN: Normal color. No rash. NEURO: Awake alert oriented 3. No obvious focal deficit PSYCH: Calm and appropriate. No agitation. Albuterol Neb [Proventil Neb] 2.5 mg IH Q6HR PRN 10/02/16 [History] Mv W-Ca/Iron/FA/Lutein/Hrb#179 [Sung Multivit For Women Caplet] 1 tab PO DAILY 10/02/16 [History] Nitroglycerin [Nitrostat] 0.4 mg SL Q5M PRN 12/10/17 [History] Ascorbic Acid [Vitamin C] 500 mg PO BID 04/03/19 [History] Ferrous Sulfate 325 mg PO BID 04/03/19 [History] Albuterol Sulfate [Proventil Inhaler] 2 puff IH Q4-6H PRN 05/03/19 [History] Alprazolam [Xanax] 2 mg PO TID PRN 05/03/19 [History] Aspirin [Adult Aspirin Regimen] 81 mg PO DAILY 05/03/19 [History] Cyanocobalamin (Vitamin B-12) [Vitamin B-12] 1,000 mcg PO BID 05/03/19 [History] Fluticasone Propionate Nasal [Flonase] 1 spray NS BID 05/03/19 [History] Cholecalciferol (D-3) [Vitamin D] 1,000 unit PO DAILY #30 tablet 05/25/19 [Rx] HYDROcodone/Acet 7.5/325 mg [[place] 7.5-325 mg] 1 tab PO Q6HR PRN 07/10/19 [History] Amoxicillin/Clavulanate [Augmentin] 1 tab PO BID 07/11/19 [History] Lisinopril [Zestril] 5 mg PO DAILY 07/11/19 [History] Omeprazole [PriLOSEC] 40 mg PO DAILY PRN 07/11/19 [History] Ondansetron HCl 8 mg PO DAILY PRN 07/11/19 [History] Allergy/AdvReac Type Severity Reaction Status Date / Time No Known Allergies Allergy Verified 05/03/19 18:37 - Assessment and Plan (1) Cellulitis of left foot Current Visit: Yes Status: Acute Status post left foot fracture 05/03/2019 requiring open reduction internal fixation 06/06/2019 necrotic skin tissue being seen by wound care 07/03/2019 arterial study was "well-maintained at rest" Transcutaneous monitoring 07/03/2019 right and left leg is not consistent with healing. Wound was not improving CT left foot 07/10/2019: Multiple foci of air about the joint and hardware with overlying soft tissue irregularity concerning for infection 07/11/2019 Status post left foot debridement, removal of hardware Intra-Op cultures pending but Gram stain showed gram-positive cocci Patient started empirically on vancomycin and Zosyn SNOMED Code(s): 817890096 (2) DM type 2 (diabetes mellitus, type 2) Current Visit: No Status: Chronic Qualifiers: 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 custodial insulin use: with ad terminal makeup operator use 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 complication status: without complication Qualified Code(s): E11.9 - Type 2 diabetes mellitus without complications; Z79.4 - half-way (current) use of insulin SNOMED Code(s): 31143338 (3) History of myocardial infarction Current Visit: No Status: Acute SNOMED Code(s): 176793007 (4) CAD (coronary artery disease) Current Visit: No Status: Acute Qualifiers: Coronary Disease-Associated Artery/Lesion type: [place] artery [place] vs. transplanted heart: [place] heart Associated angina: without angina Qualified Code(s): I25.10 - Atherosclerotic heart disease of [place] coronary artery without angina pectoris SNOMED Code(s): 64335385 (5) Hyperlipidemia Current Visit: No Status: Chronic Qualifiers: Hyperlipidemia type: unspecified Qualified Code(s): E78.5 - Hyperlipidemia, unspecified SNOMED Code(s): 29437924 - Recommendations Recommendations: Await Intra-Op cultures to finalize Continue vancomycin with goal vancomycin trough around 15 Continue Zosyn We will tailor antibiotics according to culture results Patient will probably need 6 weeks at least of IV antibiotics We will recommend PICC versus midline based on what antibiotics which she was Monitor labs and for drug toxicity Discussed with Adore Bello and Dr. Nicholson Past Med Surg Social Fam HX - Past Medical History Medical history: COPD, diabetes, hyperlipidemia Additional medical history: ANEMIA, MRSA, WEARS HOME 02 AT 2LITERS NEEDED, SLEEP APNEA Psychiatric history: depression - Past Surgical History Surgical History: appendectomy, cholecystectomy, coronary bypass (CABG), herniorrhaphy, hysterectomy Additional surgical history: I&D TO STERNAL WOUND INFECTION, triple bypass 2013 - Social History Smoking Status: Current every day smoker Smokeless Tobacco Status: No Alcohol use: none Drug use: none - Family History Mother Living Status: Hx Family Cancer: Yes Hx Family Endocrine Disorder: Yes Father Living Status: Hx Family Cancer: Yes Hx Family Endocrine Disorder: Yes Consult Discharge Plan - Plan Referrals: Radha Chinchilla, SENIOR ACCOUNTANT CPA [Primary Care Provider] -
[2019-07-12] MEDS: ALPRAZolam 1 MG TABLET PO PRN (23:40)
[2019-07-13] MEDS: *HR* Heparin 5,000 UNIT/ML VIAL SQ SCH ×2 (04:43→18:16)
[2019-07-13] MEDS: Piperacillin/Tazobactam 3.375 GM in 0.9 % Sodium Chloride Mini Bag 100 ML IVPB SCH ×3 (07:17→16:29)
[2019-07-13 07:36] LABS: Basophils % 0.4 %; Eosinophils # 0.3 K/mcL (0.0-0.6); Eosinophils % 2.6 %; Hematocrit 34.3 % (35.3-44.9); Immature Granulocytes % 0.6 % (0-4); Lymphocytes # 1.5 K/mcL (0.6-4.6); Lymphocytes % 13.8 %; Mean Corpuscular HGB Conc 32.1 g/dL (31.6-35.5); Mean Corpuscular Hemoglobin 28.1 pg (28.0-33.3); Mean Corpuscular Volume 87.7 fL (83.0-100.0); Mean Platelet Volume 11.3 fL (9.4-12.4); Monocytes # 0.6 K/mcL (0.0-1.3); Monocytes % 5.1 %; Neutrophils # 8.3 K/mcL (1.6-8.9); Platelet Count 242 K/mcL (140-400); Red Blood Count 3.91 M/mcL (3.82-4.97); Red Cell Distribution Width 13.1 % (11.5-14.5); Segmented Neutrophils % 77.5 %; White Blood Count 10.7 K/mcL (4.3-11.1)
[2019-07-13 07:52] LABS: BUN/Creatinine Ratio 16 (6-26); Blood Urea Nitrogen 12 mg/dL (8-23); Calcium 8.8 mg/dL (8.6-10.3); Carbon Dioxide 30 mEq/L (23-29); Chloride 101 mEq/L (98-107); Glucose 129 mg/dL (70-105); Osmolality,Calculated 293 (280-300); Potassium 3.6 mEq/L (3.5-5.1); Sodium 141 mEq/L (136-145); eGFR For African Americans > 60 (> 60); eGFR For Non-African Americans > 60 (> 60)
[2019-07-13] MEDS: Cholecalciferol (D-3) 1,000 UNIT (25MCG) TABLET PO SCH (10:07)
[2019-07-13] MEDS: Cyanocobalamin (B-12) 1,000 MCG TABLET PO SCH ×2 (10:07→20:57)
[2019-07-13] MEDS: Aspirin Enteric Coated 81 MG Tablet PO SCH (10:07)
[2019-07-13] MEDS: Ascorbic Acid 500 MG TABLET PO SCH ×2 (10:07→20:57)
[2019-07-13] MEDS: Fluticasone Propionate Nasal 50 MCG/SPRAY BOTTLE NS SCH ×2 (10:14→21:02)
[2019-07-13] MEDS: Insulin LISPRO 300 UNITS/3 ML VIAL SQ SCH ×3 (10:15→16:36)
[2019-07-13] MEDS: *HR* HYDROcodone/Acet 5/325 mg TABLET PO PRN (10:56)
--- NOTE | 2019-07-13 11:17 | Podiatry Progress Note ---
Date of Encounter: 07/13/19 Time of Encounter: 08:30 Subjective Interval history: 69 year old uncontrolled diabetic female s/p debridement of dorsal left foot wound, CHRISTEL, application of graft and wound vac application, had angiogram yesterday. patient says she is doing okay, no complaints. denies feeling like she had a fever, chills, nausea, vomiting. She is not wearing her offloading heel protector boot, she says she does not like it and it causes some discomfort. well developed and nourished female in no acute distress no erythema of the left foot. no purulence expressed. wound posterior heel-fibrotic with a small amount of granulation tissue dorsal foot wound exposed bone and tendon medially, exposed tendon laterally, graft in place PuraPly, some evidence of bleeding (not active) distal forefoot just proximal to 4th digit another wound with PuraPly in place plantar submet 5 another wound which is fibrotic with some eschar discussed patient with Dr. Agee yesterday, not amenable to improvement of blood flow. medial and lateral plantar arteries do carry blood supply to the foot, remainder of blood supply to foot is poor dorsally starting up in the leg. Today we had a blunt discussion regarding her wounds, blood flow to her left extremity and ability to heal the wounds on her foot. We discussed the affects chronic diabetes and blood flow and ability to heal wounds. We discussed her previous surgery from her fracture. Without being asked or prompted, she says I know you did cause my wounds or blood flow problem. She says she would prefer to try to save her leg and foot but says if it comes down to it she is okay with the amptation, she says whatever will be will be. We discussed her treatment options-below the knee amputation, trying a partial foot amputation with plantar flap placed dorsally, flap from the bottom of the foot to try to cover some of her wound dorsally, local wound care and grafting/surgery or referral to plastics or another physician. Patient says she does not want amputation now and she wants to do wound care. she says she wants to stay here at [facility] with the current doctors she has including myself. It was explained to her she could have non-healing wounds, infection set in that could get into her blood stream or cause her to be septic, could suffer kidney or liver damage and in the end still lose her foot/leg, have a heart attack or etc. She says again what will be will be. No guarantees were made as to the outcome of any treatment or procedure. Discussed with patient the importance of smoking cessation and the detrimental effect of smoking on blood flow and wound healing, she says she will stop as she has stopped in the past. We also discussed the importance of glycemic control and she says she will get her diabetes under better control. Discussed the importance of keeping pressure off her heel and foot, she says she will use the pillows and keep her heel off the bed. During the visit I stepped out to get some bandages from the supply closet for approximately 3 minutes and the patient was told to stay in bed until the foot was wrapped and upon coming back in she was up out of bed but getting back into bed and said I'm just pivoting on my foot. Plan at this time ID following for antibiotics wound vac which was changed today offloading of the heels, pillows were placed under the leg and no pressure on heel as she refuses to wear the heel protector boot patient will require ECF placement non-weight bearing to the left lower extremity DVT ppx wound care daily on the heel and submet 5 wound using santyl, 4x4 gauze, ABD and kerlix, leave PuraPly in place on wound proximal to the 4th digit. plan for further surgery next Monday or Monday 50 minutes was spent face to face with the patient during the visit Objective - Vital Signs Vital Signs: Vital Signs Temp Pulse Resp BP Pulse Ox 07/13/19 07:52 98.5 F 87 15 157/84 98 07/12/19 20:23 97.6 F 72 18 142/77 95 07/12/19 17:50 98.2 F 82 18 168/88 94 07/12/19 15:50 98.4 F 18 94 07/12/19 15:20 98.4 F 82 18 166/78 94 07/12/19 14:50 98.2 F 82 18 168/71 94 07/12/19 14:35 98.2 F 83 18 94 07/12/19 14:20 98.2 F 82 18 94 07/12/19 14:05 98.2 F 87 20 171/93 07/12/19 11:18 98.4 F 69 16 113/63 92 Intake and Output 07/12/19 07/13/19 07/13/19 23:59 07:59 15:59 Intake Total 350 / 700 350 / 350 Output Total 700 / 1100 Balance -350 / -400 350 / 350 Intake: IV Fluids 350 / 700 350 / 350 Zosyn 3.375 GM In 0.9 % Sodium 100 / 200 100 / 100 Chloride (Mini-Bag +) 100 ML @ 25 mls/hr IVPB Q8HR JJ Rx#: [id number] Vancocin 1,000 MG In 0.9 % 250 / 500 250 / 250 Sodium Chloride 250 ML @ 167 mls/hr IVPB Q12H JJ Rx#: [id number] Oral 0 / 0 Output: Urine 700 / 1100 Other: Blood Glucose* 156 122 - Lab Result Diagrams: 07/13/19 07:12 07/13/19 07:12 Labs: Abnormal lab results WBC 11.7 K/mcL (4.3-11.1) H 07/10/19 12:52 Hgb 11.0 g/dL (11.5-15.4) L 07/13/19 07:12 Hct 34.3 % (35.3-44.9) L 07/13/19 07:12 MCH 27.5 pg (28.0-33.3) L 07/12/19 09:08 Neutrophils # 9.0 K/mcL (1.6-8.9) H 07/10/19 12:52 ESR 75 mm/hr (0-15) H 07/10/19 12:52 Potassium 3.3 mEq/L (3.5-5.1) L 07/11/19 03:56 Carbon Dioxide 30 mEq/L (23-29) H 07/13/19 07:12 Creatinine 0.52 mg/dL (0.60-1.20) L 07/12/19 09:08 Glucose 129 mg/dL (70-105) H 07/13/19 07:12 POC Glucose 156 mg/dL (70-99) H 07/12/19 20:25 Calculated Osmolality 303 (280-300) H 07/10/19 12:52 C-Reactive Protein 37 mg/L (Less than 10) H 07/10/19 12:52 Vancomycin Trough 11 mcg/mL (5-10) H 07/12/19 00:43 Microbiology, Last 48 Hours 08/29/19 15:40 Wound Culture - Final Left Foot Raoultella planticola 07/11/19 15:40 Gram Stain - Final Left Foot 07/11/19 15:40 Anaerobic Culture - Preliminary Left Foot Culture is incubating. Consult Discharge Plan - Plan Referrals: Radha Chinchilla, ALEJANDRO [Primary Care Provider] -
[2019-07-13] MEDS ORDERED: Aminoglycoside Consult 1 EACH MC ONE (12:54)
--- NOTE | 2019-07-13 13:13 | Internal Med Progress Note ---
Hospitalist Progress Note - Encounter Date of Encounter: 07/13/19 Time of Encounter: 09:00 - Subjective Interval History: Seen at bedside. Got the angiogram yesterday, no interventions were done. Patient mentioned that her pain is well controlled at this point. Denies fever, chills, rigors. Denies chest pain or shortness of breath. Wound vacuum in p lace. No other overnight events. - Exam Vitals: Temp Pulse Resp BP Pulse Ox 98.6 F 78 16 119/68 92 07/13/19 11:53 07/13/19 11:53 07/13/19 11:53 07/13/19 11:53 07/13/19 11:53 Exam: General: Alert and oriented, no physical distress, able to follow commands. Respiratory: Normal vesicular breathing, no added sounds, breathing equal in both sides. CVS: Normal heart sounds, no murmurs, regular rhthm, no edema Extremities: No peripheral edema, peripheral pulses intact. Left foot with woudn vac, no abscess appreciated, no discharge or blood appreciated. Peripherl pulses intact. Gastrointestinal: Soft, nontender abdomen, normal abdominal sounds. No distention noted. Genitourinary: No paravertebral tenderness. Neurological: Alert and oriented. No focal deficits. Cranial nerves II-XII intact. - Assessment and Plan (1) Cellulitis of left foot Current Visit: Yes Status: Acute Assessment and Plan: Presenteed with Cellulitis of the left foot. SIRS of 2 with leucocytosis and tachycardai at presentaion. Afebrile currently. ESR of 75, CRP of 27. 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 CT scan negative for osteomyelitis. The patient had left foot excisional debridement of wounds dorsal foot, removal of hardware left foot, application PuraPlygraft, application of PRP 07/11 HAd angiogram 07/12, as per reports left posterior tibial, left anterior tibia, left dorsalis pedis and right anterior tibial was occluded but left peroneal artery was patent and was providing the collateral flow to the foot with the formation of the plantar arteries. No further intervneions. ID consult was placed to recommended to continue IV antibiotics for total of 6 weeks. Final decision after the culture results. Continue the patient on IV vancomycin and IV Zosyn at this point. Patient will need PICC line placement to nursing facility. (2) Left foot infection Current Visit: Yes Status: Acute Assessment and Plan: Plan mentioned above (3) Non-healing surgical wound Current Visit: Yes Status: Acute Assessment and Plan: Plan mentoned above (4) COPD exacerbation Current Visit: No Status: Acute Assessment and Plan: NOt in exacerbation Currently saturations in 90s on RA Continue home medications (5) DVT prophylaxis Current Visit: No Status: Acute Assessment and Plan: SubQ heparin (6) DM type 2 (diabetes mellitus, type 2) Current Visit: No Status: Chronic Assessment and Plan: Currently not on insulin. Hold off home antidiabetic medications. Blood glucose levels within reasonable limits. Continue on low dsoe sliding scale insulin. (7) HTN (hypertension) Current Visit: No Status: Chronic Assessment and Plan: Blood pressure within reasonable limits. Continue to monitor (8) Insomnia Current Visit: Yes Status: Acute Assessment and Plan: Continue zolpidem as needed. (9) Sepsis Current Visit: Yes Status: Acute Assessment and Plan: 2 SIRS wih the tachycardai and leucocytosi at presentaion Plan mentioned above - Time Spent with Patient Total time spent is greater than 50% in coordination of care (as documented) at patient's floor/unit and/or counseling patient: Internal Medicine: Result - Labs CBC & Chem 7: 07/13/19 07:12 07/13/19 07:12 Labs: Short CBC 07/13/19 Range/Units 07:12 WBC 10.7 (4.3-11.1) K/mcL Hgb 11.0 L (11.5-15.4) g/dL Hct 34.3 L (35.3-44.9) % Plt Count 242 (140-400) K/mcL Neutrophils # 8.3 (1.6-8.9) K/mcL BMP 07/13/19 07:12 Sodium 141 Potassium 3.6 Chloride 101 Carbon Dioxide 30 H BUN 12 Creatinine 0.77 Glucose 129 H Calcium 8.8 Consult Discharge Plan - Plan Referrals: Radha Chinchilla, TEACHING ARTIST [Primary Care Provider] - (3) Non-healing surgical wound Qualifiers: Encounter type: initial encounter Qualified Code(s): T81.89XA - Other complications of procedures, not elsewhere classified, initial encounter (6) DM type 2 (diabetes mellitus, type 2) Qualifiers: 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 computer terminal operator insulin use: with penitentiary use 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 complication status: without complication Qualified Code(s): E11.9 - Type 2 diabetes mellitus without complications; Z79.4 - care home (current) use of insulin (7) HTN (hypertension) Qualifiers: Hypertension type: essential hypertension Qualified Code(s): I10 - Essential (primary) hypertension (8) Insomnia Qualifiers: Insomnia type: unspecified Qualified Code(s): G47.00 - Insomnia, unspecified (9) Sepsis Qualifiers: Sepsis type: sepsis due to unspecified organism Sepsis acute organ dysfunction status: unspecified Qualified Code(s): A41.9 - Sepsis, unspecified organism
[2019-07-13] MEDS: *HR* OxyCODONE Immed Rel 5 MG TABLET PO PRN ×2 (13:32→20:57)
--- NOTE | 2019-07-13 13:47 | Vascular/[facility] Progress Note ---
Date of Encounter: 07/13/19 Time of Encounter: 13:00 - Assessment and plan (1) Non-healing surgical wound Current Visit: Yes Status: Chronic Patient has ischemia to left foot that is not correctable with either endovascular therapy or bypass grafting. Patient is to be managed with aggressive wound care. Presently has a wound VAC in position. Will sign off case for now. We will remain available should any new issues arise or if left foot deteriorates. Qualifiers: Encounter type: initial encounter Qualified Code(s): T81.89XA - Other complications of procedures, not elsewhere classified, initial encounter - Subjective Interval history: Patient has no complaints. Denies any issues associated with the right groin puncture or couplet agents associated with left lower extremity manipulations. Vital Signs, Last 4 Hours Temp Pulse Resp BP Pulse Ox 07/13/19 11:53 98.6 F 78 16 119/68 92 - Physical Examination General: Present: Conversant HEENT: Present: Atraumatic Neck: Absent: JVD Cardiac: Present: Reg Rate and Rhythm Vascular: Present: Color/Temperature (Left foot is cool. Left thigh and calf are warm.), Other (Right groin puncture site is clean and dry. Dressing is intact.) Results 07/13/19 07:12 07/13/19 07:12 Lab Results, Last 24 hours 07/13/19 07/13/19 07:12 07:12 WBC 10.7 Hgb 11.0 L Hct 34.3 L Plt Count 242 Sodium 141 Potassium 3.6 Chloride 101 Carbon Dioxide 30 H BUN 12 Creatinine 0.77 Glucose 129 H Calcium 8.8 Consult Discharge Plan - Plan Referrals: Radha Chinchilla, MERCERIZING RANGE FEEDER [Primary Care Provider] -
[2019-07-13] MEDS: ALPRAZolam 1 MG TABLET PO PRN (20:57)
[2019-07-14] MEDS: Piperacillin/Tazobactam 3.375 GM in 0.9 % Sodium Chloride Mini Bag 100 ML IVPB SCH ×3 (00:03→15:33)
[2019-07-14 03:26] LABS: Basophils % 0.4 %; Eosinophils # 0.3 K/mcL (0.0-0.6); Eosinophils % 4.7 %; Hematocrit 30.9 % (35.3-44.9); Hemoglobin 9.9 g/dL (11.5-15.4); Immature Granulocytes % 0.4 % (0-4); Lymphocytes # 1.9 K/mcL (0.6-4.6); Mean Corpuscular Hemoglobin 28.5 pg (28.0-33.3); Mean Platelet Volume 11.1 fL (9.4-12.4); Monocytes # 0.6 K/mcL (0.0-1.3); Monocytes % 9.1 %; Neutrophils # 4.1 K/mcL (1.6-8.9); Platelet Count 209 K/mcL (140-400); Red Blood Count 3.47 M/mcL (3.82-4.97); Red Cell Distribution Width 13.2 % (11.5-14.5); Segmented Neutrophils % 58.4 %
[2019-07-14 03:45] LABS: BUN/Creatinine Ratio 33 (6-26); Blood Urea Nitrogen 17 mg/dL (8-23); Calcium 8.6 mg/dL (8.6-10.3); Carbon Dioxide 29 mEq/L (23-29); Chloride 103 mEq/L (98-107); Glucose 148 mg/dL (70-105); Osmolality,Calculated 292 (280-300); Potassium 3.5 mEq/L (3.5-5.1); Sodium 139 mEq/L (136-145); eGFR For African Americans > 60 (> 60); eGFR For Non-African Americans > 60 (> 60)
[2019-07-14] MEDS: *HR* Heparin 5,000 UNIT/ML VIAL SQ SCH ×2 (06:19→17:07)
[2019-07-14] MEDS: Ascorbic Acid 500 MG TABLET PO SCH ×2 (07:30→19:49)
[2019-07-14] MEDS: Cyanocobalamin (B-12) 1,000 MCG TABLET PO SCH ×2 (07:30→19:49)
[2019-07-14] MEDS: Cholecalciferol (D-3) 1,000 UNIT (25MCG) TABLET PO SCH (07:30)
[2019-07-14] MEDS: Fluticasone Propionate Nasal 50 MCG/SPRAY BOTTLE NS SCH (07:32)
[2019-07-14] MEDS: Insulin LISPRO 300 UNITS/3 ML VIAL SQ SCH ×3 (07:36→15:49)
[2019-07-14] MEDS: Aspirin Enteric Coated 81 MG Tablet PO SCH (07:36)
[2019-07-14] MEDS: *HR* OxyCODONE Immed Rel 5 MG TABLET PO PRN ×4 (07:44→19:49)
[2019-07-14 08:07] LABS: Estimated Average Glucose 166 mg/dl
--- NOTE | 2019-07-14 09:16 | Internal Med Progress Note ---
Hospitalist Progress Note - Encounter Date of Encounter: 07/14/19 Time of Encounter: 09:13 - Subjective Interval History: Having a lot of postoperative pain today. Requests to get oxycodone more frequently. - Exam Vitals: Temp Pulse Resp BP Pulse Ox 98.2 F 85 15 150/81 95 07/14/19 07:45 07/14/19 07:45 07/14/19 07:45 07/14/19 07:45 07/14/19 07:45 Exam: General: Ill-appearing and writhing in pain HEENT: No erythema of posterior pharynx. No exudates. Lymphatics: No mandibular or cervical lymphadenopathy Cardiovascular: RRR. No murmurs. No chest wall tenderness. Lungs: Clear to auscelltation bilaterally. Regular chest rise. Abdomen: Non-tender. No rebound or gaurding. Nl bowel sounds. Extremities: RLE with surgical dressing in place c/d/i Skin: No rahses, abrasions, or contusions. Nl cap refill. Psych: Nl attention. A&Ox3 Neuro: lean manager II-XII intact. 5/5 strength. Sensation to light touch and pinprick intact. - Assessment and Plan (1) Cellulitis of left foot Current Visit: Yes Status: Acute Assessment and Plan: Patient with history of uncontrolled type 2 diabetes and PAD presented with cellulitis of left foot status post left foot excisional debridement of wounds dorsal foot, heel, distal foot and submetarsal #5 removal of hardware left foot, application of wound vac, application PuraPlygraft, and application of PRP with Dr. Nicholson on 07/11/19. -Culture growing Raoultella planticola - appears to be pansensitive. We will DC vancomycin and discuss with ID tomorrow regarding further de-escalation -Patient found to have ischemia of left foot not correctable with either endovascular therapy or bypass grafting. May need amputation in future if wound fails to heal -In a lot of pain this morning so will work on pain control PLAN: - Zosyn - Pain control - PICC placement order placed - Encourage smoking cessation - Will d/c to SNF - Wound care per podiatry: Keep left lower extremity elevated, keep heel off of bed, use pillow to elevate if patient continues to refuse heel medix boot F wound vac change, puraply graft in place, do not remove when completing dressing change (2) Non-healing surgical wound Current Visit: Yes Status: Chronic Assessment and Plan: Found to have PAD this hospitalization that is non-amenable to vascular intervention. As a result, lower extremity wound may be difficult to heal and may result in amputation discussed above. - Continue aspirin - Follow up with vascular surgery at time of discharge (3) Sepsis Current Visit: Yes Status: Resolved Assessment and Plan: Presented septic and has received IV fluids and antibiotics. Now resolved. (4) DM type 2 (diabetes mellitus, type 2) Current Visit: No Status: Chronic Assessment and Plan: Apparently used to be on insulin and metformin in the past but is on neither currently outpatient. - A1c - Plan for either insulin or metformin therapy for discharge (5) COPD exacerbation Current Visit: No Status: Resolved (6) HTN (hypertension) Current Visit: No Status: Chronic DVT Prophylaxis: Heparin Internal Medicine: Result - Labs CBC & Chem 7: 07/14/19 03:09 07/14/19 03:09 Labs: Short CBC 07/14/19 Range/Units 03:09 WBC 7.0 (4.3-11.1) K/mcL Hgb 9.9 L (11.5-15.4) g/dL Hct 30.9 L (35.3-44.9) % Plt Count 209 (140-400) K/mcL Neutrophils # 4.1 (1.6-8.9) K/mcL BMP 07/14/19 03:09 Sodium 139 Potassium 3.5 Chloride 103 Carbon Dioxide 29 BUN 17 Creatinine 0.52 L Glucose 148 H Calcium 8.6 Consult Discharge Plan - Plan Referrals: Radha Chinchilla, RN [employer] [Primary Care Provider] - (2) Non-healing surgical wound Qualifiers: Encounter type: initial encounter Qualified Code(s): T81.89XA - Other complications of procedures, not elsewhere classified, initial encounter (3) Sepsis Qualifiers: Sepsis type: sepsis due to unspecified organism Sepsis acute organ dysfunction status: unspecified Qualified Code(s): A41.9 - Sepsis, unspecified organism (4) DM type 2 (diabetes mellitus, type 2) Qualifiers: 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
[2019-07-14] MEDS: ALPRAZolam 1 MG TABLET PO PRN (19:49)
[2019-07-15] MEDS: Piperacillin/Tazobactam 3.375 GM in 0.9 % Sodium Chloride Mini Bag 100 ML IVPB SCH ×4 (00:25→23:42)
[2019-07-15] MEDS: Fluticasone Propionate Nasal 50 MCG/SPRAY BOTTLE NS SCH ×3 (00:38→20:13)
[2019-07-15] MEDS: *HR* OxyCODONE Immed Rel 5 MG TABLET PO PRN (02:31)
[2019-07-15] MEDS: *HR* Heparin 5,000 UNIT/ML VIAL SQ SCH ×2 (05:21→18:28)
[2019-07-15] MEDS ORDERED: 0.9 % Sodium Chloride 500 ML IVC PRN (09:22)
[2019-07-15] MEDS ORDERED: Bisacodyl 10 MG RECTAL SUPPOSITORY RC PRN (09:23)
[2019-07-15 09:48] LABS: Basophils % 0.3 %; Eosinophils # 0.3 K/mcL (0.0-0.6); Eosinophils % 2.3 %; Hematocrit 32.1 % (35.3-44.9); Hemoglobin 10.1 g/dL (11.5-15.4); Immature Granulocytes % 0.7 % (0-4); Lymphocytes # 1.9 K/mcL (0.6-4.6); Lymphocytes % 16.2 %; Mean Corpuscular HGB Conc 31.5 g/dL (31.6-35.5); Mean Corpuscular Hemoglobin 28.1 pg (28.0-33.3); Mean Corpuscular Volume 89.4 fL (83.0-100.0); Mean Platelet Volume 11.5 fL (9.4-12.4); Monocytes # 0.7 K/mcL (0.0-1.3); Monocytes % 6.3 %; Neutrophils # 8.5 K/mcL (1.6-8.9); Platelet Count 231 K/mcL (140-400); Red Blood Count 3.59 M/mcL (3.82-4.97); Red Cell Distribution Width 13.5 % (11.5-14.5); Segmented Neutrophils % 74.2 %
[2019-07-15 09:51] LABS: White Blood Count 11.5 K/mcL (4.3-11.1)
[2019-07-15] MEDS ORDERED: 0.9 % Sodium Chloride 1,000 ML ONE ×2 (09:57→11:38)
[2019-07-15 10:09] LABS: Alanine Aminotransferase 12 Units/L (7-52); Albumin/Globulin Ratio 1.1 (1.1-2.2); Alkaline Phosphatase 57 Units/L (34-104); Aspartate Amino Transferase 17 Units/L (13-39); BUN/Creatinine Ratio 26 (6-26); Bilirubin,Total 0.4 mg/dL (0.3-1.0); Blood Urea Nitrogen 27 mg/dL (8-23); Calcium 8.7 mg/dL (8.6-10.3); Carbon Dioxide 33 mEq/L (23-29); Chloride 100 mEq/L (98-107); Globulin 2.8 g/dL (2.4-3.5); Glucose 140 mg/dL (70-105); Osmolality,Calculated 299 (280-300); Potassium 3.7 mEq/L (3.5-5.1); Sodium 141 mEq/L (136-145); Total Protein 5.8 g/dL (6.4-8.9); eGFR For African Americans > 60 (> 60); eGFR For Non-African Americans 52 (> 60)
[2019-07-15] MEDS: Aspirin Enteric Coated 81 MG Tablet PO SCH (10:13)
[2019-07-15] MEDS: Cyanocobalamin (B-12) 1,000 MCG TABLET PO SCH ×2 (10:13→20:11)
[2019-07-15] MEDS: Ascorbic Acid 500 MG TABLET PO SCH ×2 (10:13→20:11)
[2019-07-15] MEDS: Cholecalciferol (D-3) 1,000 UNIT (25MCG) TABLET PO SCH (10:13)
[2019-07-15] MEDS: Insulin LISPRO 300 UNITS/3 ML VIAL SQ SCH ×3 (10:14→16:39)
--- NOTE | 2019-07-15 10:43 | Internal Med Progress Note ---
Hospitalist Progress Note - Encounter Date of Encounter: 07/15/19 Time of Encounter: 10:40 - Subjective Interval History: Patient experiencing acute onset periumbilical pain this morning. White count slightly elevated. Lactate normal. Slight SAL. Has not had a bowel movement and multiple days. - Exam Vitals: Temp Pulse Resp BP Pulse Ox 98.1 F 72 16 94/50 94 07/15/19 06:36 07/15/19 06:36 07/15/19 06:36 07/15/19 09:13 07/15/19 06:36 Exam: General: Ill-appearing and writhing in pain HEENT: No erythema of posterior pharynx. No exudates. Lymphatics: No mandibular or cervical lymphadenopathy Cardiovascular: RRR. No murmurs. No chest wall tenderness. Lungs: Clear to auscelltation bilaterally. Regular chest rise. Abdomen: Non-tender. No rebound or gaurding. Nl bowel sounds. Extremities: RLE with surgical dressing in place c/d/i Skin: No rahses, abrasions, or contusions. Nl cap refill. Psych: Nl attention. A&Ox3 Neuro: moto mix operator II-XII intact. 5/5 strength. Sensation to light touch and pinprick intact. - Assessment and Plan (1) Periumbilical abdominal pain Current Visit: Yes Status: Acute Assessment and Plan: Acute onset periumbilical abdominal pain this morning. Crampy. Has not had a bowel movement in several days. Slight leukocytosis. Lactate normal. - Suppository - If no improvement in pain after bowel movement will pursue CT imaging (2) Cellulitis of left foot Current Visit: Yes Status: Acute Assessment and Plan: Patient with history of uncontrolled type 2 diabetes and PAD presented with cellulitis of left foot status post left foot excisional debridement of wounds dorsal foot, heel, distal foot and submetarsal #5 removal of hardware left foot, application of wound vac, application PuraPlygraft, and application of PRP with Dr. Nicholson on 07/11/19. -Culture growing Raoultella planticola - appears to be pansensitive. We will discuss with ID tomorrow regarding further de-escalation -Patient found to have ischemia of left foot not correctable with either endovascular therapy or bypass grafting. May need amputation in future if wound fails to heal PLAN: - Zosyn - Pain control - PICC placement order placed - Encourage smoking cessation - Will d/c to SNF - likely tomorrow - Wound care per podiatry: Keep left lower extremity elevated, keep heel off of bed, use pillow to e levate if patient continues to refuse heel medix boot MWF wound vac change, puraply graft in place, do not remove when completing dressing change (3) Non-healing surgical wound Current Visit: Yes Status: Chronic Assessment and Plan: Found to have PAD this hospitalization that is non-amenable to vascular intervention. As a result, lower extremity wound may be difficult to heal and may result in amputation discussed above. - Continue aspirin - Follow up with vascular surgery at time of discharge (4) Sepsis Current Visit: Yes Status: Resolved Assessment and Plan: Presented septic and has received IV fluids and antibiotics. Now resolved. (5) DM type 2 (diabetes mellitus, type 2) Current Visit: No Status: Chronic Assessment and Plan: pparently used to be on insulin and metformin in the past but is on neither currently outpatient. HgA1c of 7.4. - Plan for metformin therapy for discharge (6) COPD exacerbation Current Visit: No Status: Resolved Assessment and Plan: NOt in exacerbation Currently saturations in 90s on RA Continue home medications (7) HTN (hypertension) Current Visit: No Status: Chronic Assessment and Plan: Blood pressure within reasonable limits. Continue to monitor DVT Prophylaxis: Heparin Internal Medicine: Result - Labs CBC & Chem 7: 07/15/19 09:34 07/15/19 09:34 Labs: Short CBC 07/15/19 Range/Units 09:34 WBC 11.5 H D (4.3-11.1) K/mcL Hgb 10.1 L (11.5-15.4) g/dL Hct 32.1 L (35.3-44.9) % Plt Count 231 (140-400) K/mcL Neutrophils # 8.5 (1.6-8.9) K/mcL BMP 07/15/19 09:34 Sodium 141 Potassium 3.7 Chloride 100 Carbon Dioxide 33 H BUN 27 H Creatinine 1.05 Glucose 140 H Calcium 8.7 Liver Function 07/15/19 Range/Units 09:34 Total Bilirubin 0.4 (0.3-1.0) mg/dL AST 17 (13-39) Units/L ALT 12 (7-52) Units/L Alkaline Phosphatase 57 (34-104) Units/L Albumin 3.0 L (3.5-5.7) g/dL Consult Discharge Plan - Plan Referrals: Radha Chinchilla, ALEJANDRO [Primary Care Provider] - (3) Non-healing surgical wound Qualifiers: Encounter type: initial encounter Qualified Code(s): T81.89XA - Other complications of procedures, not elsewhere classified, initial encounter (4) Sepsis Qualifiers: Sepsis type: sepsis due to unspecified organism Sepsis acute organ dysfunction status: unspecified Qualified Code(s): A41.9 - Sepsis, unspecified organism (5) DM type 2 (diabetes mellitus, type 2) Qualifiers: 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 exterminator insulin use: with [facility] use 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 complication status: without complication Qualified Code(s): E11.9 - Type 2 diabetes mellitus without complications; Z79.4 - termite technician (current) use of insulin (7) HTN (hypertension) Qualifiers: Hypertension type: essential hypertension Qualified Code(s): I10 - Essential (primary) hypertension
[2019-07-15] MEDS ORDERED: Isovue-370 500 ML BOTTLE IVP ONE (11:09)
[2019-07-15] MEDS ORDERED: 0.9 % Sodium Chloride 500 ML IVC ONE (11:17)
[2019-07-15] MEDS ORDERED: Vancomycin 1 EACH in 0.9 % Sodium Chloride 250 ML IVPB SCH (13:00)
[2019-07-16 04:31] LABS: Hematocrit 30.9 % (35.3-44.9); Hemoglobin 9.7 g/dL (11.5-15.4); Mean Corpuscular HGB Conc 31.4 g/dL (31.6-35.5); Mean Corpuscular Hemoglobin 28.3 pg (28.0-33.3); Mean Corpuscular Volume 90.1 fL (83.0-100.0); Mean Platelet Volume 12.1 fL (9.4-12.4); Platelet Count 211 K/mcL (140-400); Red Blood Count 3.43 M/mcL (3.82-4.97); Red Cell Distribution Width 13.6 % (11.5-14.5); White Blood Count 7.2 K/mcL (4.3-11.1)
[2019-07-16 04:53] LABS: BUN/Creatinine Ratio 35 (6-26); Blood Urea Nitrogen 23 mg/dL (8-23); Calcium 8.5 mg/dL (8.6-10.3); Carbon Dioxide 31 mEq/L (23-29); Chloride 105 mEq/L (98-107); Glucose 96 mg/dL (70-105); Osmolality,Calculated 304 (280-300); Potassium 3.6 mEq/L (3.5-5.1); Sodium 145 mEq/L (136-145); eGFR For African Americans > 60 (> 60); eGFR For Non-African Americans > 60 (> 60)
[2019-07-16] MEDS: *HR* Heparin 5,000 UNIT/ML VIAL SQ SCH ×2 (05:34→18:06)
[2019-07-16] MEDS: *HR* OxyCODONE Immed Rel 5 MG TABLET PO PRN ×2 (08:29→15:51)
[2019-07-16] MEDS: Insulin LISPRO 300 UNITS/3 ML VIAL SQ SCH ×3 (10:31→18:07)
[2019-07-16] MEDS: Cyanocobalamin (B-12) 1,000 MCG TABLET PO SCH ×2 (10:42→21:37)
[2019-07-16] MEDS: Cholecalciferol (D-3) 1,000 UNIT (25MCG) TABLET PO SCH (10:42)
[2019-07-16] MEDS: Ascorbic Acid 500 MG TABLET PO SCH ×2 (10:44→21:37)
[2019-07-16] MEDS: Aspirin Enteric Coated 81 MG Tablet PO SCH (10:44)
[2019-07-16] MEDS: Piperacillin/Tazobactam 3.375 GM in 0.9 % Sodium Chloride Mini Bag 100 ML IVPB SCH ×3 (10:46→23:48)
--- NOTE | 2019-07-16 11:41 | Podiatry Progress Note ---
Date of Encounter: 07/16/19 Time of Encounter: 11:00 - Assessment and Plan (1) Cellulitis of left foot Current Visit: Yes Status: Acute Assessment: -S/P left foot excisional debridement of wounds dorsal foot, heel, distal foot and submetarsal #5 removal of hardware left foot, application of wound vac, application PuraPlygraft, and application of PRP with Dr. Nicholson on 07/11/19 -Erythema of left foot -WBC 7.2, afebrile -ESR 75, CRP 37 -Wound cultures final Raoultella planticola -Blood cultures pending -07/03/19 tcp02 R ankle 37, R foot 29, L ankle 28, L foot 24 -07/03/19 ABIs bilaterally within normal limits -CT negative for OM or abscess -Wound vac in place, suction at 125mmHG, serosanginous drainage in canister 50cc Plan: -Patient on IV Zosyn and Vanc, ID following -Pain control, primary managing -Wound vac changed, see below -Keep left lower extremity elevated, keep heel off of bed, use pillow to elevate if patient continues to refuse heel medix boot -OR tomorrow with Dr. Nicholson I&D -NPO after midnight -Wound vac and dressing change Wound to dorsal aspect and heel left lower extremity cleaned with .9 NS and pat dry. Wound vac placed with white foam to dorsal wound, draped with tegaderm in usual fashion with window-pane dressing. 4x4's applied to heel. Covered LLE with Kerlix and offset tubing. Good seal noted and suction was continued at 125 mmHG setting. Subjective Interval history: Post op day #5 left foot excisional debridement of wounds dorsal foot 2zyy1kva7.5cm, heel 5hii2yra9.3cm, distal foot 3kgi5vbu0.3cm and 0.9cpf1dgn3.3cm and submet 5 1.4vjf4ktv0.3cm, removal of hardware left foot, application PuraPlygraft, and application of PRP by Dr. Nicholson on 07/11/2019 Patient is alert and oriented sitting in chair with no acute distress noted. She denies any chest pain, shortness of breath, or calf. Patient denies fever, chills, n/v/d. Objective - Vital Signs Vital Signs: Vital Signs Temp Pulse Resp BP Pulse Ox 07/16/19 11:33 97.7 F 71 17 121/71 93 07/16/19 07:05 97.6 F 70 17 128/72 93 07/16/19 04:12 97.5 F L 69 15 119/75 95 07/16/19 00:01 98.0 F 58 14 117/51 96 07/15/19 23:50 98.1 F 80 18 108/72 95 07/15/19 19:29 97.9 F 68 14 96/64 95 07/15/19 16:26 102/58 07/15/19 15:58 99.5 F 83 14 92 07/15/19 13:59 98.5 F 07/15/19 13:04 104/64 Intake and Output 07/15/19 07/16/19 07/16/19 23:59 07:59 15:59 Intake Total 100 / 670 100 / 460 360 / 460 Output Total 0 / 600 250 / 250 Balance 100 / 70 -150 / 210 360 / 210 Intake: IV Fluids 100 / 550 100 / 100 Zosyn 3.375 GM In 0.9 % Sodium 100 / 300 100 / 100 Chloride (Mini-Bag +) 100 ML @ 25 mls/hr IVPB Q8HR REPLACED BY [facility] Rx#: [id number] Oral 0 / 360 360 / 360 Output: Total Dialysis Output 250 / 250 Wound Drainage 0 / 0 Left Foot 0 / 0 Other: Meal Breakfast Percent of Meal Consumed 85% # Voids 1 1 Weight 77.1 kg Blood Glucose* 103 94 153 Patient Weight 07/16/19 23:59 Weight 77.1 kg - Exam Exam: Constitutional: Alert and oriented x 3 female, no acute distress noted Vascular: Unable to obtain pulses LLE, no pain with calf squeeze, skin cool to touch and pale Neurological: Normal plantar response Dermatological: wound posterior left heel-fibrotic with a small amount of granulation tissue, dorsal foot wound exposed bone and tendon medially, exposed tendon laterally, no graft in place, some evidence of bleeding (not active) 50cc of drainage in wound vac, distal forefoot just proximal to 4th digit another wound with PuraPly in place, plantar submet #5 another wound which is fibrotic tissue with some eschar Musculoskeletal: 4/5 muscle strength - Lab Result Diagrams: 07/16/19 03:31 07/16/19 03:31 Labs: Abnormal lab results WBC 11.5 K/mcL (4.3-11.1) H D 07/15/19 09:34 RBC 3.43 M/mcL (3.82-4.97) L 07/16/19 03:31 Hgb 9.7 g/dL (11.5-15.4) L 07/16/19 03:31 Hct 30.9 % (35.3-44.9) L 07/16/19 03:31 MCH 27.5 pg (28.0-33.3) L 07/12/19 09:08 MCHC 31.4 g/dL (31.6-35.5) L 07/16/19 03:31 Neutrophils # 9.0 K/mcL (1.6-8.9) H 07/10/19 12:52 ESR 75 mm/hr (0-15) H 07/10/19 12:52 Potassium 3.3 mEq/L (3.5-5.1) L 07/11/19 03:56 Carbon Dioxide 31 mEq/L (23-29) H 07/16/19 03:31 BUN 27 mg/dL (8-23) H 07/15/19 09:34 Creatinine 0.52 mg/dL (0.60-1.20) L 07/14/19 03:09 Est GFR (Non-Af Amer) 52 (> 60) L 07/15/19 09:34 BUN/Creatinine Ratio 35 (6-26) H 07/16/19 03:31 Glucose 140 mg/dL (70-105) H 07/15/19 09:34 POC Glucose 127 mg/dL (70-99) H 07/15/19 17:18 Hemoglobin A1c 7.4 % (-5.6) H 07/14/19 03:09 Calculated Osmolality 304 (280-300) H 07/16/19 03:31 Calcium 8.5 mg/dL (8.6-10.3) L 07/16/19 03:31 C-Reactive Protein 37 mg/L (Less than 10) H 07/10/19 12:52 Serum Total Protein 5.8 g/dL (6.4-8.9) L 07/15/19 09:34 Albumin 3.0 g/dL (3.5-5.7) L 07/15/19 09:34 Vancomycin Trough 14 mcg/mL (5-10) H 07/13/19 11:54 Microbiology, Last 48 Hours 07/11/19 15:40 Anaerobic Culture - Preliminary Left Foot At this time, no anaerobic growth is present. The culture will be finalized after 5 days of incubation. 07/15/19 13:05 Blood Culture - Preliminary Peripheral Venipuncture Culture is incubating and being continuously monitored for growth. Final report to follow. 07/15/19 13:05 Blood Culture - Preliminary Peripheral Venipuncture Culture is incubating and being continuously monitored for growth. Final report to follow. 07/10/19 12:52 Blood Culture - Final Peripheral Venipuncture No growth. Final report. 07/10/19 12:52 Blood Culture - Final Peripheral Venipuncture No growth. Final report. Consult Discharge Plan - Plan Referrals: Radha Chinchilla, CHRONOMETER ASSEMBLER [Primary Care Provider] -
[2019-07-16] MEDS: Fluticasone Propionate Nasal 50 MCG/SPRAY BOTTLE NS SCH ×2 (12:14→21:37)
[2019-07-16] MEDS ORDERED: Aminoglycoside Consult 1 EACH MC ONE (12:54)
--- NOTE | 2019-07-16 13:10 | Internal Med Progress Note ---
Hospitalist Progress Note - Encounter Date of Encounter: 07/16/19 Time of Encounter: 13:08 - Subjective Interval History: Feeling well this morning. Abdominal pain has resolved. Podiatry planning to take patient back to the OR tomorrow for I&D. - Exam Vitals: Temp Pulse Resp BP Pulse Ox 97.7 F 71 17 121/71 93 07/16/19 11:33 07/16/19 11:33 07/16/19 11:33 07/16/19 11:33 07/16/19 11:33 Exam: General: Ill-appearing and writhing in pain HEENT: No erythema of posterior pharynx. No exudates. Lymphatics: No mandibular or cervical lymphadenopathy Cardiovascular: RRR. No murmurs. No chest wall tenderness. Lungs: Clear to auscelltation bilaterally. Regular chest rise. Abdomen: Non-tender. No rebound or gaurding. Nl bowel sounds. Extremities: RLE with surgical dressing in place c/d/i Skin: No rahses, abrasions, or contusions. Nl cap refill. Psych: Nl attention. A&Ox3 Neuro: automotive service management teacher II-XII intact. 5/5 strength. Sensation to light touch and pinprick intact. - Assessment and Plan (1) Cellulitis of left foot Current Visit: Yes Status: Acute Assessment and Plan: Patient with history of uncontrolled type 2 diabetes and PAD presented with c ellulitis of left foot status post left foot excisional debridement of wounds dorsal foot, heel, distal foot and submetarsal #5 removal of hardware left foot, application of wound vac, application PuraPlygraft, and application of PRP with Dr. Nicholson on 07/11/19. -Culture growing Raoultella planticola - appears to be pansensitive. We will discuss with ID today regarding further de-escalation -Patient found to have ischemia of left foot not correctable with either endovascular therapy or bypass grafting. May need amputation in future if wound fails to heal PLAN: - Back to OR tomorrow for I&D - Zosyn + Vancomycin - Pain control - PICC placement order placed - Encourage smoking cessation - Wound care per podiatry: Keep left lower extremity elevated, keep heel off of bed, use pillow to elevate if patient continues to refuse heel medix boot MWF wound vac change, puraply graft in place, do not remove when completing dressing change (2) Non-healing surgical wound Current Visit: Yes Status: Chronic Assessment and Plan: Found to have PAD this hospitalization that is non-amenable to vascular intervention. As a result, lower extremity wound may be difficult to heal and may result in amputation discussed above. - Continue aspirin - Follow up with vascular surgery at time of discharge (3) Sepsis Current Visit: Yes Status: Resolved Assessment and Plan: Presented septic and has received IV fluids and antibiotics. Now resolved. (4) DM type 2 (diabetes mellitus, type 2) Current Visit: No Status: Chronic Assessment and Plan: Apparently used to be on insulin and metformin in the past but is on neither currently outpatient. HgA1c of 7.4. - Plan for metformin therapy for discharge (5) COPD exacerbation Current Visit: No Status: Resolved Assessment and Plan: Not in exacerbation. - Continue home medications (6) HTN (hypertension) Current Visit: No Status: Chronic Assessment and Plan: Blood pressure within reasonable limits. - Continue to monitor DVT Prophylaxis: Heparin Internal Medicine: Result - Labs CBC & Chem 7: 07/16/19 03:31 07/16/19 03:31 Labs: Short CBC 07/16/19 Range/Units 03:31 WBC 7.2 (4.3-11.1) K/mcL Hgb 9.7 L (11.5-15.4) g/dL Hct 30.9 L (35.3-44.9) % Plt Count 211 (140-400) K/mcL BMP 07/16/19 03:31 Sodium 145 Potassium 3.6 Chloride 105 Carbon Dioxide 31 H BUN 23 Creatinine 0.65 Glucose 96 Calcium 8.5 L - Impressions Impressions Abdomen/Pelvis CT 07/15/19 11:09 IMPRESSION: No acute process in the abdomen or pelvis. Fatty liver with areas of diminished attenuation, questioning more pronounced fatty change versus underlying hepatic masses. MRI of the liver would prove helpful for complete assessment. Nonobstructing nephrolithiasis. Stable benign right adrenal adenoma. Benign renal cysts. Status post gastric and small bowel surgery. No evidence of bowel obstruction. D/ / 07/15/2019 13:19:06 Js [facility] Interpreting Provider: Js Borja MD Consult Discharge Plan - Plan Referrals: Radha Chinchilla, ALEJANDRO [Primary Care Provider] - (2) Non-healing surgical wound Qualifiers: Encounter type: initial encounter Qualified Code(s): T81.89XA - Other complications of procedures, not elsewhere classified, initial encounter (3) Sepsis Qualifiers: Sepsis type: sepsis due to unspecified organism Sepsis acute organ dysfunction status: unspecified Qualified Code(s): A41.9 - Sepsis, unspecified organism (4) DM type 2 (diabetes mellitus, type 2) Qualifiers: 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
--- NOTE | 2019-07-16 14:15 | Vascular/[facility] Progress Note ---
Date of Encounter: 07/16/19 Time of Encounter: 13:15 - Assessment and plan (1) Non-healing surgical wound Current Visit: Yes Status: Chronic Ongoing aggressive wound care and antibiotic coverage for temps at left foot wound salvage. Vascular surgery will remain available as needed. Qualifiers: Encounter type: subsequent encounter Qualified Code(s): T81.89XD - Other complications of procedures, not elsewhere classified, subsequent encounter - Subjective Interval history: Patient has no new complaints. Patient had uneventful weekend. Patient continue s on aggressive wound care with dual coverage IV antibiotics, active wound care, and wound VAC to left foot. Patient denies any specific pain to the left toes or foot. Vital Signs, Last 4 Hours Temp Pulse Resp BP Pulse Ox 07/16/19 11:33 97.7 F 71 17 121/71 93 - Physical Examination General: Present: Conversant, No Apparent Distress HEENT: Present: Atraumatic Vascular: Present: Other (Wound VAC in position over left foot. Dry dressing surrounding foot and ankle. Toes are exposed which are warm. Patient has no palpable pulses to the left foot and ankle.) Results 07/16/19 03:31 07/16/19 03:31 Lab Results, Last 24 hours 07/16/19 07/16/19 03:31 03:31 WBC 7.2 Hgb 9.7 L Hct 30.9 L Plt Count 211 Sodium 145 Potassium 3.6 Chloride 105 Carbon Dioxide 31 H BUN 23 Creatinine 0.65 Glucose 96 Calcium 8.5 L Consult Discharge Plan - Plan Referrals: Radha Chinchilla, PSYCH THERAPIST [Primary Care Provider] -
--- NOTE | 2019-07-16 15:47 | Infectious Disease Progress No ---
ID Progress Note Date of Encounter: 07/16/19 Time of Encounter: 15:44 - Subjective Subjective: Patient seen and examined. clinically feels okay. No chest pain, no shortness of breath no cough no diarrhea no urinary symptoms. VS noted labs reviewed - Objective CBC & Chem 7: 07/16/19 03:31 07/16/19 03:31 - Exam Vitals: Temp Pulse Resp BP Pulse Ox 97.7 F 71 17 121/71 93 07/16/19 11:33 07/16/19 11:33 07/16/19 11:33 07/16/19 11:33 07/16/19 11:33 Exam: GENERAL: Comfortable. Laying in bed NAD HEENT: LIDYA, EOMI LUNGS: Good air sounds bilaterally, no wheezing or rhonchi CV: RRR, S1 S2 ABDOMEN: Soft, nontender, + bowel sounds EXT: surgically wrapped NEURO: A&OX3; no focal deficit - Assessment and Plan (1) Cellulitis of left foot Current Visit: Yes Status: Acute Status post left foot fracture 05/03/2019 requiring open reduction internal fixation 06/06/2019 necrotic skin tissue being seen by wound care 07/03/2019 arterial study was "well-maintained at rest" Transcutaneous monitoring 07/03/2019 right and left leg is not consistent with healing. Wound was not improving CT left foot 07/10/2019: Multiple foci of air about the joint and hardware with overlying soft tissue irregularity concerning for infection 07/11/2019 Status post left foot debridement, removal of hardware Intra-Op cultures pending but Gram stain showed Raoultella planticola Patient started empirically on vancomycin and Zosyn SNOMED Code(s): 123539474 (2) DM type 2 (diabetes mellitus, type 2) Current Visit: No Status: Chronic Qualifiers: 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 terminal manager insulin use: with terminal manager use 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 complication status: without complication Qualified Code(s): E11.9 - Type 2 diabetes mellitus without complications; Z79.4 - terminal supervisor (current) use of insulin SNOMED Code(s): 80781328 (3) History of myocardial infarction Current Visit: No Status: Acute SNOMED Code(s): 877812888 (4) CAD (coronary artery disease) Current Visit: No Status: Acute Qualifiers: Coronary Disease-Associated Artery/Lesion type: [place] artery [place] vs. transplanted heart: [place] heart Associated angina: without angina Qualified Code(s): I25.10 - Atherosclerotic heart disease of [place] coronary artery wit hout angina pectoris SNOMED Code(s): 94529262 (5) Hyperlipidemia Current Visit: No Status: Chronic Qualifiers: Hyperlipidemia type: unspecified Qualified Code(s): E78.5 - Hyperlipidemia, unspecified SNOMED Code(s): 30112498 - Recommendations Recommendations: cultures so far growing raoultella planticola pansensitive anaerobic cultures no growth to date consider dc vancomycin continue zosyn for now but will likely deescalate to rocpehin 2 gram daily duration of treatment [address] picc line weekly cbc, bmp, esr, crp while on treatment Consult Discharge Plan - Plan Referrals: Radha Chinchilla, [facility] NURSE [Primary Care Provider] -
[2019-07-17] MEDS: *HR* OxyCODONE Immed Rel 5 MG TABLET PO PRN ×2 (02:36→21:00)
--- NOTE | 2019-07-17 02:48 | Anesthesia Evaluation PreOp ---
Date of Encounter: 07/17/19 Time of Encounter: 07:02 - Past History Planned Operation: Left Foot Wound Debridement Cardiac History: CHF, HTN, Hyperlipidemia, Cardiac Surgery (CABG x 3 in 2014) Pulmonary History: Smoker, COPD, MISHA Dx (does not use CPAP) OTOLARYNGOLOGY REP History: Denies Any Significant HX Other Medical History: Diabetes Type II, GERD Anesthesia History: No Prior Anesthetic Complications, Past Anesthesia (hysterectomy) Alcohol Use: none Drug use: none Medications and Allergies Albuterol Neb [Proventil Neb] 2.5 mg IH Q6HR PRN 10/02/16 [History] Mv W-Ca/Iron/FA/Lutein/Hrb#179 [Sung Multivit For Women Caplet] 1 tab PO DAILY 10/02/16 [History] Nitroglycerin [Nitrostat] 0.4 mg SL Q5M PRN 12/10/17 [History] Ascorbic Acid [Vitamin C] 500 mg PO BID 04/03/19 [History] Ferrous Sulfate 325 mg PO BID 04/03/19 [History] Albuterol Sulfate [Proventil Inhaler] 2 puff IH Q4-6H PRN 05/03/19 [History] Alprazolam [Xanax] 2 mg PO TID PRN 05/03/19 [History] Aspirin [Adult Aspirin Regimen] 81 mg PO DAILY 05/03/19 [History] Cyanocobalamin (Vitamin B-12) [Vitamin B-12] 1,000 mcg PO BID 05/03/19 [History] Fluticasone Propionate Nasal [Flonase] 1 spray NS BID 05/03/19 [History] Cholecalciferol (D-3) [Vitamin D] 1,000 unit PO DAILY #30 tablet 05/25/19 [Rx] HYDROcodone/Acet 7.5/325 mg [[place] 7.5-325 mg] 1 tab PO Q6HR PRN 07/10/19 [History] Amoxicillin/Clavulanate [Augmentin] 1 tab PO BID 07/11/19 [History] Lisinopril [Zestril] 5 mg PO DAILY 07/11/19 [History] Omeprazole [PriLOSEC] 40 mg PO DAILY PRN 07/11/19 [History] Ondansetron HCl 8 mg PO DAILY PRN 07/11/19 [History] Allergy/AdvReac Type Severity Reaction Status Date / Time No Known Allergies Allergy Verified 05/03/19 18:37 - Meds/Allergy Pre-op Review Medications Reviewed: Yes Allergies Reviewed: Yes Beta Blockers on Current Med List: No Anesthesia Results - Labs 07/17/19 02:40 07/17/19 02:40 - Imaging EKG: report reviewed (05/02/2019 Sinus tachycardia Ventricular ectopy Anteroseptal infarct, old) Additional studies: 05/02/2019 Echo Impressions: LVEF 50-55%. Mild left ventricular diastolic dysfunction. Normal right ventricular structure and function. Mild tricuspid regurgitation. No pulmonary hypertension. Anesthesia Exam Vital Signs/O2 Sat, Most Current Temp Pulse Resp BP Pulse Ox 97.8 F 67 15 119/74 92 07/16/19 23:05 07/16/19 23:05 07/16/19 23:05 07/16/19 23:05 07/16/19 23:05 Height: 5'4''/1.63m Weight: 169 lbs/77.1 kg NPO (# of Hours): 8 Pain Scale: 5 Pain Scale Used: Numeric (1 - 10) - HEENT Pupil (Motor): EOMI Mallampati: II Teeth: Normal, Missing Oral Opening: Greater than 3 - OTOLARYNGOLOGY REP LOC: Oriented OTOLARYNGOLOGY REP Motor: Normal RUE, Normal LUE, Normal RLE, Normal LLE, Normal Face OTOLARYNGOLOGY REP Sensory: Normal: RUE, LUE, RLE, LLE, Face - Cardiac Rhythm: Regular Murmur: None - Pulmonary Breath Sounds: bilateral Clear Respiratory Effort: Symmetrical Anesthesia Assess/Plan ASA Score: 3 Level of consciousness: Cooperative, Oriented, Tranquil Anesthetic Plan: Regional Nerve Block, MAC Regional Nerve Block Plan: Femoral, Popliteal Monitoring Plan: Standard Monitors Recovery Plan: PACU
[2019-07-17 03:13] LABS: Hemoglobin 10.2 g/dL (11.5-15.4); Mean Corpuscular HGB Conc 31.9 g/dL (31.6-35.5); Mean Corpuscular Hemoglobin 27.9 pg (28.0-33.3); Mean Corpuscular Volume 87.7 fL (83.0-100.0); Mean Platelet Volume 11.7 fL (9.4-12.4); Platelet Count 250 K/mcL (140-400); Red Blood Count 3.65 M/mcL (3.82-4.97); Red Cell Distribution Width 13.4 % (11.5-14.5); White Blood Count 6.4 K/mcL (4.3-11.1)
[2019-07-17 03:14] LABS: BUN/Creatinine Ratio 22 (6-26); Blood Urea Nitrogen 15 mg/dL (8-23); Calcium 8.6 mg/dL (8.6-10.3); Carbon Dioxide 28 mEq/L (23-29); Chloride 105 mEq/L (98-107); Glucose 101 mg/dL (70-105); Osmolality,Calculated 295 (280-300); Potassium 3.6 mEq/L (3.5-5.1); Sodium 142 mEq/L (136-145); eGFR For African Americans > 60 (> 60); eGFR For Non-African Americans > 60 (> 60)
[2019-07-17] MEDS: *HR* Heparin 5,000 UNIT/ML VIAL SQ SCH ×2 (05:00→18:15)
[2019-07-17] MEDS ORDERED: Vancomycin 1,000 MG, 0.9 % Sodium Chloride 1,000 ML IR ONE ×2 (06:00→16:57)
[2019-07-17] MEDS: Insulin LISPRO 300 UNITS/3 ML VIAL SQ SCH ×2 (07:57→18:07)
[2019-07-17] MEDS: Cholecalciferol (D-3) 1,000 UNIT (25MCG) TABLET PO SCH (08:12)
[2019-07-17] MEDS: Cyanocobalamin (B-12) 1,000 MCG TABLET PO SCH ×2 (08:13→21:00)
[2019-07-17] MEDS: Ascorbic Acid 500 MG TABLET PO SCH ×2 (08:13→20:59)
[2019-07-17] MEDS: Piperacillin/Tazobactam 3.375 GM in 0.9 % Sodium Chloride Mini Bag 100 ML IVPB SCH ×3 (08:14→23:51)
[2019-07-17] MEDS: Fluticasone Propionate Nasal 50 MCG/SPRAY BOTTLE NS SCH (08:16)
[2019-07-17] MEDS: Aspirin Enteric Coated 81 MG Tablet PO SCH (08:18)
[2019-07-17] MEDS ORDERED: Insulin LISPRO 300 UNITS/3 ML VIAL SQ SCH (12:00)
--- NOTE | 2019-07-17 13:52 | Internal Med Progress Note ---
Hospitalist Progress Note - Encounter Date of Encounter: 07/17/19 Time of Encounter: 08:30 - Subjective Interval History: No major events overnight. Patient was seen this a.m. she denied fever, chills or night sweats. She has no nausea, vomiting or abdominal pain. Patient denied chest pain, shortness of breath or palpitation. - Exam Vitals: Temp Pulse Resp BP Pulse Ox 97.6 F 80 16 155/69 94 07/17/19 11:18 07/17/19 11:18 07/17/19 11:18 07/17/19 11:18 07/17/19 11:18 Exam: General: Ill-appearing and writhing in pain HEENT: No erythema of posterior pharynx. No exudates. Lymphatics: No mandibular or cervical lymphadenopathy Cardiovascular: RRR. No murmurs. No chest wall tenderness. Lungs: Clear to auscelltation bilaterally. Regular chest rise. Abdomen: Non-tender. No rebound or gaurding. Nl bowel sounds. Extremities: LLE with surgical dressing in place c/d/i, wound vac with yellowish discharge Skin: No rahses, abrasions, or contusions. Nl cap refill. Psych: Nl attention. A&Ox3 Neuro: intervention analyst II-XII intact. 5/5 strength. Sensation to light touch and pinprick intact. - Assessment and Plan (1) Cellulitis of left foot Current Visit: Yes Status: Acute (2) COPD exacerbation Current Visit: Yes Status: Chronic (3) HTN (hypertension) Current Visit: Yes Status: Chronic (4) DM type 2 (diabetes mellitus, type 2) Current Visit: Yes Status: Chronic (5) Sepsis Current Visit: Yes Status: Resolved (6) Non-healing surgical wound Current Visit: Yes Status: Chronic - Summary of Assessment and Plan Summary of Assessment and Plan: 69-year-old female with history of type II DM, CAD, COPD, tobacco abuse, recent left lower extremity fracture and hardware placement who was admitted to the hospital with lower extremity cellulitis. Her symptoms were managed as following: LLE Cellulitis: - s/P left foot excisional debridement of wounds dorsal foot, heel, distal foot and submetarsal #5 removal of hardware left foot, application of wound vac, a pplication PuraPlygraft, and application of PRP with Dr. Nicholson on 07/11/19 - CT of the foot revealed multiple foci of air about the joint and hardware with overlying soft tissue irregularity concerning for infection. - Wound cultures is growing Raoultella planticola, ID on board, continue Dyllan. - Today for I&D per podiatry. Pain management with [place] for moderate pain and oxycodone for severe pain Sepsis: - Secondary to above. Management as above. Patient is afebrile and hemodynamically stable. PAD: - HAd angiogram 07/12, as per reports left posterior tibial, left anterior tibia, left dorsalis pedis and right anterior tibial was occluded but left peroneal artery was patent and was providing the collateral flow to the foot with the formation of the plantar arteries. No further intervneions. - Continue aspirin, will add Lipitor. HTN: - Continue his enalapril Type II DM: - Accu-Chek and sliding scale coverage DVT prophylaxis: Subcutaneous heparin - Time Spent with Patient Total time spent is greater than 50% in coordination of care (as documented) at patient's floor/unit and/or counseling patient: Plan of Care Discussed with: patient Internal Medicine: Result - Labs CBC & Chem 7: 07/17/19 02:40 07/17/19 02:40 Labs: Short CBC 07/17/19 Range/Units 02:40 WBC 6.4 (4.3-11.1) K/mcL Hgb 10.2 L (11.5-15.4) g/dL Hct 32.0 L (35.3-44.9) % Plt Count 250 (140-400) K/mcL BMP 07/17/19 02:40 Sodium 142 Potassium 3.6 Chloride 105 Carbon Dioxide 28 BUN 15 Creatinine 0.67 Glucose 101 Calcium 8.6 Consult Discharge Plan - Plan Referrals: Radha Chinchilla, GRAB HOOKER [Primary Care Provider] - (3) HTN (hypertension) Qualifiers: Hypertension type: essential hypertension Qualified Code(s): I10 - Essential (primary) hypertension (4) DM type 2 (diabetes mellitus, type 2) Qualifiers: 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 [facility]ci insulin use: with assistant terminal manager use 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 complication status: without complication Qualified Code(s): E11.9 - Type 2 diabetes mellitus without complications; Z79.4 - assistant terminal manager (current) use of insulin (5) Sepsis Qualifiers: Sepsis type: sepsis due to unspecified organism Sepsis acute organ dysfunction status: unspecified Qualified Code(s): A41.9 - Sepsis, unspecified organism (6) Non-healing surgical wound Qualifiers: Encounter type: subsequent encounter Qualified Code(s): T81.89XD - Other complications of procedures, not elsewhere classified, subsequent encounter
[2019-07-17] MEDS ORDERED: *HR* OxyCODONE Immed Rel 5 MG TABLET PO PRN (14:01)
[2019-07-17] MEDS ORDERED: *HR* HYDROcodone/Acet 5/325 mg TABLET PO PRN ×2 (14:01→16:57)
--- NOTE | 2019-07-17 14:21 | Infectious Disease Progress No ---
ID Progress Note Date of Encounter: 07/17/19 Time of Encounter: 14:19 - Subjective Subjective: Patient seen and examined. clinically feels okay. No chest pain, no shortness of breath no cough no diarrhea no urinary symptoms. VS noted labs reviewed - Objective CBC & Chem 7: 07/17/19 02:40 07/17/19 02:40 - Exam Vitals: Temp Pulse Resp BP Pulse Ox 97.6 F 80 16 155/69 94 07/17/19 11:18 07/17/19 11:18 07/17/19 11:18 07/17/19 11:18 07/17/19 11:18 Exam: GENERAL: Comfortable. Laying in bed NAD HEENT: LIDYA, EOMI LUNGS: Good air sounds bilaterally, no wheezing or rhonchi CV: RRR, S1 S2 ABDOMEN: Soft, nontender, + bowel sounds EXT: surgically wrapped NEURO: A&OX3; no focal deficit - Assessment and Plan (1) Cellulitis of left foot Current Visit: Yes Status: Acute Status post left foot fracture 05/03/2019 requiring open reduction internal fixation 06/06/2019 necrotic skin tissue being seen by wound care 07/03/2019 arterial study was "well-maintained at rest" Transcutaneous monitoring 07/03/2019 right and left leg is not consistent with healing. Wound was not improving CT left foot 07/10/2019: Multiple foci of air about the joint and hardware with overlying soft tissue irregularity concerning for infection 07/11/2019 Status post left foot debridement, removal of hardware Intra-Op cultures pending but Gram stain showed Raoultella planticola Patient started empirically on vancomycin and Zosyn SNOMED Code(s): 997395316 (2) DM type 2 (diabetes mellitus, type 2) Current Visit: Yes Status: Chronic Qualifiers: 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 correction insulin use: with correction use 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 complication status: without complication Qualified Code(s): E11.9 - Type 2 diabetes mellitus without complications; Z79.4 - [facility] (current) use of insulin SNOMED Code(s): 26626667 (3) History of myocardial infarction Current Visit: No Status: Acute SNOMED Code(s): 798405945 (4) CAD (coronary artery disease) Current Visit: No Status: Acute Qualifiers: Coronary Disease-Associated Artery/Lesion type: [place] artery [place] vs. transplanted heart: [place] heart Associated angina: without angina Qualified Code(s): I25.10 - Atherosclerotic heart disease of [place] coronary artery wit hout angina pectoris SNOMED Code(s): 41241593 (5) Hyperlipidemia Current Visit: No Status: Chronic Qualifiers: Hyperlipidemia type: unspecified Qualified Code(s): E78.5 - Hyperlipidemia, unspecified SNOMED Code(s): 43400137 - Recommendations Recommendations: Continue Zosyn for now Await intraoperative findings from today Duration of treatment at least [address] a PICC line On discharge we will consider IV Rocephin 2 g daily plus by mouth Flagyl Patient will need weekly CBC, BMP, ESR, CRP while on antibiotics Patient need to follow-up with us in clinic in 2 weeks Consult Discharge Plan - Plan Referrals: Radha Chinchilla, PLATE SHEAR OPERATOR [Primary Care Provider] -
[2019-07-17] MEDS ORDERED: Ropivacaine/PF 0.5% 30 ML VIAL ONE (14:24)
[2019-07-17] MEDS ORDERED: *HR* Midazolam HCl 2 MG/2 ML VIAL ONE (14:24)
[2019-07-17] MEDS ORDERED: *HR* Propofol 200 MG/20 ML VIAL IVP ONE (14:28)
[2019-07-17] MEDS ORDERED: Lidocaine 1% 20 ML MDV ONE (14:37)
[2019-07-17] MEDS ORDERED: Calcium Gluconate 1,000 MG/10 ML VIAL ONE (14:47)
[2019-07-17] MEDS ORDERED: Propofol 500 MG/50 ML INFUS..BTL ONE ×2 (14:49→16:15)
--- NOTE | 2019-07-17 14:52 | Operative Note ---
Date of procedure: 07/17/19 Pre-op diagnosis: left heel wound 3mx3cm, dorsal foot wound, possible osteomyelitis Post-op diagnosis: same Procedure: left debridement of calcaneus bone soft tissue rearrangement for closure of wound 1st metatarsal bone debridement application of graft Implants: integra bilayer wound matrix Complications: none Anesthesia: MAC Local Anesthetics: 0.25% Sensorcaine HCL with Epinephrine 1:200,000 SubQ (cc) Surgeon: Caio Nicholson Was there an sales operations assistant present: No Estimated blood loss (cc): 15 Specimen: left 1st met bone, heel bone-pathology Condition: stable Disposition: PACU Procedure in Detail: Indications: 69 year old female with wounds on the left foot distally both dorsally and plantar, dorsal midfoot and heel being brought to the operating room for the above procedures. Discussed patient with vascular, Dr. Agee, patient has poor prognosis to heal the posterior heel wound and only has a small vessel supply to the dorsum of the foot. Patient wanted to try to salvage her left foot and did not want to undergo a below the knee amputation at this time. It was made clear to the patient that there are no guarantees as to the outcome and she could still end up with a below the knee amputation despite having surgery to try to salvage her foot. Nature of the above procedures, risks versus benefits potential complications consequences of surgery and her condi tion was discussed at length. Informed consent in that signed patient was taken from the preoperative holding area and placed on the operating room table in the prone position and the left foot was scrubbed prepped and draped in the usual sterile fashion and the following procedures began. Left calcaneus debridement of bone. Left soft tissue rearrangement for flap closure of posterior heel wound. Attention was directed the posterior aspect of the patient's left heel where a wound was present which had no erythema or signs of infection. A #15 blade was used to make an incision proximal to the wound and tangential to the wound as well as distally. The soft tissue was freed from the calcaneus posteriorly and approximately 1 fingerbreadth posterior to the subtalar joint the sagittal saw was used to resect bone and the bone was contoured and rasped until smooth. Some of the bone was sent to pathology for evaluation. Upon flushing the site there was no devitalized tissue present and bone had smooth contour. The skin which had been cut tangential to the wound was then flapped and the skin edges approximated to close the wound and 2-0 Vicryl was utilized in the deep and subcutaneous tissues and 2-0 Prolene was used to reapproximate the skin. With the wound closed a bandage was applied and the patient was flipped into the supine position and the bandage removed and the foot was again prepped with Betadine. Left first metatarsal debridement of bone. Attention was directed to the dorsal foot wound which did have exposed first metatarsal bone present. The sagittal saw was used to debride heart of the first metatarsal bone which was exposed and the bone was sent to pathology. No devitalized tissue was present surrounding the bone and there was bleeding tissue present. The patient did have an increased amount of granulation tissue on the dorsal foot compared to previous. The decision was made to proceed with the next procedure. Application of graft left foot. With no devitalized tissue present the [place] debridement wand was utilized to remove any biofilm and prepare the wound for application of graft down to the deep fascia and tendon layers. Some of the tendon which was desiccated, extensor tendon was excised. Next the Integra graft was applied using standard technique after applying PRP to the wound base as well as to the graft and the graft was sutured in place with 2-0 Prolene. A wound VAC using white foam was then applied and adequate seal was present. The Integra wound graft was also applied to the distal wounds and the plantar wounds of the forefoot. The patient tolerated the anesthesia and the procedure well and a padded bandage was applied with Adaptic over the posterior heel wound ABDs and gauze and Kerlix. The patient will return to the floor where she will continue IV antibiotics.
[2019-07-17] MEDS ORDERED: *HR* FentaNYL (PF) 100 MCG/2 ML VIAL ONE (15:11)
[2019-07-17] MEDS ORDERED: ALPRAZolam 1 MG TABLET PO PRN (16:57)
[2019-07-17] MEDS ORDERED: 0.9 % Sodium Chloride 500 ML IVC PRN (16:57)
[2019-07-17] MEDS ORDERED: Dextrose Gel 15 GM/37.5 ML TUBE PO PRN ×2 (16:57)
[2019-07-17] MEDS ORDERED: Nitroglycerin 0.4 MG TAB.SUBL SL PRN (16:57)
[2019-07-17] MEDS ORDERED: Naloxone 0.4 MG/ML INJ IVP PRN (16:57)
[2019-07-17] MEDS ORDERED: Ondansetron 4 MG/2 ML VIAL IVP PRN (16:57)
[2019-07-17] MEDS ORDERED: Bisacodyl 10 MG RECTAL SUPPOSITORY RC PRN (16:57)
[2019-07-17] MEDS ORDERED: D5% in Water 1,000 ML IVC PRN (16:57)
[2019-07-17] MEDS ORDERED: Albuterol 2.5 MG/3 ML NEBULIZER IH PRN (16:57)
[2019-07-17] MEDS ORDERED: *HR* Dextrose 50 % in Water (Syg) 50 ML SYRINGE IVP PRN (16:57)
--- NOTE | 2019-07-17 17:38 | Anesthesia Procedures ---
Date of Encounter: 07/17/19 Time of Encounter: 14:40 Procedures: Anesthesia - Nerve Block Procedure Date: 07/17/19 Time: 14:40 Allergies/Adv Reactions: Allergies No Known Allergies Allergy (Verified 05/03/19 18:37) Pre-op Diagnosis: left foot wound Surgical Procedure: left foot debridement wound and bone Checklist: Correct Patient Identifier, Correct procedure, History checked Correct side: Left Blood Thinner: No Monitor Applied: EKG, BP, Pulse Oximetry Supplemental Oxygen via Nasal Cannula (L/min): 2 Sedation: Versed (mg): 2 Pre-op Neuro Deficits: No Block Type: Popliteal Catheter placed: No Sterile Technique: Yes Ultrasound used: Yes Anatomy identified: Yes Visual spread of Local: Yes Neuro Stimulation: No Blood on Needle Aspiration: No Smooth Injection of Local: Yes Pain with Injection of Local: No Prep: Chlorhexadine Needle: 21 x 100 mm Stimuplex Local: Ropivacaine (0.5%), Other (and decadron) Volume (cc): 30 Number of Attempts: 1 Complications: None/effective block Vitals: see nursing vitals Comments: block performed per Cezar BETTENCOURT under supervision of [place] Sandra CRNA
[2019-07-18] MEDS: Fluticasone Propionate Nasal 50 MCG/SPRAY BOTTLE NS SCH ×3 (00:03→20:14)
[2019-07-18] MEDS: Insulin LISPRO 300 UNITS/3 ML VIAL SQ SCH ×3 (00:43→17:03)
[2019-07-18 05:13] LABS: Hematocrit 30.5 % (35.3-44.9); Hemoglobin 9.6 g/dL (11.5-15.4); Mean Corpuscular HGB Conc 31.5 g/dL (31.6-35.5); Mean Corpuscular Hemoglobin 27.5 pg (28.0-33.3); Mean Corpuscular Volume 87.4 fL (83.0-100.0); Mean Platelet Volume 11.5 fL (9.4-12.4); Platelet Count 252 K/mcL (140-400); Red Blood Count 3.49 M/mcL (3.82-4.97); Red Cell Distribution Width 13.2 % (11.5-14.5); White Blood Count 7.5 K/mcL (4.3-11.1)
[2019-07-18 05:32] LABS: BUN/Creatinine Ratio 25 (6-26); Blood Urea Nitrogen 15 mg/dL (8-23); Calcium 8.1 mg/dL (8.6-10.3); Carbon Dioxide 31 mEq/L (23-29); Chloride 101 mEq/L (98-107); Glucose 366 mg/dL (70-105); Osmolality,Calculated 304 (280-300); Potassium 3.7 mEq/L (3.5-5.1); Sodium 139 mEq/L (136-145); eGFR For African Americans > 60 (> 60); eGFR For Non-African Americans > 60 (> 60)
[2019-07-18] MEDS: *HR* Heparin 5,000 UNIT/ML VIAL SQ SCH ×2 (05:53→17:03)
[2019-07-18] MEDS ORDERED: Insulin LISPRO 300 UNITS/3 ML VIAL SQ SCH ×3 (07:30→21:00)
[2019-07-18] MEDS: Piperacillin/Tazobactam 3.375 GM in 0.9 % Sodium Chloride Mini Bag 100 ML IVPB SCH ×2 (09:15→17:02)
[2019-07-18] MEDS: Ascorbic Acid 500 MG TABLET PO SCH ×2 (09:18→20:14)
[2019-07-18] MEDS: Cholecalciferol (D-3) 1,000 UNIT (25MCG) TABLET PO SCH (09:19)
[2019-07-18] MEDS: Aspirin Enteric Coated 81 MG Tablet PO SCH (09:19)
[2019-07-18] MEDS: Cyanocobalamin (B-12) 1,000 MCG TABLET PO SCH ×2 (09:19→20:14)
--- NOTE | 2019-07-18 13:04 | Internal Med Progress Note ---
Hospitalist Progress Note - Encounter Date of Encounter: 07/18/19 Time of Encounter: 10:50 - Subjective Interval History: No major events overnight. Patient was seen this a.m. SHe denied fever, chills or night sweats. SHe has no nausea, vomiting or abdominal pain. Patient denied chest pain, shortness of breath or palpitation. She feels that her leg is better today and her pain was better controlled and she has very good night sl eep yesterday. - Exam Vitals: Temp Pulse Resp BP Pulse Ox 97.7 F 67 16 131/61 95 07/18/19 11:13 07/18/19 11:13 07/18/19 11:13 07/18/19 11:13 07/18/19 11:13 Exam: General: Ill-appearing and writhing in pain HEENT: No erythema of posterior pharynx. No exudates. Lymphatics: No mandibular or cervical lymphadenopathy Cardiovascular: RRR. No murmurs. No chest wall tenderness. Lungs: Clear to auscelltation bilaterally. Regular chest rise. Abdomen: Non-tender. No rebound or gaurding. Nl bowel sounds. Extremities: LLE with surgical dressing in place c/d/i, wound vac with yellowish discharge. LUQ PICCl line Skin: No rahses, abrasions, or contusions. Nl cap refill. Psych: Nl attention. A&Ox3 Neuro: scholastic aptitude test grader II-XII intact. 5/5 strength. Sensation to light touch and pinprick intact. - Assessment and Plan (1) Cellulitis of left foot Current Visit: Yes Status: Acute (2) COPD exacerbation Current Visit: Yes Status: Chronic (3) HTN (hypertension) Current Visit: Yes Status: Chronic (4) DM type 2 (diabetes mellitus, type 2) Current Visit: Yes Status: Chronic (5) Sepsis Current Visit: Yes Status: Resolved (6) Non-healing surgical wound Current Visit: Yes Status: Chronic - Summary of Assessment and Plan Summary of Assessment and Plan: 69-year-old female with history of type II DM, CAD, COPD, tobacco abuse, recent left lower extremity fracture and hardware placement who was admitted to the hospital with lower extremity cellulitis. Her symptoms were managed as following: LLE Cellulitis: - s/P left foot excisional debridement of wounds dorsal foot, heel, distal foot and submetarsal #5 removal of hardware left foot, application of wound vac, application PuraPlygraft, and application of PRP with Dr. Nicholson on 07/11/19 AND I&D on 07/17. - CT of the foot revealed multiple foci of air about the joint and hardware with overlying soft tissue irregularity concerning for infection. - Wound cultures is growing Raoultella planticola, ID on board, continue Zosyn, awaiting recent wound cx. Had a picc line placed. - Pain management with [place] for moderate pain and oxycodone for severe pain Sepsis: Secondary to above. Management as above. Patient is afebrile and hemodynamically stable. PAD: HAd angiogram 07/12, as per reports left posterior tibial, left anterior tibia, left dorsalis pedis and right anterior tibial was occluded but left peroneal artery was patent and was providing the collateral flow to the foot with the formation of the plantar arteries. No further intervneions. Continue aspirin, will add Lipitor. HTN: - Continue lisinopril Type II DM: Accu-Chek and sliding scale coverage, added levemir for better control. DVT prophylaxis: Subcutaneous heparin - Time Spent with Patient Total time spent is greater than 50% in coordination of care (as documented) at patient's floor/unit and/or counseling patient: Plan of Care Discussed with: patient Internal Medicine: Result - Labs CBC & Chem 7: 07/18/19 05:06 07/18/19 05:06 Labs: Short CBC 07/18/19 Range/Units 05:06 WBC 7.5 (4.3-11.1) K/mcL Hgb 9.6 L (11.5-15.4) g/dL Hct 30.5 L (35.3-44.9) % Plt Count 252 (140-400) K/mcL BMP 07/18/19 05:06 Sodium 139 Potassium 3.7 Chloride 101 Carbon Dioxide 31 H BUN 15 Creatinine 0.59 L Glucose 366 H Calcium 8.1 L Consult Discharge Plan - Plan Referrals: Radha Chinchilla, POT TENDER [Primary Care Provider] - (3) HTN (hypertension) Qualifiers: Hypertension type: essential hypertension Qualified Code(s): I10 - Essential (primary) hypertension (4) DM type 2 (diabetes mellitus, type 2) Qualifiers: 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 assistant terminal manager insulin use: with assistant terminal manager use 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 complication status: without complication Qualified Code(s): E11.9 - Type 2 diabetes mellitus without complications; Z79.4 - termite control technician (current) use of insulin (5) Sepsis Qualifiers: Sepsis type: sepsis due to unspecified organism Sepsis acute organ dysfunction status: unspecified Qualified Code(s): A41.9 - Sepsis, unspecified organism (6) Non-healing surgical wound Qualifiers: Encounter type: subsequent encounter Qualified Code(s): T81.89XD - Other complications of procedures, not elsewhere classified, subsequent encounter
--- NOTE | 2019-07-18 13:45 | Podiatry Progress Note ---
Date of Encounter: 07/18/19 Time of Encounter: 11:40 - Assessment and Plan (1) Cellulitis of left foot Current Visit: Yes Status: Acute Assessment: -S/P left foot excisional debridement of wounds dorsal foot, heel, distal foot and submetarsal #5 removal of hardware left foot, application of wound vac, application PuraPlygraft, and application of PRP with Dr. Nicholson on 07/11/19 and post op day #1 debridement of heel bone, debridement of midfoot bone, and application of graft by Dr. Nicholson on 07/17/2019 -Dressing dry and in tact, no strike through noted -WBC 7.5, afebrile -ESR 75, CRP 37 -Wound cultures final Raoultella planticola 07/11/2019 -Surgical wound cultures and path pending -Blood cultures pending -07/03/19 tcp02 R ankle 37, R foot 29, L ankle 28, L foot 24 -07/03/19 ABIs bilaterally within normal limits -CT negative for OM or abscess -Wound vac in place, suction at 125mmHG Plan: -Patient on IV Zosyn, ID following -Pain control, primary managing -Keep left lower extremity elevated, keep heel off of bed, no pressure to heel at anytime use pillow to elevate -Non-weight bearing LLE -Wound vac changes Monday, Monday, Monday Subjective Interval history: Post op left foot excisional debridement of wounds dorsal foot 0aqv1eis0.5cm, heel 9ief0gnf6.3cm, distal foot 9caf2hlt0.3cm and 0.9uui5uvh1.3cm and submet 5 1.9lin2hvd6.3cm, removal of hardware left foot, application PuraPlygraft, and application of PRP by Dr. Nicholson on 07/11/2019 and post op day #1 debridement of heel bone, debridement of midfoot bone, and application of graft by Dr. Nicholson on 07/17/2019 Patient is alert and oriented x 3, resting in bed with left heel of of bed, and no acute distress noted. She denies any chest pain, shortness of breath, or calf. Patient denies fever, chills, n/v/d. Dressing dry and intact LLE. Objective - Vital Signs Vital Signs: Vital Signs Temp Pulse Resp BP Pulse Ox 07/18/19 11:13 97.7 F 67 16 131/61 95 07/18/19 07:54 97.5 F L 62 16 146/67 94 07/18/19 04:34 97.5 F L 66 18 126/74 91 07/18/19 00:14 97.6 F 77 15 116/77 91 07/17/19 20:30 97.8 F 86 16 171/72 07/17/19 19:31 98.3 F 80 16 171/72 90 07/17/19 18:11 98.3 F 76 16 169/53 92 07/17/19 17:40 98.1 F 81 18 181/78 98 07/17/19 17:05 97.7 F 82 16 166/72 92 07/17/19 14:43 78 175/82 95 07/17/19 14:40 93 171/86 97 Intake and Output 07/17/19 07/18/19 07/18/19 23:59 07:59 15:59 Intake Total 360 / 560 0 / 580 580 / 580 Output Total Balance 335 / 535 -20 / 560 580 / 560 Intake: IV Fluids 100 / 100 Zosyn 3.375 GM In 0.9 % Sodium 100 / 100 Chloride (Mini-Bag +) 100 ML @ 25 mls/hr IVPB Q8HR [facility] Rx#: [id number] Oral 360 / 360 0 / 480 480 / 480 Output: Estimated Blood Loss 25 / 25 Wound Drainage Left Foot Other: Meal Lunch Percent of Meal Consumed 50% 90% Stool Size Moderate Moderate Stool Consistency soft formed Stool Characteristics Normal for Patient Stool Color Brown Brown Green # Voids 1 # Bowel Movements 1 1 Weight 76.5 kg Blood Glucose* 105 306 173 Patient Weight 07/18/19 23:59 Weight 76.5 kg - Exam Exam: Constitutional: Alert and oriented x 3 female, no acute distress noted Vascular: no pain with calf squeeze, skin warm to touch and pale Dermatological: Dressing dry and intact - Lab Result Diagrams: 07/18/19 05:06 07/18/19 05:06 Labs: Abnormal lab results WBC 11.5 K/mcL (4.3-11.1) H D 07/15/19 09:34 RBC 3.49 M/mcL (3.82-4.97) L 07/18/19 05:06 Hgb 9.6 g/dL (11.5-15.4) L 07/18/19 05:06 Hct 30.5 % (35.3-44.9) L 07/18/19 05:06 MCH 27.5 pg (28.0-33.3) L 07/18/19 05:06 MCHC 31.5 g/dL (31.6-35.5) L 07/18/19 05:06 Neutrophils # 9.0 K/mcL (1.6-8.9) H 07/10/19 12:52 ESR 75 mm/hr (0-15) H 07/10/19 12:52 Potassium 3.3 mEq/L (3.5-5.1) L 07/11/19 03:56 Carbon Dioxide 31 mEq/L (23-29) H 07/18/19 05:06 BUN 27 mg/dL (8-23) H 07/15/19 09:34 Creatinine 0.59 mg/dL (0.60-1.20) L 07/18/19 05:06 Est GFR (Non-Af Amer) 52 (> 60) L 07/15/19 09:34 BUN/Creatinine Ratio 35 (6-26) H 07/16/19 03:31 Glucose 366 mg/dL (70-105) H 07/18/19 05:06 POC Glucose 173 mg/dL (70-99) H 07/18/19 11:11 Hemoglobin A1c 7.4 % (-5.6) H 07/14/19 03:09 Calculated Osmolality 304 (280-300) H 07/18/19 05:06 Calcium 8.1 mg/dL (8.6-10.3) L 07/18/19 05:06 C-Reactive Protein 37 mg/L (Less than 10) H 07/10/19 12:52 Serum Total Protein 5.8 g/dL (6.4-8.9) L 07/15/19 09:34 Albumin 3.0 g/dL (3.5-5.7) L 07/15/19 09:34 Vancomycin Trough 14 mcg/mL (5-10) H 07/13/19 11:54 Microbiology, Last 48 Hours 07/17/19 16:07 Wound Culture - Preliminary Left Foot 07/17/19 16:07 Anaerobic Culture - Preliminary Left Foot Culture is incubating. 07/11/19 15:40 Anaerobic Culture - Preliminary Left Foot At this time, no anaerobic growth is present. The culture will be finalized after 5 days of incubation. Consult Discharge Plan - Plan Referrals: Radha Chinchilla, ALEJANDRO [Primary Care Provider] -
[2019-07-18] MEDS: *HR* OxyCODONE Immed Rel 5 MG TABLET PO PRN (20:15)
[2019-07-18] MEDS ORDERED: Insulin DETEMIR 100 UNIT/ML X5UNITS SQ SCH (21:00)
[2019-07-19] MEDS: *HR* OxyCODONE Immed Rel 5 MG TABLET PO PRN ×2 (00:03→04:20)
[2019-07-19 05:16] LABS: Hematocrit 30.3 % (35.3-44.9); Hemoglobin 9.5 g/dL (11.5-15.4); Mean Corpuscular HGB Conc 31.4 g/dL (31.6-35.5); Mean Corpuscular Hemoglobin 27.3 pg (28.0-33.3); Mean Corpuscular Volume 87.1 fL (83.0-100.0); Mean Platelet Volume 11.7 fL (9.4-12.4); Platelet Count 288 K/mcL (140-400); Red Blood Count 3.48 M/mcL (3.82-4.97); Red Cell Distribution Width 13.5 % (11.5-14.5); White Blood Count 10.5 K/mcL (4.3-11.1)
[2019-07-19 05:33] LABS: BUN/Creatinine Ratio 27 (6-26); Blood Urea Nitrogen 18 mg/dL (8-23); Calcium 8.4 mg/dL (8.6-10.3); Carbon Dioxide 32 mEq/L (23-29); Chloride 104 mEq/L (98-107); Glucose 105 mg/dL (70-105); Osmolality,Calculated 298 (280-300); Potassium 3.6 mEq/L (3.5-5.1); Sodium 143 mEq/L (136-145); eGFR For African Americans > 60 (> 60); eGFR For Non-African Americans > 60 (> 60)
[2019-07-19] MEDS: *HR* Heparin 5,000 UNIT/ML VIAL SQ SCH (06:08)
[2019-07-19] MEDS: Insulin LISPRO 300 UNITS/3 ML VIAL SQ SCH (07:35)
[2019-07-19] MEDS: Piperacillin/Tazobactam 3.375 GM in 0.9 % Sodium Chloride Mini Bag 100 ML IVPB SCH ×2 (08:01)
[2019-07-19] MEDS: Ascorbic Acid 500 MG TABLET PO SCH (08:03)
[2019-07-19] MEDS: Cholecalciferol (D-3) 1,000 UNIT (25MCG) TABLET PO SCH (08:03)
[2019-07-19] MEDS: Cyanocobalamin (B-12) 1,000 MCG TABLET PO SCH (08:03)
[2019-07-19] MEDS: Aspirin Enteric Coated 81 MG Tablet PO SCH (08:03)
[2019-07-19] MEDS: Fluticasone Propionate Nasal 50 MCG/SPRAY BOTTLE NS SCH (08:03)
[2019-07-19] MEDS ORDERED: *HR* OxyCODONE Immed Rel 5 MG TABLET PO PRN (08:32)
[2019-07-19] MEDS ORDERED: *HR* HYDROcodone/Acet 5/325 mg TABLET PO SCH (10:00)
--- NOTE | 2019-07-19 10:20 | Podiatry Progress Note ---
Date of Encounter: 07/19/19 Time of Encounter: 09:15 - Assessment and Plan (1) Cellulitis of left foot Current Visit: Yes Status: Acute Assessment: -S/P left foot excisional debridement of wounds dorsal foot, heel, distal foot and submetarsal #5 removal of hardware left foot, application of wound vac, application PuraPlygraft, and application of PRP with Dr. Nicholson on 07/11/19 and post op day #2 debridement of heel bone, debridement of midfoot bone, and application of graft by Dr. Nicholson on 07/17/2019 -Graft in place distal foot and sutures intact left heel, no complications noted, no signs of infection noted -WBC 10.5, afebrile -ESR 75, CRP 37 -Wound cultures final Raoultella planticola 07/11/2019 -Surgical wound cultures preliminary for Gram negative rods -Path pending -Blood cultures preliminary -07/03/19 tcp02 R ankle 37, R foot 29, L ankle 28, L foot 24 -07/03/19 ABIs bilaterally within normal limits -CT negative for OM or abscess -Wound vac in place, suction at 125mmHG, serosanginous drainage in canister 50cc Plan: -Patient on IV Zosyn, ID following -Pain control, primary managing -Keep left lower extremity elevated, keep heel off of bed, no pressure to heel at anytime use pillow to elevate -Non-weight bearing LLE -Wound vac changes Monday and when discharged to SNF, Monday, Monday, and Monday while inpatient -March discharge when okay with ID and internal medicine -Follow up in Wound Care with Dr. Nicholson, please schedule appointment prior to discharge -Wound vac and dressing change Wound to heel left lower extremity cleaned with .9 NS and pat dry. Wound vac placed with white foam to dorsal wound over graft, draped with tegaderm in usual fashion with window-pane dressing. Adaptic, 4x4's and ABD pads applied to heel. Covered LLE with Kerlix and KELLEN. Tubing offset to prevent further complications. Good seal noted and suction was continued at 125 mmHG setting. Subjective Interval history: Post op left foot excisional debridement of wounds dorsal foot 8qfq1xmt8.5cm, heel 0idw5krq4.3cm, distal foot 7lky5vac3.3cm and 0.3ubi8uyn4.3cm and submet 5 1.0ety4oja8.3cm, removal of hardware left foot, application PuraPlygraft, and application of PRP by Dr. Nicholson on 07/11/2019 and post op day #2 debridement of heel bone, debridement of midfoot bone, and application of graft by Dr. Nicholson on 07/17/2019 Patient is alert and oriented x 3, resting in bed with left heel of of bed, and no acute distress noted. She is complaining of pain left heel that she rates as a 10. She denies any chest pain, shortness of breath, or calf. Patient denies fever, chills, n/v/d. Dressing dry and intact LLE. Objective - Vital Signs Vital Signs: Vital Signs Temp Pulse Resp BP Pulse Ox 07/19/19 08:05 97 07/19/19 07:18 97.6 F 65 17 168/68 97 07/19/19 04:00 97.5 F L 67 19 159/67 94 07/18/19 22:48 97.5 F L 68 20 141/65 98 07/18/19 19:31 98.1 F 82 18 150/89 93 07/18/19 14:49 97.9 F 70 16 126/61 92 07/18/19 11:13 97.7 F 67 16 131/61 95 Intake and Output 07/18/19 07/19/19 07/19/19 23:59 07:59 15:59 Intake Total 580 / 1500 100 / 100 0 / 100 Output Total 25 / 125 100 / 125 Balance 580 / 1480 75 / -25 -100 / -25 Intake: IV Fluids 100 / 300 100 / 100 Zosyn 3.375 GM In 0.9 % Sodium 100 / 300 100 / 100 Chloride (Mini-Bag +) 100 ML @ 25 mls/hr IVPB Q8HR [facility] Rx#: [id number] Oral 480 / 1200 0 / 0 Output: Emesis 100 / 100 Wound Drainage 25 / 25 Left Foot 25 / 25 Other: Meal Dinner Breakfast Percent of Meal Consumed 75% 0% # Voids 1 Blood Glucose* 188 116 - Exam Exam: Constitutional: Alert and oriented x 3 female, no acute distress noted Vascular: no pain with calf squeeze, skin warm to touch from tibia to toe Dermatological: Graft in place to distal left foot, sutures intact left heel and edges coapting, no drainage noted, no ischemia noted, 50cc of serosanguineous drainage in wound vac - Lab Result Diagrams: 07/19/19 04:25 07/19/19 04:25 Labs: Abnormal lab results WBC 11.5 K/mcL (4.3-11.1) H D 07/15/19 09:34 RBC 3.48 M/mcL (3.82-4.97) L 07/19/19 04:25 Hgb 9.5 g/dL (11.5-15.4) L 07/19/19 04:25 Hct 30.3 % (35.3-44.9) L 07/19/19 04:25 MCH 27.3 pg (28.0-33.3) L 07/19/19 04:25 MCHC 31.4 g/dL (31.6-35.5) L 07/19/19 04:25 Neutrophils # 9.0 K/mcL (1.6-8.9) H 07/10/19 12:52 ESR 75 mm/hr (0-15) H 07/10/19 12:52 Potassium 3.3 mEq/L (3.5-5.1) L 07/11/19 03:56 Carbon Dioxide 32 mEq/L (23-29) H 07/19/19 04:25 BUN 27 mg/dL (8-23) H 07/15/19 09:34 Creatinine 0.59 mg/dL (0.60-1.20) L 07/18/19 05:06 Est GFR (Non-Af Amer) 52 (> 60) L 07/15/19 09:34 BUN/Creatinine Ratio 27 (6-26) H 07/19/19 04:25 Glucose 366 mg/dL (70-105) H 07/18/19 05:06 POC Glucose 188 mg/dL (70-99) H 07/18/19 20:01 Hemoglobin A1c 7.4 % (-5.6) H 07/14/19 03:09 Calculated Osmolality 304 (280-300) H 07/18/19 05:06 Calcium 8.4 mg/dL (8.6-10.3) L 07/19/19 04:25 C-Reactive Protein 37 mg/L (Less than 10) H 07/10/19 12:52 Serum Total Protein 5.8 g/dL (6.4-8.9) L 07/15/19 09:34 Albumin 3.0 g/dL (3.5-5.7) L 07/15/19 09:34 Vancomycin Trough 14 mcg/mL (5-10) H 07/13/19 11:54 Microbiology, Last 48 Hours 07/17/19 16:07 Wound Culture - Preliminary Left Foot Gram Negative Jesse 07/11/19 15:40 Anaerobic Culture - Final Left Foot No anaerobes were recovered. 07/17/19 16:07 Anaerobic Culture - Preliminary Left Foot Culture is incubating. Consult Discharge Plan - Plan Referrals: Radha Chinchilla, ALEJANDRO [Primary Care Provider] -
[2019-07-19 11:32] VITALS: BP 137/58
--- NOTE | 2019-07-19 11:42 | Discharge Summary ---
- NOTES TO OUTPATIENT PROVIDER Notes to Outpatient Provider: Patient was admitted for left lower extremity cellulitis on her hardware was removed and she went underI&D with wound cultures positive for Raoultella planticola. ID was consulted and patient will be discharged on Rocephin and Flagyl for 6 weeks with weekly blood work checked and follow-up with ID in 2 weeks. She was also followed by podiatry who will follow up in wound care in 1 week after discharge. She also has a diabetes and she needs to be started on oral hypoglycemic possibly Glipizide Orders not resulted at time of discharge: Pending orders 07/15/19 13:05 Culture,Blood [BC] Stat 07/17/19 16:07 Culture,Anaerobic [RM] Routine Culture,Wound,with Gram Stain [RM] Routine Date of Encounter: 07/19/19 Time of Encounter: 10:00 - Discharge Diagnosis (1) Cellulitis of left foot Priority: Primary Status: Acute (2) COPD exacerbation Priority: Secondary Status: Chronic (3) HTN (hypertension) Priority: Secondary Status: Chronic Qualifiers: Hypertension type: essential hypertension Qualified Code(s): I10 - Essential (primary) hypertension (4) DM type 2 (diabetes mellitus, type 2) Priority: Secondary Status: Chronic Qualifiers: 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 terminal press operator insulin use: with senior care use 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 complication status: without complication Qualified Code(s): E11.9 - Type 2 diabetes mellitus without complications; Z79.4 - intermediate (current) use of insulin (5) Sepsis Priority: Secondary Status: Resolved Qualifiers: Sepsis type: sepsis due to unspecified organism Sepsis acute organ dysfunction status: without acute organ dysfunction Qualified Code(s): A41.9 - Sepsis, unspecified organism (6) Non-healing surgical wound Priority: Secondary Status: Chronic Qualifiers: Encounter type: subsequent encounter Qualified Code(s): T81.89XD - Other complications of procedures, not elsewhere classified, subsequent encounter Hospital course: 9-year-old female with history of type II DM, CAD, COPD, tobacco abuse, recent left lower extremity fracture and hardware placement who was managed in the hospital for sepsis related to lower extremity cellulitis. CT of the foot revealed multiple foci of air about the joint and hardware with overlying soft tissue irregularity concerning for infection. Podiatry service was consulted and patient had left foot excisional debridement of wounds dorsal foot, heel, distal foot and submetarsal #5 removal of hardware left foot, application of wound vac, application PuraPlygraft, and application of PRP with Dr. Nicholson on 07/11/19 AND I&D on 07/17. Wound cultures is growing Raoultella planticola. ID recommended Rocephin and Flagyl at discharge and weekly checks of her blood work. Had a picc line placed. Today, patient is hemodynamically stable. Her pain is controlled and she will be discharged to shelter in stable condition. Discharge discussed with: patient - Time Spent with Patient Total time spent providing and/or coordinating discharge services: 60 minutes - Discharge Medications Prescriptions: New metroNIDAZOLE [Flagyl] 500 mg PO TID #126 tablet HYDROcodone/Acet 7.5/325 mg [Carlock 7.5-325 mg] 1 tab PO Q6H 10 Days #40 tablet cefTRIAXone [Rocephin] 2,000 mg IVPB DAILY #42 vial Atorvastatin [Lipitor] 80 mg PO HS #30 tablet Polyethylene Glycol 3350 [MiraLAX] 17 gm PO DAILY #30 powd.pack Omeprazole [PriLOSEC] 20 mg PO 0730 capsule.dr Hewitt Alprazolam [Xanax] 2 mg PO TID PRN PRN Reason: Anxiety Aspirin [Adult Aspirin Regimen] 81 mg PO DAILY Cyanocobalamin (Vitamin B-12) [Vitamin B-12] 1,000 mcg PO BID Fluticasone Propionate Nasal [Flonase] 1 spray NS BID Albuterol Sulfate [Proventil Inhaler] 2 puff IH Q4-6H PRN PRN Reason: Shortness Of Breath Ondansetron HCl 8 mg PO DAILY PRN PRN Reason: Nausea Lisinopril [Zestril] 5 mg PO DAILY Albuterol Neb [Proventil Neb] 2.5 mg IH Q6HR PRN PRN Reason: Wheezing Mv W-Ca/Iron/FA/Lutein/Hrb#179 [Sung Multivit For Women Caplet] 1 tab PO DAILY Nitroglycerin [Nitrostat] 0.4 mg SL Q5M PRN PRN Reason: Chest Pain Ferrous Sulfate 325 mg PO BID Ascorbic Acid [Vitamin C] 500 mg PO BID Cholecalciferol (D-3) [Vitamin D] 1,000 unit PO DAILY #30 tablet Discontinued HYDROcodone/Acet 7.5/325 mg [Carlock 7.5-325 mg] 1 tab PO Q6HR PRN PRN Reason: Pain Amoxicillin/Clavulanate [Augmentin] 1 tab PO BID Omeprazole [PriLOSEC] 40 mg PO DAILY PRN PRN Reason: Indigestion Home Medications: Albuterol Neb [Proventil Neb] 2.5 mg IH Q6HR PRN 10/02/16 [History] Mv W-Ca/Iron/FA/Lutein/Hrb#179 [Sung Multivit For Women Caplet] 1 tab PO DAILY 10/02/16 [History] Nitroglycerin [Nitrostat] 0.4 mg SL Q5M PRN 12/10/17 [History] Ascorbic Acid [Vitamin C] 500 mg PO BID 04/03/19 [History] Ferrous Sulfate 325 mg PO BID 04/03/19 [History] Albuterol Sulfate [Proventil Inhaler] 2 puff IH Q4-6H PRN 05/03/19 [History] Alprazolam [Xanax] 2 mg PO TID PRN 05/03/19 [History] Aspirin [Adult Aspirin Regimen] 81 mg PO DAILY 05/03/19 [History] Cyanocobalamin (Vitamin B-12) [Vitamin B-12] 1,000 mcg PO BID 05/03/19 [History] Fluticasone Propionate Nasal [Flonase] 1 spray NS BID 05/03/19 [History] Cholecalciferol (D-3) [Vitamin D] 1,000 unit PO DAILY #30 tablet 05/25/19 [Rx] Lisinopril [Zestril] 5 mg PO DAILY 07/11/19 [History] Ondansetron HCl 8 mg PO DAILY PRN 07/11/19 [History] Atorvastatin [Lipitor] 80 mg PO HS #30 tablet 07/19/19 [Rx] HYDROcodone/Acet 7.5/325 mg [Carlock 7.5-325 mg] 1 tab PO Q6H 10 Days #40 tablet 07/19/19 [Rx] Omeprazole [PriLOSEC] 20 mg PO 0730 capsule. 07/19/19 [Rx] Polyethylene Glycol 3350 [MiraLAX] 17 gm PO DAILY #30 powd.pack 07/19/19 [Rx] cefTRIAXone [Rocephin] 2,000 mg IVPB DAILY #42 vial 07/19/19 [Rx] metroNIDAZOLE [Flagyl] 500 mg PO TID #126 tablet 07/19/19 [Rx] Allergies/Adverse Reactions: Allergy/AdvReac Type Severity Reaction Status Date / Time No Known Allergies Allergy Verified 05/03/19 18:37 Date of admission: 07/12/19 14:28 Primary care physician: Radha Chinchilla CNP Consults: 07/10/19 14:40 Consult to Podiatry [CONS] Stat Consulting Provider: [facility] Reason for Consult: left foot wound/infection, gas Call Completed: Yes 07/10/19 17:29 Consult to Sox Analyst [CONS] Routine Reason for SW Consult: Home health, wound care 07/11/19 15:35 Consult to Physical Therapy [CONS] Routine Comment: Evaluate, develop and implement POC Reason for Consult: OR today for debridement with podiatry - Patient reports unsteady gait and open to rehab placement if warranted. Does patient have active BEDREST order?: No Is patient medically & hemodynamically stable?: Yes Patient assessed for mobility or mobilized this visit?: No 07/11/19 15:37 Consult to Occupational Therapy [CONS] Routine Comment: Evaluate, develop and implement POC Reason for Consult: OR today for debridement with podiatry - Patient reports unsteady gait and open to rehab placement if warranted. Does patient have active BEDREST order?: No Is patient medically & hemodynamically stable?: Yes Patient assessed for mobility or mobilized this visit?: No 07/12/19 09:08 Consult to Infectious Diseases [CONS] Routine Consulting Provider: Infectious Disease Kathryn Reason for Consult: Cellulitis Sepsis Call Completed: Yes 07/14/19 09:29 Consult to PICC team [Consult to Invasive Line Access Team] [CONS] Routine Reason for Consult: PICC placement for ABs lng-term Line Type: PICC Call Completed: No 07/16/19 14:58 Consult to PICC team [Consult to Invasive Line Access Team] [CONS] Stat Reason for Consult: midline for long-term IV ABs Line Type: Midline - Constitutional Vitals: Temp Pulse Resp BP Pulse Ox 98.1 F 69 15 137/58 90 07/19/19 11:30 07/19/19 11:30 07/19/19 11:30 07/19/19 11:30 07/19/19 11:30 Exam: General: Ill-appearing and writhing in pain HEENT: No erythema of posterior pharynx. No exudates. Lymphatics: No mandibular or cervical lymphadenopathy Cardiovascular: RRR. No murmurs. No chest wall tenderness. Lungs: Clear to auscelltation bilaterally. Regular chest rise. Abdomen: Non-tender. No rebound or gaurding. Nl bowel sounds. Extremities: LLE with surgical dressing in place c/d/i, wound vac with yellowish discharge. LUQ PICCl line Skin: No rahses, abrasions, or contusions. Nl cap refill. Psych: Nl attention. A&Ox3 Neuro: die cut operator II-XII intact. 5/5 strength. Sensation to light touch and pinprick intact. - Patient Status Disposition: Transfer SNF Condition: Good Functional capacity at discharge: bed bound Overall status at discharge: patient is not back to baseline - Ambulatory Orders Ambulatory Orders: Basic Metabolic Panel [CHEM] Time Frame: 1 Week, Facility: [facility], Location: Lab Basic Metabolic Panel [CHEM] Time Frame: 07/26/19, Facility: [facility], Location: Lab Basic Metabolic Panel [CHEM] Time Frame: 08/02/19, Facility: [facility], Location: Lab Basic Metabolic Panel [CHEM] Time Frame: 08/09/19, Facility: [facility], Location: Lab Basic Metabolic Panel [CHEM] Time Frame: 08/16/19, Facility: [facility], Location: Lab Basic Metabolic Panel [CHEM] Time Frame: 08/23/19, Facility: [facility], Location: Lab Basic Metabolic Panel [CHEM] Time Frame: 08/30/19, Facility: [facility], Location: Lab C-Reactive Protein [CHEM] Time Frame: 1 Week, Facility: [facility], Location: Lab C-Reactive Protein [CHEM] Time Frame: 07/26/19, Facility: [facility], Location: Lab C-Reactive Protein [CHEM] Time Frame: 08/02/19, Facility: [facility], Location: Lab C-Reactive Protein [CHEM] Time Frame: 08/09/19, Facility: [facility], Location: Lab C-Reactive Protein [CHEM] Time Frame: 08/16/19, Facility: [facility], Location: Lab C-Reactive Protein [CHEM] Time Frame: 08/23/19, Facility: [facility], Location: Lab C-Reactive Protein [CHEM] Time Frame: 08/30/19, Facility: [facility], Location: Lab Complete Blood Count w/o Diff [HEME] Time Frame: 1 Week, Facility: [facility], Location: Lab Complete Blood Count w/o Diff [HEME] Time Frame: 07/26/19, Facility: [facility], Location: Lab Complete Blood Count w/o Diff [HEME] Time Frame: 08/02/19, Facility: [facility], Location: Lab Complete Blood Count w/o Diff [HEME] Time Frame: 08/09/19, Facility: [facility], Location: Lab Complete Blood Count w/o Diff [HEME] Time Frame: 08/16/19, Facility: [facility], Location: Lab Complete Blood Count w/o Diff [HEME] Time Frame: 08/23/19, Facility: [facility], Location: Lab Complete Blood Count w/o Diff [HEME] Time Frame: 08/30/19, Facility: [facility], Location: Lab Erythrocyte Sedimentation Rate [HEME] Time Frame: 1 Week, Facility: [facility], Location: Lab Erythrocyte Sedimentation Rate [HEME] Time Frame: 07/26/19, Facility: [facility], Location: Lab Erythrocyte Sedimentation Rate [HEME] Time Frame: 08/02/19, Facility: [facility], Location: Lab Erythrocyte Sedimentation Rate [HEME] Time Frame: 08/09/19, Facility: [facility], Location: Lab Erythrocyte Sedimentation Rate [HEME] Time Frame: 08/16/19, Facility: [facility], Location: Lab Erythrocyte Sedimentation Rate [HEME] Time Frame: 08/23/19, Facility: [facility], Location: Lab Erythrocyte Sedimentation Rate [HEME] Time Frame: 08/30/19, Facility: [facility], Location: Lab - Discharge Instructions Follow Up With: Radha Chinchilla CNP [Primary Care Provider] - Morena Galan MD [Partnered Physician] - Caio Nichloson DPM [Partnered Physician] - - Diet and Activity Activity: other (Keep left lower extremity elevated, keep heel off of bed, no pressure to heel at anytime use pillow to elevate, Non-weight bearing LLE.) Diet: diabetic diet
--- NOTE | 2019-07-19 11:53 | Physician Discharge Referral ---
ExtendedCare Referral Info Transfer To: SNF Provider in Charge after Transfer: PCP Institutional Level of Care: Skilled - Diagnosis (1) Cellulitis of left foot Status: Acute (2) COPD exacerbation Priority: Secondary Status: Chronic (3) HTN (hypertension) Priority: Secondary Status: Chronic (4) DM type 2 (diabetes mellitus, type 2) Priority: Secondary Status: Chronic (5) Sepsis Priority: Secondary Status: Resolved (6) Non-healing surgical wound Priority: Secondary Status: Chronic - Transfer Medications Prescriptions: metroNIDAZOLE [Flagyl] 500 mg PO TID #126 tablet Atorvastatin [Lipitor] 80 mg PO HS #30 tablet Polyethylene Glycol 3350 [MiraLAX] 17 gm PO DAILY #30 powd.pack HYDROcodone/Acet 7.5/325 mg [Kirby 7.5-325 mg] 1 tab PO Q6H 10 Days #40 tablet cefTRIAXone [Rocephin] 2,000 mg IVPB DAILY #42 vial Home Medications: Albuterol Neb [Proventil Neb] 2.5 mg IH Q6HR PRN 10/02/16 [History] Mv W-Ca/Iron/FA/Lutein/Hrb#179 [Sung Multivit For Women Caplet] 1 tab PO DAILY 10/02/16 [History] Nitroglycerin [Nitrostat] 0.4 mg SL Q5M PRN 12/10/17 [History] Ascorbic Acid [Vitamin C] 500 mg PO BID 04/03/19 [History] Ferrous Sulfate 325 mg PO BID 04/03/19 [History] Albuterol Sulfate [Proventil Inhaler] 2 puff IH Q4-6H PRN 05/03/19 [History] Alprazolam [Xanax] 2 mg PO TID PRN 05/03/19 [History] Aspirin [Adult Aspirin Regimen] 81 mg PO DAILY 05/03/19 [History] Cyanocobalamin (Vitamin B-12) [Vitamin B-12] 1,000 mcg PO BID 05/03/19 [History] Fluticasone Propionate Nasal [Flonase] 1 spray NS BID 05/03/19 [History] Cholecalciferol (D-3) [Vitamin D] 1,000 unit PO DAILY #30 tablet 05/25/19 [Rx] Lisinopril [Zestril] 5 mg PO DAILY 07/11/19 [History] Ondansetron HCl 8 mg PO DAILY PRN 07/11/19 [History] Atorvastatin [Lipitor] 80 mg PO HS #30 tablet 07/19/19 [Rx] HYDROcodone/Acet 7.5/325 mg [Kirby 7.5-325 mg] 1 tab PO Q6H 10 Days #40 tablet 07/19/19 [Rx] Omeprazole [PriLOSEC] 20 mg PO 0730 capsule.dr 07/19/19 [Rx] Polyethylene Glycol 3350 [MiraLAX] 17 gm PO DAILY #30 powd.pack 07/19/19 [Rx] cefTRIAXone [Rocephin] 2,000 mg IVPB DAILY #42 vial 07/19/19 [Rx] metroNIDAZOLE [Flagyl] 500 mg PO TID #126 tablet 07/19/19 [Rx] Allergies/Adverse Reactions: Allergy/AdvReac Type Severity Reaction Status Date / Time No Known Allergies Allergy Verified 05/03/19 18:37 - Respiratory Orders Other (Incentive spirometery), None Smoking Cessation: Smoking cessation has been advised. For more information, call the [place] Tobacco Quit Line at 5-386-ZLOP-NOW. - Lab Orders Lab Orders: Other (include drug levels w/frequency) (cbc/bmp/esr/ crp weekly x 6 weeks) - Advance Directives Code Status: Full Code - Mobility Orders Bedrest (Non-weight bearing LLE, Keep left lower extremity elevated, keep heel off of bed, no pressure to heel at anytime use pillow to elevate,) - Rehabiliation Orders Rehab Potential: Good Rehab Orders: Evaluation for Physical Therapy, Evaluation for Occupational Therapy - Treatments List/Other: Wound vac changes Monday and . Wound vac and dressing change: Wound to heel left lower extremity cleaned with .9 NS and pat dry. Wound vac placed with white foam to dorsal wound over graft, draped with tegaderm in usual fashion with window-pane dressing. Adaptic, 4x4's and ABD pads applied to heel. Covered LLE with Kerlix and KELLEN. Tubing offset to prevent further complications. Good seal noted and suction was continued at 125 mmHG setting. - Diet Orders Cardiac (and diabetic) CERTIFICATION: I certify that the transfer of the above named patient to an Extended Care Facility is necessary for the continuing treatment of the diagnosis listed. The above information is true and accurate reflection of patient's current condition. Confidential - Redisclosure prohibited without a patient's written consent.
--- NOTE | 2019-07-19 20:51 | Infectious Disease Progress No ---
ID Progress Note Date of Encounter: 07/19/19 Time of Encounter: 11:00 - Subjective Subjective: Patient seen and examined. clinically feels okay. No chest pain, no shortness of breath no cough no diarrhea no urinary symptoms. was having some foot pain which has then improved. No diarrhea no urinary symptoms VS noted labs reviewed - Objective CBC & Chem 7: 07/19/19 04:25 07/19/19 04:25 - Exam Vitals: Temp Pulse Resp BP Pulse Ox 98.1 F 69 15 137/58 90 07/19/19 11:30 07/19/19 11:30 07/19/19 11:30 07/19/19 11:30 07/19/19 11:30 Exam: GENERAL: Comfortable. Laying in bed NAD HEENT: LIDYA, EOMI LUNGS: Good air sounds bilaterally, no wheezing or rhonchi CV: RRR, S1 S2 ABDOMEN: Soft, nontender, + bowel sounds EXT: surgically wrapped NEURO: A&OX3; no focal deficit - Assessment and Plan (1) Cellulitis of left foot Status: Acute Status post left foot fracture 05/03/2019 requiring open reduction internal fixation 06/06/2019 necrotic skin tissue being seen by wound care 07/03/2019 arterial study was "well-maintained at rest" Transcutaneous monitoring 07/03/2019 right and left leg is not consistent with healing. Wound was not improving CT left foot 07/10/2019: Multiple foci of air about the joint and hardware with overlying soft tissue irregularity concerning for infection 07/11/2019 Status post left foot debridement, removal of hardware Intra-Op cultures pending but Gram stain showed Raoultella planticola debridement of heel bone, debridement of midfoot bone, and application of graft by Dr. Nicholson on 07/17/2019 repeat intra op cultures gram negative rods with final ID pending Patient started empirically on vancomycin and Zosyn SNOMED Code(s): 543408286 (2) DM type 2 (diabetes mellitus, type 2) Status: Chronic Qualifiers: 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 alf insulin use: with manager terminal use 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 complication status: without complication Qualified Code(s): E11.9 - Type 2 diabetes mellitus without complications; Z79.4 - intermodal customer service (current) use of insulin SNOMED Code(s): 67354657 (3) History of myocardial infarction Status: Acute SNOMED Code(s): 478756610 (4) CAD (coronary artery disease) Status: Acute Qualifiers: Coronary Disease-Associated Artery/Lesion type: [place] artery [place] vs. transplanted heart: [place] heart Associated angina: without angina Qualified Code(s): I25.10 - Atherosclerotic heart disease of [place] coronary artery without angina pectoris SNOMED Code(s): 03758839 (5) Hyperlipidemia Status: Chronic Qualifiers: Hyperlipidemia type: unspecified Qualified Code(s): E78.5 - Hyperlipidemia, unspecified SNOMED Code(s): 41232066 - Recommendations Recommendations: will d/c patient on IV rocephin 2 grams IV q24 hours with plan to treat for at least 6 weeks start flagyl 500 mg po q8hrs for at least 2 weeks until office follow up, if anaerobic cultures remain negative, we will d/c at ahtt time weekly labs including CBC, BUN/Cr, ESR and CRP follow up with me in clinic in 2 weeks appointment made d/w social workder and scripts written Consult Discharge Plan - Plan Referrals: Caio Nicholson DPM [Partnered Physician] - 07/25/19 7:30 am Radha Chinchilla CNP [Primary Care Provider] - (ECF) Morena Galan MD [Partnered Physician] - 08/05/19 10:15 am Prescriptions: metroNIDAZOLE [Flagyl] 500 mg PO TID #126 tablet Atorvastatin [Lipitor] 80 mg PO HS #30 tablet Polyethylene Glycol 3350 [MiraLAX] 17 gm PO DAILY #30 powd.pack HYDROcodone/Acet 7.5/325 mg [[place]al 7.5-325 mg] 1 tab PO Q6H 10 Days #40 tablet cefTRIAXone [Rocephin] 2,000 mg IVPB DAILY #42 vial
== END 2019-07-19 12:55 | DRG 856 ==
LOC: 3ANU 12:15 → EMEROOARM 12:15 → SUATTDRO 16:13 → 3ANU 16:53 → SUATTDRO 07-12 14:28
PROVIDERS: ADMIT Internal Medicine; ATTEND Internal Medicine

== ENCOUNTER 2021-04-08 13:25 | Inpatient (IN) ==
[2021-04-08] MEDS ORDERED: Naloxone 0.4 MG/ML INJ IVP PRN (16:20)
[2021-04-08] MEDS ORDERED: Potassium Chloride 40 MEQ, Lidocaine 1% 2 ML in 0.9 % Sodium Chloride 500 ML IVPB ONE (16:25)
[2021-04-08] MEDS ORDERED: D5% in Water 1,000 ML IVC PRN (16:26)
[2021-04-08] MEDS ORDERED: Dextrose Gel 15 GM/37.5 ML TUBE PO PRN ×2 (16:26)
[2021-04-08] MEDS ORDERED: *HR* Dextrose 50 % in Water (Vial) 50 ML VIAL IVP PRN (16:26)
[2021-04-08] MEDS ORDERED: Ringers Solution, Lactated 1,000 ML IVC SCH (16:30)
[2021-04-08] MEDS: Ondansetron 4 MG/2 ML VIAL IVP PRN (17:11)
[2021-04-08] MEDS ORDERED: Piperacillin/Tazobactam 3.375 GM in 0.9 % Sodium Chloride Mini Bag 100 ML IVPB SCH (18:00)
[2021-04-08] MEDS: Insulin LISPRO 300 UNITS/3 ML VIAL SUBQ SCH (18:24)
[2021-04-08] MEDS ORDERED: *HR* Metoprolol 5 MG/5 ML VIAL IVP PRN (23:53)
[2021-04-09] MEDS ORDERED: Chloraseptic Spray 177 ML BOTTLE MM PRN (00:36)
[2021-04-09] MEDS: Insulin LISPRO 300 UNITS/3 ML VIAL SUBQ SCH ×5 (00:43→21:11)
[2021-04-09 05:51] LABS: Basophils % 0.3 %; Eosinophils # 0.2 K/mcL (0.0-0.6); Eosinophils % 1.7 %; Hematocrit 40.4 % (35.3-44.9); Hemoglobin 13.1 g/dL (11.5-15.4); Immature Granulocytes % 0.3 % (0-4); Lymphocytes % 20.6 %; Mean Corpuscular HGB Conc 32.4 g/dL (31.6-35.5); Mean Corpuscular Volume 83.1 fL (83.0-100.0); Mean Platelet Volume 11.2 fL (9.4-12.4); Monocytes # 0.6 K/mcL (0.0-1.3); Monocytes % 6.3 %; Neutrophils # 6.8 K/mcL (1.6-8.9); Platelet Count 257 K/mcL (140-400); Red Blood Count 4.86 M/mcL (3.82-4.97); Red Cell Distribution Width 14.7 % (11.5-14.5); Segmented Neutrophils % 70.8 %; White Blood Count 9.6 K/mcL (4.3-11.1)
[2021-04-09 06:04] LABS: BUN/Creatinine Ratio 26 (6-26); Blood Urea Nitrogen 15 mg/dL (8-23); Calcium 8.2 mg/dL (8.6-10.3); Carbon Dioxide 31 mEq/L (23-29); Chloride 104 mEq/L (98-107); Glucose 173 mg/dL (70-105); Osmolality,Calculated 301 (280-300); Potassium 3.1 mEq/L (3.5-5.1); Sodium 143 mEq/L (136-145); eGFR For African Americans > 60 (> 60); eGFR For Non-African Americans > 60 (> 60)
[2021-04-09] MEDS ORDERED: Potassium Chloride 40 MEQ, Lidocaine 1% 2 ML in 0.9 % Sodium Chloride 500 ML IVPB ONE (07:02)
[2021-04-09] MEDS ORDERED: Ringers Solution, Lactated 1,000 ML IVC SCH (07:15)
[2021-04-09] MEDS ORDERED: Fluticasone Propionate Nasal 50 MCG/SPRAY BOTTLE NS SCH (09:00)
[2021-04-09] MEDS ORDERED: Ipratropium/Albuterol Neb 3 ML IH SCH (12:00)
[2021-04-09] MEDS: Ipratropium/Albuterol Neb 3 ML IH SCH ×2 (15:55→22:07)
[2021-04-09] MEDS: ALPRAZolam 1 MG TABLET PO SCH (20:54)
[2021-04-09] MEDS: traZODone 50 MG TABLET PO SCH (20:54)
[2021-04-10] MEDS: Ipratropium/Albuterol Neb 3 ML IH SCH ×4 (03:28→22:50)
[2021-04-10 06:28] LABS: Hematocrit 36.5 % (35.3-44.9); Mean Corpuscular Hemoglobin 26.7 pg (28.0-33.3); Mean Corpuscular Volume 86.3 fL (83.0-100.0); Mean Platelet Volume 10.8 fL (9.4-12.4); Platelet Count 181 K/mcL (140-400); Red Blood Count 4.23 M/mcL (3.82-4.97); Red Cell Distribution Width 15.1 % (11.5-14.5); White Blood Count 5.8 K/mcL (4.3-11.1)
[2021-04-10 06:29] LABS: Hemoglobin 11.3 g/dL (11.5-15.4)
[2021-04-10 06:50] LABS: BUN/Creatinine Ratio 24 (6-26); Blood Urea Nitrogen 14 mg/dL (8-23); Calcium 8.1 mg/dL (8.6-10.3); Carbon Dioxide 34 mEq/L (23-29); Chloride 105 mEq/L (98-107); Glucose 136 mg/dL (70-105); Osmolality,Calculated 301 (280-300); Sodium 144 mEq/L (136-145); eGFR For African Americans > 60 (> 60); eGFR For Non-African Americans > 60 (> 60)
[2021-04-10] MEDS: Insulin LISPRO 300 UNITS/3 ML VIAL SUBQ SCH ×4 (10:31→20:51)
[2021-04-10] MEDS: Metoprolol XL (24 HR) Succ 25 MG TAB.ER.24H PO SCH (10:38)
[2021-04-10] MEDS: Aspirin Enteric Coated 81 MG Tablet PO SCH (10:38)
[2021-04-10] MEDS: ALPRAZolam 1 MG TABLET PO SCH ×2 (10:38→20:52)
[2021-04-10] MEDS: lisinopriL 5 MG TABLET PO SCH (10:38)
[2021-04-10] MEDS: traZODone 50 MG TABLET PO SCH (19:40)
[2021-04-11] MEDS: Ipratropium/Albuterol Neb 3 ML IH SCH ×4 (03:33→22:38)
[2021-04-11] MEDS: lisinopriL 5 MG TABLET PO SCH (05:18)
[2021-04-11] MEDS: Aspirin Enteric Coated 81 MG Tablet PO SCH (05:18)
[2021-04-11] MEDS: Metoprolol XL (24 HR) Succ 25 MG TAB.ER.24H PO SCH (05:19)
[2021-04-11] MEDS: ALPRAZolam 1 MG TABLET PO SCH (08:06)
[2021-04-11] MEDS: Ondansetron 4 MG/2 ML VIAL IVP PRN (08:06)
[2021-04-11] MEDS ORDERED: Isovue-370 500 ML BOTTLE IVP ONE (09:55)
[2021-04-11 10:35] LABS: Basophils % 0.2 %; Eosinophils # 0.1 K/mcL (0.0-0.6); Eosinophils % 0.9 %; Hematocrit 38.7 % (35.3-44.9); Hemoglobin 12.4 g/dL (11.5-15.4); Immature Granulocytes % 0.5 % (0-4); Lymphocytes # 0.9 K/mcL (0.6-4.6); Lymphocytes % 6.3 %; Mean Corpuscular Hemoglobin 27.4 pg (28.0-33.3); Mean Corpuscular Volume 85.4 fL (83.0-100.0); Monocytes # 0.4 K/mcL (0.0-1.3); Monocytes % 3.2 %; Neutrophils # 12.4 K/mcL (1.6-8.9); Platelet Count 199 K/mcL (140-400); Red Blood Count 4.53 M/mcL (3.82-4.97); Red Cell Distribution Width 14.8 % (11.5-14.5); Segmented Neutrophils % 88.9 %
[2021-04-11 10:36] LABS: White Blood Count 13.9 K/mcL (4.3-11.1)
[2021-04-11 10:55] LABS: BUN/Creatinine Ratio 25 (6-26); Blood Urea Nitrogen 16 mg/dL (8-23); Calcium 8.5 mg/dL (8.6-10.3); Carbon Dioxide 35 mEq/L (23-29); Chloride 99 mEq/L (98-107); Glucose 238 mg/dL (70-105); Osmolality,Calculated 299 (280-300); Potassium 3.4 mEq/L (3.5-5.1); Sodium 140 mEq/L (136-145); eGFR For African Americans > 60 (> 60); eGFR For Non-African Americans > 60 (> 60)
[2021-04-11] MEDS: Insulin LISPRO 300 UNITS/3 ML VIAL SUBQ SCH ×3 (11:21→21:36)
[2021-04-11] MEDS: Piperacillin/Tazobactam 3.375 GM in 0.9 % Sodium Chloride Mini Bag 100 ML IVPB SCH ×2 (11:40→21:36)
[2021-04-11] MEDS: 0.9 % Sodium Chloride 1,000 ML IVC SCH ×3 (11:41→22:04)
[2021-04-11 15:55] LABS: Influenza A PCR Negative (Negative); Influenza B PCR Negative (Negative); Resp. Syncytial Virus PCR Negative (Negative)
[2021-04-11 15:58] LABS: SARS-CoV-2 by PCR (In House) Negative (Negative)
[2021-04-11] MEDS ORDERED: Acetaminophen IV 1,000 MG/100 ML BAG IVPB ONE ×2 (16:24→17:15)
[2021-04-11] MEDS ORDERED: Nitroglycerin 0.4 MG TAB.SUBL SL PRN ×2 (16:26→22:17)
[2021-04-11] MEDS ORDERED: Albuterol 2.5 MG/3 ML NEBULIZER IH PRN ×2 (16:26→22:17)
[2021-04-11] MEDS ORDERED: Naloxone 0.4 MG/ML INJ IVP PRN ×3 (16:26→22:17)
[2021-04-11] MEDS ORDERED: *HR* Etomidate 40 MG/20 ML VIAL IVP ONE (16:31)
[2021-04-11] MEDS ORDERED: *HR* Rocuronium Bromide 50 MG/5 ML VIAL ONE (16:31)
[2021-04-11] MEDS ORDERED: *HR* Succinylcholine 200 MG/10 ML VIAL IVP ONE (16:31)
[2021-04-11] MEDS ORDERED: *HR* FentaNYL (PF) 100 MCG/2 ML VIAL ONE ×2 (17:44→17:45)
[2021-04-11] MEDS ORDERED: Ondansetron 4 MG/2 ML VIAL ONE (18:08)
[2021-04-11] MEDS: *HR* FentaNYL (PF) 100 MCG/2 ML VIAL IVP PRN ×5 (19:45→22:17)
[2021-04-11] MEDS: traZODone 50 MG TABLET PO SCH (21:37)
[2021-04-11] MEDS ORDERED: *HR* Metoprolol 5 MG/5 ML VIAL IVP PRN (22:17)
[2021-04-11] MEDS ORDERED: Dextrose Gel 15 GM/37.5 ML TUBE PO PRN ×2 (22:17)
[2021-04-11] MEDS ORDERED: *HR* Dextrose 50 % in Water (Vial) 50 ML VIAL IVP PRN (22:17)
[2021-04-11] MEDS ORDERED: *HR* FentaNYL (PF) 100 MCG/2 ML VIAL IVP PRN (22:17)
[2021-04-11] MEDS ORDERED: D5% in Water 1,000 ML IVC PRN (22:17)
[2021-04-11] MEDS ORDERED: Chloraseptic Spray 177 ML BOTTLE MM PRN (22:17)
[2021-04-11] MEDS ORDERED: Ipratropium/Albuterol Neb 3 ML ONE (22:39)
[2021-04-11] MEDS ORDERED: 0.9 % Sodium Chloride 1,000 ML IVC ONE (23:45)
[2021-04-12 00:22] LABS: Hematocrit 36.8 % (35.3-44.9); Hemoglobin 11.2 g/dL (11.5-15.4); Mean Corpuscular HGB Conc 30.4 g/dL (31.6-35.5); Mean Corpuscular Volume 85.6 fL (83.0-100.0); Mean Platelet Volume 11.5 fL (9.4-12.4); Platelet Count 267 K/mcL (140-400); Red Cell Distribution Width 15.3 % (11.5-14.5); White Blood Count 11.6 K/mcL (4.3-11.1)
[2021-04-12 00:28] LABS: BUN/Creatinine Ratio 22 (6-26); Blood Urea Nitrogen 19 mg/dL (8-23); Calcium 7.7 mg/dL (8.6-10.3); Carbon Dioxide 29 mEq/L (23-29); Chloride 101 mEq/L (98-107); Glucose 269 mg/dL (70-105); Osmolality,Calculated 304 (280-300); Potassium 3.2 mEq/L (3.5-5.1); Sodium 141 mEq/L (136-145); eGFR For African Americans > 60 (> 60); eGFR For Non-African Americans > 60 (> 60)
[2021-04-12 00:43] LABS: Lymphocytes # 0.5 K/mcL (0.6-4.6); Monocytes # 0.2 K/mcL (0.0-1.3); Neutrophils # 10.9 K/mcL (1.6-8.9); Platelet Estimate Normal (Normal)
[2021-04-12 00:44] LABS: Toxic Granulation Present (Not Present)
[2021-04-12] MEDS ORDERED: 0.9 % Sodium Chloride 500 ML IVC ONE (01:19)
[2021-04-12] MEDS: Piperacillin/Tazobactam 3.375 GM in 0.9 % Sodium Chloride Mini Bag 100 ML IVPB SCH ×3 (01:39→17:08)
[2021-04-12] MEDS ORDERED: Potassium Chloride 40 MEQ, Lidocaine 1% 2 ML in 0.9 % Sodium Chloride 500 ML IVPB ONE (01:45)
[2021-04-12] MEDS: Ondansetron 4 MG/2 ML VIAL IVP PRN (02:09)
[2021-04-12] MEDS: 0.9 % Sodium Chloride 1,000 ML IVC SCH (02:26)
[2021-04-12] MEDS: Ipratropium/Albuterol Neb 3 ML IH SCH ×4 (03:55→22:55)
[2021-04-12] MEDS: Insulin LISPRO 300 UNITS/3 ML VIAL SUBQ SCH ×4 (07:12→20:11)
[2021-04-12] MEDS ORDERED: Insulin LISPRO 300 UNITS/3 ML VIAL SUBQ SCH ×3 (07:30→21:00)
[2021-04-12] MEDS: Metoprolol XL (24 HR) Succ 25 MG TAB.ER.24H PO SCH (07:52)
[2021-04-12] MEDS: lisinopriL 5 MG TABLET PO SCH (07:52)
[2021-04-12] MEDS: Aspirin Enteric Coated 81 MG Tablet PO SCH (07:52)
[2021-04-12] MEDS ORDERED: Acetaminophen IV 1,000 MG/100 ML BAG IVPB PRN ×2 (08:39→08:45)
[2021-04-12 09:27] LABS: ABG Base Excess 3 mEq/L (-2 to 3); ABG HCO3 31 mEq/L (21-27); ABG Oxygen Saturation 93 % (95-98); ABG PCO2 65 mmHg (35-45); ABG PH 7.29 pH Units (7.32-7.45); ABG PO2 77 mmHg (85-104); ABG TCO2 33 mEq/L (20-26)
[2021-04-12 10:39] LABS: Magnesium 1.9 mg/dL (1.6-2.6)
[2021-04-12 10:47] LABS: Troponin I 0.14 ng/mL (< 0.04)
[2021-04-12] MEDS ORDERED: 0.9 % Sodium Chloride 1,000 ML IV ONE (11:14)
[2021-04-12] MEDS ORDERED: 0.9 % Sodium Chloride 1,000 ML ONE (11:15)
[2021-04-12] MEDS: traZODone 50 MG TABLET PO SCH (16:31)
[2021-04-13] MEDS: Piperacillin/Tazobactam 3.375 GM in 0.9 % Sodium Chloride Mini Bag 100 ML IVPB SCH ×4 (00:28→23:28)
[2021-04-13] MEDS: Insulin LISPRO 300 UNITS/3 ML VIAL SUBQ SCH ×7 (00:28→23:39)
[2021-04-13] MEDS: Ondansetron 4 MG/2 ML VIAL IVP PRN (00:41)
[2021-04-13] MEDS: Ipratropium/Albuterol Neb 3 ML IH SCH ×4 (04:04→22:41)
[2021-04-13 04:43] LABS: Hematocrit 29.5 % (35.3-44.9); Mean Corpuscular HGB Conc 30.2 g/dL (31.6-35.5); Mean Corpuscular Hemoglobin 25.9 pg (28.0-33.3); Mean Platelet Volume 11.7 fL (9.4-12.4); Platelet Count 208 K/mcL (140-400); Red Blood Count 3.43 M/mcL (3.82-4.97); Red Cell Distribution Width 15.9 % (11.5-14.5); White Blood Count 12.2 K/mcL (4.3-11.1)
[2021-04-13 04:55] LABS: Hemoglobin 8.9 g/dL (11.5-15.4)
[2021-04-13 04:59] LABS: Albumin 2.4 g/dL (3.5-5.7); Albumin/Globulin Ratio 0.9 (1.1-2.2); Bilirubin,Total 0.7 mg/dL (0.3-1.0); Calcium 7.4 mg/dL (8.6-10.3); Globulin 2.8 g/dL (2.4-3.5); Potassium 3.8 mEq/L (3.5-5.1); Total Protein 5.2 g/dL (6.4-8.9)
[2021-04-13 05:31] LABS: Lymphocytes # 0.5 K/mcL (0.6-4.6); Monocytes # 0.2 K/mcL (0.0-1.3); Neutrophils # 11.5 K/mcL (1.6-8.9)
[2021-04-13 05:32] LABS: Platelet Estimate Normal (Normal)
[2021-04-13 05:39] LABS: VBG HCO3 30 mEq/L (21-27); VBG PCO2 56 mmHg (41-51); VBG PH 7.34 pH Units (7.32-7.42); VBG PO2 206 mmHg (25-50)
[2021-04-13] MEDS: Aspirin Enteric Coated 81 MG Tablet PO SCH (08:20)
[2021-04-13] MEDS: lisinopriL 5 MG TABLET PO SCH (08:21)
[2021-04-13] MEDS: Metoprolol XL (24 HR) Succ 25 MG TAB.ER.24H PO SCH (08:21)
[2021-04-13] MEDS ORDERED: Ringers Solution, Lactated 1,000 ML IVC ONE (08:30)
[2021-04-13 17:34] LABS: Hematocrit 27.6 % (35.3-44.9); Hemoglobin 8.4 g/dL (11.5-15.4)
[2021-04-13] MEDS: traZODone 50 MG TABLET PO SCH (17:37)
[2021-04-14 03:07] LABS: Basophils % 0.2 %; Eosinophils # 0.1 K/mcL (0.0-0.6); Eosinophils % 0.4 %; Hematocrit 26.9 % (35.3-44.9); Hemoglobin 8.3 g/dL (11.5-15.4); Immature Granulocytes % 1.3 % (0-4); Lymphocytes # 0.8 K/mcL (0.6-4.6); Lymphocytes % 6.4 %; Mean Corpuscular HGB Conc 30.9 g/dL (31.6-35.5); Mean Corpuscular Volume 87.6 fL (83.0-100.0); Mean Platelet Volume 11.1 fL (9.4-12.4); Monocytes # 0.6 K/mcL (0.0-1.3); Monocytes % 4.8 %; Neutrophils # 10.4 K/mcL (1.6-8.9); Platelet Count 210 K/mcL (140-400); Red Blood Count 3.07 M/mcL (3.82-4.97); Red Cell Distribution Width 15.8 % (11.5-14.5); Segmented Neutrophils % 86.9 %; White Blood Count 11.9 K/mcL (4.3-11.1)
[2021-04-14 03:26] LABS: BUN/Creatinine Ratio 42 (6-26); Blood Urea Nitrogen 42 mg/dL (8-23); Calcium 7.7 mg/dL (8.6-10.3); Carbon Dioxide 29 mEq/L (23-29); Chloride 111 mEq/L (98-107); Glucose 115 mg/dL (70-105); Osmolality,Calculated 317 (280-300); Potassium 3.6 mEq/L (3.5-5.1); Sodium 148 mEq/L (136-145); eGFR For African Americans > 60 (> 60); eGFR For Non-African Americans 55 (> 60)
[2021-04-14] MEDS: Ipratropium/Albuterol Neb 3 ML IH SCH ×4 (03:58→22:10)
[2021-04-14] MEDS: Insulin LISPRO 300 UNITS/3 ML VIAL SUBQ SCH ×6 (04:08→23:45)
[2021-04-14] MEDS: lisinopriL 5 MG TABLET PO SCH (07:11)
[2021-04-14] MEDS: Aspirin Enteric Coated 81 MG Tablet PO SCH (07:11)
[2021-04-14] MEDS: Metoprolol XL (24 HR) Succ 25 MG TAB.ER.24H PO SCH (07:11)
[2021-04-14] MEDS: Piperacillin/Tazobactam 3.375 GM in 0.9 % Sodium Chloride Mini Bag 100 ML IVPB SCH ×3 (07:37→23:44)
[2021-04-14] MEDS ORDERED: D5% in Water 1,000 ML IVC SCH (13:30)
[2021-04-14] MEDS: *HR* Heparin 5,000 UNIT/ML VIAL SQ SCH ×2 (14:02→22:15)
[2021-04-14] MEDS: traZODone 50 MG TABLET PO SCH (18:57)
[2021-04-15] MEDS: traZODone 50 MG TABLET PO SCH (00:55)
[2021-04-15] MEDS: Ipratropium/Albuterol Neb 3 ML IH SCH ×4 (03:57→20:34)
[2021-04-15] MEDS: Insulin LISPRO 300 UNITS/3 ML VIAL SUBQ SCH ×6 (04:22→23:30)
[2021-04-15] MEDS: *HR* Heparin 5,000 UNIT/ML VIAL SQ SCH ×3 (04:22→20:18)
[2021-04-15 05:46] LABS: Hematocrit 26.6 % (35.3-44.9); Mean Corpuscular HGB Conc 30.1 g/dL (31.6-35.5); Mean Corpuscular Hemoglobin 26.3 pg (28.0-33.3); Mean Corpuscular Volume 87.5 fL (83.0-100.0); Mean Platelet Volume 10.9 fL (9.4-12.4); Platelet Count 219 K/mcL (140-400); Red Blood Count 3.04 M/mcL (3.82-4.97); Red Cell Distribution Width 15.5 % (11.5-14.5); White Blood Count 8.1 K/mcL (4.3-11.1)
[2021-04-15 06:16] LABS: BUN/Creatinine Ratio 38 (6-26); Blood Urea Nitrogen 32 mg/dL (8-23); Carbon Dioxide 35 mEq/L (23-29); Chloride 109 mEq/L (98-107); Glucose 120 mg/dL (70-105); Magnesium 2.1 mg/dL (1.6-2.6); Osmolality,Calculated 314 (280-300); Potassium 3.4 mEq/L (3.5-5.1); Sodium 148 mEq/L (136-145); eGFR For African Americans > 60 (> 60); eGFR For Non-African Americans > 60 (> 60)
[2021-04-15] MEDS: Piperacillin/Tazobactam 3.375 GM in 0.9 % Sodium Chloride Mini Bag 100 ML IVPB SCH ×3 (08:09→23:27)
[2021-04-15] MEDS: Metoprolol XL (24 HR) Succ 25 MG TAB.ER.24H PO SCH (08:09)
[2021-04-15] MEDS: Aspirin Enteric Coated 81 MG Tablet PO SCH (08:09)
[2021-04-15] MEDS: lisinopriL 5 MG TABLET PO SCH (08:09)
[2021-04-15] MEDS: D5% in Water 1,000 ML IVC SCH ×2 (09:19→17:31)
[2021-04-15] MEDS ORDERED: *HR* LORazepam 2 MG/ML VIAL IVP ONE ×2 (21:16→22:11)
[2021-04-15] MEDS ORDERED: Acetaminophen IV 1,000 MG/100 ML BAG IVPB ONE (22:19)
[2021-04-16] MEDS ORDERED: Haloperidol Lactate 5 MG/ML VIAL IVP ONE (00:55)
[2021-04-16 01:36] LABS: Basophils % 0.4 %; Eosinophils # 0.2 K/mcL (0.0-0.6); Eosinophils % 2.6 %; Hemoglobin 7.5 g/dL (11.5-15.4); Immature Granulocytes % 0.3 % (0-4); Lymphocytes # 1.4 K/mcL (0.6-4.6); Lymphocytes % 18.9 %; Mean Corpuscular Hemoglobin 25.8 pg (28.0-33.3); Mean Corpuscular Volume 85.9 fL (83.0-100.0); Mean Platelet Volume 11.1 fL (9.4-12.4); Monocytes # 0.6 K/mcL (0.0-1.3); Monocytes % 8.2 %; Platelet Count 226 K/mcL (140-400); Red Blood Count 2.91 M/mcL (3.82-4.97); Red Cell Distribution Width 14.9 % (11.5-14.5); Segmented Neutrophils % 69.6 %; White Blood Count 7.2 K/mcL (4.3-11.1)
[2021-04-16] MEDS: D5% in Water 1,000 ML IVC SCH (01:37)
[2021-04-16 01:51] LABS: BUN/Creatinine Ratio 29 (6-26); Blood Urea Nitrogen 22 mg/dL (8-23); Calcium 7.8 mg/dL (8.6-10.3); Carbon Dioxide 35 mEq/L (23-29); Chloride 102 mEq/L (98-107); Glucose 132 mg/dL (70-105); Osmolality,Calculated 297 (280-300); Potassium 2.7 mEq/L (3.5-5.1); Sodium 141 mEq/L (136-145); eGFR For African Americans > 60 (> 60); eGFR For Non-African Americans > 60 (> 60)
[2021-04-16 01:57] LABS: Troponin I 0.42 ng/mL (< 0.04)
[2021-04-16] MEDS ORDERED: *HR* Heparin 5,000 UNIT/ML VIAL IVP PRN ×2 (02:12)
[2021-04-16] MEDS ORDERED: *HR* Heparin 5,000 UNIT/ML VIAL IVP ONE (02:12)
[2021-04-16] MEDS ORDERED: Heparin 25,000UNIT/250ML 1/2NS 25,000 UNIT/250 ML IV.SOLN IVC SCH (02:15)
[2021-04-16] MEDS ORDERED: Potassium Chloride 40 MEQ, Lidocaine 1% 2 ML in 0.9 % Sodium Chloride 500 ML IVPB ONE (02:35)
[2021-04-16] MEDS ORDERED: Isovue-370 500 ML BOTTLE IVP ONE (02:43)
[2021-04-16] MEDS: Calcium Gluconate 1gm/50mL 1 GM/50 ML BAG IVPB SCH ×2 (03:44→04:32)
[2021-04-16] MEDS: Ipratropium/Albuterol Neb 3 ML IH SCH ×4 (04:16→21:40)
[2021-04-16] MEDS: Insulin LISPRO 300 UNITS/3 ML VIAL SUBQ SCH ×4 (04:32→17:33)
[2021-04-16 05:16] LABS: ABG Base Excess 10 mEq/L (-2 to 3); ABG HCO3 36 mEq/L (21-27); ABG Oxygen Saturation 95 % (95-98); ABG PCO2 60 mmHg (35-45); ABG PH 7.39 pH Units (7.32-7.45); ABG PO2 80 mmHg (85-104); ABG TCO2 38 mEq/L (20-26)
[2021-04-16 05:39] LABS: Hematocrit 24.5 % (35.3-44.9); Hemoglobin 7.4 g/dL (11.5-15.4); Mean Corpuscular HGB Conc 30.2 g/dL (31.6-35.5); Mean Corpuscular Hemoglobin 26.1 pg (28.0-33.3); Mean Corpuscular Volume 86.6 fL (83.0-100.0); Mean Platelet Volume 10.9 fL (9.4-12.4); Platelet Count 222 K/mcL (140-400); Red Blood Count 2.83 M/mcL (3.82-4.97); White Blood Count 6.5 K/mcL (4.3-11.1)
[2021-04-16 05:46] LABS: Heparin anti-factor XA UFH < 0.04 IU/mL (0.30-0.70); INR 1.1; Prothrombin Time 12.5 Seconds (9.4-12.1)
[2021-04-16] MEDS: Piperacillin/Tazobactam 3.375 GM in 0.9 % Sodium Chloride Mini Bag 100 ML IVPB SCH ×2 (07:51→15:14)
[2021-04-16] MEDS: Aspirin Enteric Coated 81 MG Tablet PO SCH (07:51)
[2021-04-16] MEDS: Metoprolol XL (24 HR) Succ 25 MG TAB.ER.24H PO SCH (07:52)
[2021-04-16] MEDS: lisinopriL 5 MG TABLET PO SCH (07:52)
[2021-04-16 09:58] LABS: Hematocrit 25.5 % (35.3-44.9); Hemoglobin 7.7 g/dL (11.5-15.4)
[2021-04-16] MEDS ORDERED: Perflutren Lipid Microsphere 1.3 ML in 0.9 % Sodium Chloride 8.7 ML IVP PRN (11:38)
[2021-04-16 13:07] LABS: Hemoglobin 7.9 g/dL (11.5-15.4)
[2021-04-16 15:59] LABS: Hematocrit 26.3 % (35.3-44.9); Hemoglobin 8.2 g/dL (11.5-15.4)
[2021-04-16 16:10] LABS: VBG HCO3 34 mEq/L (21-27); VBG PCO2 56 mmHg (41-51); VBG PH 7.39 pH Units (7.32-7.42); VBG PO2 65 mmHg (25-50)
[2021-04-16 16:26] LABS: BUN/Creatinine Ratio 26 (6-26); Blood Urea Nitrogen 19 mg/dL (8-23); Calcium 8.2 mg/dL (8.6-10.3); Carbon Dioxide 35 mEq/L (23-29); Chloride 103 mEq/L (98-107); Glucose 140 mg/dL (70-105); Magnesium 1.8 mg/dL (1.6-2.6); Osmolality,Calculated 299 (280-300); Potassium 3.2 mEq/L (3.5-5.1); Sodium 142 mEq/L (136-145); eGFR For African Americans > 60 (> 60); eGFR For Non-African Americans > 60 (> 60)
[2021-04-16] MEDS: traZODone 50 MG TABLET PO SCH (18:43)
[2021-04-16] MEDS: QUEtiapine Fumarate 25 MG TABLET PO SCH (20:10)
[2021-04-17] MEDS: Piperacillin/Tazobactam 3.375 GM in 0.9 % Sodium Chloride Mini Bag 100 ML IVPB SCH (00:40)
[2021-04-17] MEDS: Insulin LISPRO 300 UNITS/3 ML VIAL SUBQ SCH ×5 (00:40→23:50)
[2021-04-17] MEDS: Ipratropium/Albuterol Neb 3 ML IH SCH ×4 (03:33→21:36)
[2021-04-17 05:33] LABS: Basophils % 0.1 %; Eosinophils # 0.2 K/mcL (0.0-0.6); Eosinophils % 2.7 %; Hematocrit 24.5 % (35.3-44.9); Hemoglobin 7.8 g/dL (11.5-15.4); Immature Granulocytes % 0.5 % (0-4); Lymphocytes # 1.2 K/mcL (0.6-4.6); Lymphocytes % 15.8 %; Mean Corpuscular HGB Conc 31.8 g/dL (31.6-35.5); Mean Corpuscular Hemoglobin 27.1 pg (28.0-33.3); Mean Corpuscular Volume 85.1 fL (83.0-100.0); Mean Platelet Volume 10.8 fL (9.4-12.4); Monocytes # 0.7 K/mcL (0.0-1.3); Monocytes % 9.1 %; Platelet Count 266 K/mcL (140-400); Red Blood Count 2.88 M/mcL (3.82-4.97); Red Cell Distribution Width 14.7 % (11.5-14.5); Segmented Neutrophils % 71.8 %; White Blood Count 7.5 K/mcL (4.3-11.1)
[2021-04-17 05:39] LABS: Neutrophils # 5.4 K/mcL (1.6-8.9)
[2021-04-17 05:54] LABS: BUN/Creatinine Ratio 28 (6-26); Blood Urea Nitrogen 20 mg/dL (8-23); Calcium 8.2 mg/dL (8.6-10.3); Carbon Dioxide 34 mEq/L (23-29); Chloride 105 mEq/L (98-107); Glucose 94 mg/dL (70-105); Osmolality,Calculated 300 (280-300); Potassium 3.2 mEq/L (3.5-5.1); Sodium 144 mEq/L (136-145); eGFR For African Americans > 60 (> 60); eGFR For Non-African Americans > 60 (> 60)
[2021-04-17] MEDS: Metoprolol XL (24 HR) Succ 25 MG TAB.ER.24H PO SCH (05:56)
[2021-04-17] MEDS: Aspirin Enteric Coated 81 MG Tablet PO SCH (05:56)
[2021-04-17] MEDS: lisinopriL 5 MG TABLET PO SCH (05:56)
[2021-04-17 05:57] LABS: Platelet Estimate Normal (Normal)
[2021-04-17 05:58] LABS: Reactive Lymphocytes Present (Not Present)
[2021-04-17] MEDS: predniSONE 20 MG TABLET PO SCH (08:20)
[2021-04-17] MEDS ORDERED: Furosemide 40 MG/4 ML VIAL IVP SCH (09:00)
[2021-04-17] MEDS: Mag Hydrox/Al Hydrox/Simeth 30 ML UDC PO PRN (10:43)
[2021-04-17] MEDS: traZODone 50 MG TABLET PO SCH (18:36)
[2021-04-17] MEDS: QUEtiapine Fumarate 25 MG TABLET PO SCH (21:15)
[2021-04-18 03:19] LABS: Hematocrit 25.7 % (35.3-44.9); Mean Corpuscular HGB Conc 31.1 g/dL (31.6-35.5); Mean Corpuscular Hemoglobin 26.3 pg (28.0-33.3); Mean Corpuscular Volume 84.5 fL (83.0-100.0); Mean Platelet Volume 11.4 fL (9.4-12.4); Platelet Count 332 K/mcL (140-400); Red Blood Count 3.04 M/mcL (3.82-4.97); Red Cell Distribution Width 14.7 % (11.5-14.5); White Blood Count 9.6 K/mcL (4.3-11.1)
[2021-04-18] MEDS: Ipratropium/Albuterol Neb 3 ML IH SCH ×4 (03:38→22:32)
[2021-04-18] MEDS: Aspirin Enteric Coated 81 MG Tablet PO SCH (05:38)
[2021-04-18] MEDS: Metoprolol XL (24 HR) Succ 25 MG TAB.ER.24H PO SCH (05:38)
[2021-04-18] MEDS: lisinopriL 5 MG TABLET PO SCH (05:38)
[2021-04-18 05:46] LABS: BUN/Creatinine Ratio 32 (6-26); Blood Urea Nitrogen 23 mg/dL (8-23); Calcium 8.2 mg/dL (8.6-10.3); Carbon Dioxide 35 mEq/L (23-29); Chloride 100 mEq/L (98-107); Glucose 257 mg/dL (70-105); Osmolality,Calculated 302 (280-300); Potassium 4.2 mEq/L (3.5-5.1); Sodium 140 mEq/L (136-145); eGFR For African Americans > 60 (> 60); eGFR For Non-African Americans > 60 (> 60)
[2021-04-18] MEDS: Insulin LISPRO 300 UNITS/3 ML VIAL SUBQ SCH ×4 (06:02→20:24)
[2021-04-18] MEDS: predniSONE 20 MG TABLET PO SCH (09:41)
[2021-04-18] MEDS: Furosemide 40 MG/4 ML VIAL IVP SCH ×2 (09:41→16:31)
[2021-04-18] MEDS ORDERED: D5% in Water 1,000 ML IVC PRN (11:15)
[2021-04-18] MEDS ORDERED: Dextrose Gel 15 GM/37.5 ML TUBE PO PRN ×2 (11:15)
[2021-04-18] MEDS ORDERED: *HR* Dextrose 50 % in Water (Vial) 50 ML VIAL IVP PRN (11:15)
[2021-04-18] MEDS: traZODone 50 MG TABLET PO SCH (18:20)
[2021-04-18] MEDS: QUEtiapine Fumarate 25 MG TABLET PO SCH (20:23)
[2021-04-19] MEDS: Ipratropium/Albuterol Neb 3 ML IH SCH ×4 (04:13→22:21)
[2021-04-19] MEDS: Insulin LISPRO 300 UNITS/3 ML VIAL SUBQ SCH ×4 (07:34→20:42)
[2021-04-19] MEDS: Furosemide 40 MG/4 ML VIAL IVP SCH ×2 (07:35→16:51)
[2021-04-19] MEDS: lisinopriL 5 MG TABLET PO SCH (07:36)
[2021-04-19] MEDS: predniSONE 20 MG TABLET PO SCH (07:36)
[2021-04-19] MEDS: Aspirin Enteric Coated 81 MG Tablet PO SCH (07:36)
[2021-04-19] MEDS: Metoprolol XL (24 HR) Succ 25 MG TAB.ER.24H PO SCH (07:36)
[2021-04-19 08:23] LABS: BUN/Creatinine Ratio 26 (6-26); Blood Urea Nitrogen 22 mg/dL (8-23); Calcium 7.9 mg/dL (8.6-10.3); Carbon Dioxide 39 mEq/L (23-29); Chloride 95 mEq/L (98-107); Glucose 202 mg/dL (70-105); Magnesium 1.7 mg/dL (1.6-2.6); Osmolality,Calculated 297 (280-300); Potassium 3.2 mEq/L (3.5-5.1); Sodium 139 mEq/L (136-145); eGFR For African Americans > 60 (> 60); eGFR For Non-African Americans > 60 (> 60)
[2021-04-19] MEDS: traZODone 50 MG TABLET PO SCH (18:43)
[2021-04-19] MEDS: QUEtiapine Fumarate 25 MG TABLET PO SCH (20:42)
[2021-04-20] MEDS: Ipratropium/Albuterol Neb 3 ML IH SCH ×4 (04:00→22:20)
[2021-04-20] MEDS: Metoprolol XL (24 HR) Succ 25 MG TAB.ER.24H PO SCH (05:57)
[2021-04-20] MEDS: Aspirin Enteric Coated 81 MG Tablet PO SCH (05:57)
[2021-04-20] MEDS: lisinopriL 5 MG TABLET PO SCH (05:57)
[2021-04-20] MEDS: predniSONE 20 MG TABLET PO SCH (07:36)
[2021-04-20] MEDS: Furosemide 40 MG/4 ML VIAL IVP SCH ×2 (07:37→16:50)
[2021-04-20] MEDS: Insulin LISPRO 300 UNITS/3 ML VIAL SUBQ SCH ×4 (07:38→21:17)
[2021-04-20] MEDS: traZODone 50 MG TABLET PO SCH (19:38)
[2021-04-21] MEDS: Ipratropium/Albuterol Neb 3 ML IH SCH ×4 (03:59→21:52)
[2021-04-21] MEDS: Mag Hydrox/Al Hydrox/Simeth 30 ML UDC PO PRN (04:36)
[2021-04-21 06:42] LABS: BUN/Creatinine Ratio 37 (6-26); Blood Urea Nitrogen 40 mg/dL (8-23); Calcium 8.8 mg/dL (8.6-10.3); Carbon Dioxide 40 mEq/L (23-29); Chloride 95 mEq/L (98-107); Glucose 191 mg/dL (70-105); Osmolality,Calculated 307 (280-300); Potassium 4.1 mEq/L (3.5-5.1); Sodium 141 mEq/L (136-145); eGFR For African Americans > 60 (> 60); eGFR For Non-African Americans 51 (> 60)
[2021-04-21] MEDS: lisinopriL 5 MG TABLET PO SCH (08:06)
[2021-04-21] MEDS: predniSONE 20 MG TABLET PO SCH (08:06)
[2021-04-21] MEDS: Aspirin Enteric Coated 81 MG Tablet PO SCH (08:06)
[2021-04-21] MEDS: Furosemide 40 MG/4 ML VIAL IVP SCH (08:07)
[2021-04-21] MEDS: Metoprolol XL (24 HR) Succ 25 MG TAB.ER.24H PO SCH (08:07)
[2021-04-21] MEDS: Insulin LISPRO 300 UNITS/3 ML VIAL SUBQ SCH ×4 (08:08→20:10)
[2021-04-21] MEDS ORDERED: Furosemide 20 MG TABLET PO SCH (09:00)
[2021-04-21] MEDS: traZODone 50 MG TABLET PO SCH (20:04)
[2021-04-22] MEDS: Ipratropium/Albuterol Neb 3 ML IH SCH ×2 (03:58→10:44)
[2021-04-22 05:16] LABS: Basophils % 0.2 %; Eosinophils % 0.2 %; Hematocrit 27.3 % (35.3-44.9); Hemoglobin 8.6 g/dL (11.5-15.4); Immature Granulocytes % 0.8 % (0-4); Lymphocytes # 1.9 K/mcL (0.6-4.6); Lymphocytes % 14.5 %; Mean Corpuscular HGB Conc 31.5 g/dL (31.6-35.5); Mean Corpuscular Volume 85.6 fL (83.0-100.0); Mean Platelet Volume 11.2 fL (9.4-12.4); Monocytes # 0.7 K/mcL (0.0-1.3); Monocytes % 5.3 %; Neutrophils # 10.3 K/mcL (1.6-8.9); Platelet Count 497 K/mcL (140-400); Red Blood Count 3.19 M/mcL (3.82-4.97)
[2021-04-22 05:39] LABS: BUN/Creatinine Ratio 38 (6-26); Blood Urea Nitrogen 38 mg/dL (8-23); Calcium 8.6 mg/dL (8.6-10.3); Carbon Dioxide 39 mEq/L (23-29); Chloride 96 mEq/L (98-107); Glucose 147 mg/dL (70-105); Osmolality,Calculated 300 (280-300); Potassium 4.1 mEq/L (3.5-5.1); Sodium 139 mEq/L (136-145); eGFR For African Americans > 60 (> 60); eGFR For Non-African Americans 55 (> 60)
[2021-04-22 07:12] VITALS: BP 145/80
[2021-04-22] MEDS: Metoprolol XL (24 HR) Succ 25 MG TAB.ER.24H PO SCH (08:02)
[2021-04-22] MEDS: predniSONE 20 MG TABLET PO SCH (08:02)
[2021-04-22] MEDS: Aspirin Enteric Coated 81 MG Tablet PO SCH (08:02)
[2021-04-22] MEDS: lisinopriL 5 MG TABLET PO SCH (08:02)
[2021-04-22] MEDS: Insulin LISPRO 300 UNITS/3 ML VIAL SUBQ SCH ×2 (08:05→13:27)
[2021-04-22] MEDS ORDERED: Furosemide 20 MG TABLET PO SCH (09:00)
== END 2021-04-22 15:06 | disposition home health service (06) | DRG 329 ==
LOC: 3ANU → SUATTDRO 04-11 19:38 → 2NNU 04-12 00:19 → 3ANU 04-15 14:17
PROVIDERS: ADMIT Internal Medicine; ATTEND Internal Medicine

== ENCOUNTER 2021-04-27 06:58 | Observation (INO) ==
[2021-04-27] MEDS ORDERED: Piperacillin/Tazobactam 3.375 GM in Water for inj. (sterile) 20 ML IVP ONE (07:25)
[2021-04-27] MEDS ORDERED: Isovue-370 500 ML BOTTLE IVP ONE (07:27)
[2021-04-27] MEDS ORDERED: Vancomycin 1,250 MG/262.5 ML IV.SOLN IVPB ONE (08:00)
[2021-04-27 08:17] LABS: Basophils % 0.2 %; Eosinophils # 0.1 K/mcL (0.0-0.6); Eosinophils % 1.2 %; Hematocrit 28.6 % (35.3-44.9); Hemoglobin 8.9 g/dL (11.5-15.4); Immature Granulocytes % 0.5 % (0-4); Lymphocytes # 0.9 K/mcL (0.6-4.6); Lymphocytes % 9.4 %; Mean Corpuscular HGB Conc 31.1 g/dL (31.6-35.5); Mean Corpuscular Volume 83.6 fL (83.0-100.0); Mean Platelet Volume 11.7 fL (9.4-12.4); Monocytes # 0.8 K/mcL (0.0-1.3); Monocytes % 7.9 %; Neutrophils # 8.1 K/mcL (1.6-8.9); Platelet Count 406 K/mcL (140-400); Red Blood Count 3.42 M/mcL (3.82-4.97); Red Cell Distribution Width 15.1 % (11.5-14.5); Segmented Neutrophils % 80.8 %
[2021-04-27 08:27] LABS: INR 1.2; Prothrombin Time 14.1 Seconds (9.4-12.1)
[2021-04-27 08:39] LABS: Alanine Aminotransferase 6 Units/L (7-52); Albumin 2.8 g/dL (3.5-5.7); Albumin/Globulin Ratio 0.8 (1.1-2.2); Alkaline Phosphatase 71 Units/L (34-104); Aspartate Amino Transferase 8 Units/L (13-39); BUN/Creatinine Ratio 25 (6-26); Bilirubin,Direct 0.3 mg/dL (0.0-0.2); Bilirubin,Indirect 0.6 mg/dL (0.0-1.0); Bilirubin,Total 0.9 mg/dL (0.3-1.0); Blood Urea Nitrogen 17 mg/dL (8-23); Calcium 8.1 mg/dL (8.6-10.3); Carbon Dioxide 31 mEq/L (23-29); Chloride 99 mEq/L (98-107); Globulin 3.4 g/dL (2.4-3.5); Glucose 188 mg/dL (70-105); Lipase 45 Units/L (11-82); Osmolality,Calculated 291 (280-300); Potassium 3.2 mEq/L (3.5-5.1); Sodium 137 mEq/L (136-145); Total Protein 6.2 g/dL (6.4-8.9); Troponin I 0.03 ng/mL (< 0.04); eGFR For African Americans > 60 (> 60); eGFR For Non-African Americans > 60 (> 60)
[2021-04-27 09:15] LABS: Bacteria,Urine Few per hpf (None-Few); Bilirubin,Urine Negative (Negative); Blood,Urine Moderate (Negative); Budding Yeast,Urine Few per hpf (None Seen); Clarity,Urine Turbid (Clear); Color,Urine Yellow (Yellow); Glucose,Urine (UA) Normal (Normal); Ketones,Urine Negative (Negative); Leukocyte Esterase,Urine Large (Negative); Mucus,Urine Few per lpf (None-Few); Nitrite,Urine Negative (Negative); Protein,Urine 100 mg/dL (Neg-Trace); Specific Gravity,Urine 1.019 (1.010-1.025); Squamous Epithelial Cell,Urine Moderate per hpf (None-Few); Transitional Epi Cells,Urine Few per hpf (None-Few)
[2021-04-27] MEDS ORDERED: Naloxone 0.4 MG/ML INJ IVP PRN (10:44)
[2021-04-27] MEDS ORDERED: Isovue-370 500 ML BOTTLE PO ONE (13:50)
[2021-04-27] MEDS ORDERED: Potassium Chloride 40 MEQ, Lidocaine 1% 2 ML in 0.9 % Sodium Chloride 500 ML IVPB ONE (14:30)
[2021-04-27] MEDS ORDERED: Acetaminophen IV 1,000 MG/100 ML BAG IVPB ONE (15:34)
[2021-04-27] MEDS: Piperacillin/Tazobactam 3.375 GM in 0.9 % Sodium Chloride Mini Bag 100 ML IVPB SCH ×2 (16:27→23:25)
[2021-04-27] MEDS ORDERED: Ondansetron 4 MG/2 ML VIAL IVP PRN (23:11)
[2021-04-27] MEDS: Famotidine 20 MG/2 ML VIAL IVP SCH (23:26)
[2021-04-28 05:49] LABS: Basophils % 0.5 %; Eosinophils # 0.2 K/mcL (0.0-0.6); Eosinophils % 4.2 %; Hematocrit 27.8 % (35.3-44.9); Hemoglobin 8.4 g/dL (11.5-15.4); Immature Granulocytes % 0.4 % (0-4); Lymphocytes # 0.6 K/mcL (0.6-4.6); Lymphocytes % 10.2 %; Mean Corpuscular HGB Conc 30.2 g/dL (31.6-35.5); Mean Corpuscular Volume 86.1 fL (83.0-100.0); Mean Platelet Volume 11.6 fL (9.4-12.4); Monocytes # 0.5 K/mcL (0.0-1.3); Monocytes % 7.9 %; Neutrophils # 4.4 K/mcL (1.6-8.9); Platelet Count 337 K/mcL (140-400); Red Blood Count 3.23 M/mcL (3.82-4.97); Red Cell Distribution Width 15.3 % (11.5-14.5); Segmented Neutrophils % 76.8 %; White Blood Count 5.7 K/mcL (4.3-11.1)
[2021-04-28 06:19] LABS: BUN/Creatinine Ratio 21 (6-26); Blood Urea Nitrogen 14 mg/dL (8-23); Calcium 8.1 mg/dL (8.6-10.3); Carbon Dioxide 30 mEq/L (23-29); Chloride 104 mEq/L (98-107); Glucose 100 mg/dL (70-105); Osmolality,Calculated 291 (280-300); Potassium 3.6 mEq/L (3.5-5.1); Sodium 140 mEq/L (136-145); eGFR For African Americans > 60 (> 60); eGFR For Non-African Americans > 60 (> 60)
[2021-04-28] MEDS: Vancomycin 1,500 MG/265 ML IV.SOLN IVPB SCH (08:11)
[2021-04-28] MEDS: Piperacillin/Tazobactam 3.375 GM in 0.9 % Sodium Chloride Mini Bag 100 ML IVPB SCH ×3 (08:12→23:20)
[2021-04-28] MEDS: Famotidine 20 MG/2 ML VIAL IVP SCH ×2 (08:12→19:38)
[2021-04-28] MEDS ORDERED: ALPRAZolam 1 MG TABLET PO PRN (08:40)
[2021-04-28] MEDS: Metoprolol XL (24 HR) Succ 25 MG TAB.ER.24H PO SCH (09:17)
[2021-04-28] MEDS: Ipratropium/Albuterol Neb 3 ML IH SCH ×3 (10:03→21:35)
[2021-04-28] MEDS: Fluticasone Propionate Nasal 50 MCG/SPRAY BOTTLE NS SCH ×2 (11:00→19:39)
[2021-04-28] MEDS ORDERED: D5% in Water 1,000 ML IVC PRN (15:22)
[2021-04-28] MEDS ORDERED: Dextrose Gel 15 GM/37.5 ML TUBE PO PRN ×2 (15:22)
[2021-04-28] MEDS ORDERED: *HR* Dextrose 50 % in Water (Vial) 50 ML VIAL IVP PRN (15:22)
[2021-04-28] MEDS: Insulin LISPRO 300 UNITS/3 ML VIAL SUBQ SCH (16:55)
[2021-04-28] MEDS ORDERED: traZODone 50 MG TABLET PO SCH (19:00)
[2021-04-28] MEDS ORDERED: Insulin LISPRO 300 UNITS/3 ML VIAL SUBQ SCH (21:00)
[2021-04-28] MEDS: *HR* OxyCODONE/APAP 5/325 TABLET PO PRN (23:25)
[2021-04-29 03:20] LABS: Basophils % 0.3 %; Eosinophils # 0.3 K/mcL (0.0-0.6); Eosinophils % 4.6 %; Hematocrit 26.5 % (35.3-44.9); Immature Granulocytes % 0.3 % (0-4); Lymphocytes # 0.9 K/mcL (0.6-4.6); Lymphocytes % 15.4 %; Mean Corpuscular HGB Conc 30.2 g/dL (31.6-35.5); Mean Corpuscular Hemoglobin 25.9 pg (28.0-33.3); Mean Corpuscular Volume 85.8 fL (83.0-100.0); Mean Platelet Volume 11.9 fL (9.4-12.4); Monocytes # 0.6 K/mcL (0.0-1.3); Monocytes % 9.3 %; Neutrophils # 4.1 K/mcL (1.6-8.9); Platelet Count 325 K/mcL (140-400); Red Blood Count 3.09 M/mcL (3.82-4.97); Red Cell Distribution Width 15.4 % (11.5-14.5); Segmented Neutrophils % 70.1 %; White Blood Count 5.9 K/mcL (4.3-11.1)
[2021-04-29 03:41] LABS: BUN/Creatinine Ratio 15 (6-26); Blood Urea Nitrogen 13 mg/dL (8-23); Carbon Dioxide 30 mEq/L (23-29); Chloride 103 mEq/L (98-107); Glucose 245 mg/dL (70-105); Magnesium 1.8 mg/dL (1.6-2.6); Osmolality,Calculated 298 (280-300); Phosphorous 3.3 mg/dL (2.7-4.5); Potassium 2.8 mEq/L (3.5-5.1); Sodium 140 mEq/L (136-145); eGFR For African Americans > 60 (> 60); eGFR For Non-African Americans > 60 (> 60)
[2021-04-29] MEDS ORDERED: Acetaminophen IV 1,000 MG/100 ML BAG IVPB ONE (03:43)
[2021-04-29] MEDS: Ipratropium/Albuterol Neb 3 ML IH SCH ×2 (04:17→10:04)
[2021-04-29] MEDS ORDERED: lisinopriL 5 MG TABLET PO SCH (07:00)
[2021-04-29] MEDS ORDERED: Aspirin Enteric Coated 81 MG Tablet PO SCH (07:00)
[2021-04-29] MEDS ORDERED: Potassium Chloride 40 MEQ, Lidocaine 1% 2 ML in 0.9 % Sodium Chloride 500 ML IVPB ONE (08:35)
[2021-04-29] MEDS: Metoprolol XL (24 HR) Succ 25 MG TAB.ER.24H PO SCH (08:49)
[2021-04-29] MEDS: Fluticasone Propionate Nasal 50 MCG/SPRAY BOTTLE NS SCH (08:50)
[2021-04-29] MEDS: Famotidine 20 MG/2 ML VIAL IVP SCH (08:50)
[2021-04-29] MEDS: Piperacillin/Tazobactam 3.375 GM in 0.9 % Sodium Chloride Mini Bag 100 ML IVPB SCH (08:51)
[2021-04-29] MEDS: Insulin LISPRO 300 UNITS/3 ML VIAL SUBQ SCH ×2 (08:55→13:10)
[2021-04-29] MEDS: Vancomycin 1,500 MG/265 ML IV.SOLN IVPB SCH (08:59)
[2021-04-29 11:21] VITALS: BP 147/69
[2021-04-29] MEDS: *HR* OxyCODONE/APAP 5/325 TABLET PO PRN (12:44)
== END 2021-04-29 15:15 | disposition home health service (06) ==
LOC: 3BNU 06:58 → EMEROOARM 06:58 → SUATTDRO 10:30 → 3BNU 12:12
PROVIDERS: ADMIT Internal Medicine; ATTEND Internal Medicine

== ENCOUNTER 2021-05-11 20:52 | Inpatient (IN) ==
[2021-05-11] MEDS ORDERED: Naloxone 0.4 MG/ML INJ IVP PRN (23:43)
[2021-05-11] MEDS ORDERED: Ondansetron 4 MG/2 ML VIAL IVP PRN (23:43)
[2021-05-11] MEDS ORDERED: 0.9 % Sodium Chloride 1,000 ML IVC SCH (23:45)
[2021-05-12 01:03] LABS: Basophils # 0.1 K/mcL (0.0-0.2); Basophils % 0.3 %; Eosinophils % 0.3 %; Hematocrit 26.3 % (35.3-44.9); Hemoglobin 8.1 g/dL (11.5-15.4); Immature Granulocytes % 0.6 % (0-4); Lymphocytes # 1.4 K/mcL (0.6-4.6); Lymphocytes % 9.3 %; Mean Corpuscular HGB Conc 30.8 g/dL (31.6-35.5); Mean Corpuscular Hemoglobin 26.4 pg (28.0-33.3); Mean Corpuscular Volume 85.7 fL (83.0-100.0); Mean Platelet Volume 11.3 fL (9.4-12.4); Monocytes # 0.7 K/mcL (0.0-1.3); Monocytes % 4.7 %; Neutrophils # 13.1 K/mcL (1.6-8.9); Platelet Count 259 K/mcL (140-400); Red Blood Count 3.07 M/mcL (3.82-4.97); Red Cell Distribution Width 15.8 % (11.5-14.5); Segmented Neutrophils % 84.8 %; White Blood Count 15.5 K/mcL (4.3-11.1)
[2021-05-12 01:17] LABS: INR 1.3; Prothrombin Time 14.6 Seconds (9.4-12.1)
[2021-05-12 01:22] LABS: BUN/Creatinine Ratio 27 (6-26); Blood Urea Nitrogen 19 mg/dL (8-23); C-Reactive Protein 99 mg/L (Less than 10); Calcium 7.6 mg/dL (8.6-10.3); Carbon Dioxide 30 mEq/L (23-29); Chloride 101 mEq/L (98-107); Glucose 226 mg/dL (70-105); Magnesium 1.4 mg/dL (1.6-2.6); Osmolality,Calculated 307 (280-300); Sodium 144 mEq/L (136-145); eGFR For African Americans > 60 (> 60); eGFR For Non-African Americans > 60 (> 60)
[2021-05-12] MEDS ORDERED: Potassium Chloride 40 MEQ, Lidocaine 1% 2 ML in 0.9 % Sodium Chloride 500 ML IVPB ONE (01:36)
[2021-05-12] MEDS ORDERED: D5% in Water 1,000 ML IVC PRN (01:39)
[2021-05-12] MEDS ORDERED: *HR* Dextrose 50 % in Water (Vial) 50 ML VIAL IVP PRN (01:39)
[2021-05-12] MEDS ORDERED: Furosemide 40 MG/4 ML VIAL IVP ONE (01:39)
[2021-05-12] MEDS ORDERED: Dextrose Gel 15 GM/37.5 ML TUBE PO PRN ×2 (01:39)
[2021-05-12] MEDS: *HR* HYDROcodone/Acet 5/325 mg TABLET PO PRN ×2 (02:39→22:13)
[2021-05-12] MEDS: Piperacillin/Tazobactam 3.375 GM in 0.9 % Sodium Chloride Mini Bag 100 ML IVPB SCH ×5 (02:40→22:12)
[2021-05-12] MEDS ORDERED: Ipratropium/Albuterol Neb 3 ML ONE (03:38)
[2021-05-12] MEDS: Ipratropium/Albuterol Neb 3 ML IH SCH ×4 (03:42→21:42)
[2021-05-12] MEDS: Multivit/Ca/Min/Fe/FA 1 TAB TABLET PO SCH (06:40)
[2021-05-12] MEDS: Aspirin Enteric Coated 81 MG Tablet PO SCH (06:41)
[2021-05-12] MEDS: Cholecalciferol (D-3) 1,000 UNIT (25MCG) TABLET PO SCH (06:41)
[2021-05-12] MEDS: Metoprolol XL (24 HR) Succ 25 MG TAB.ER.24H PO SCH (06:41)
[2021-05-12] MEDS: Insulin LISPRO 300 UNITS/3 ML VIAL SUBQ SCH ×5 (07:27→20:26)
[2021-05-12] MEDS ORDERED: ALPRAZolam 1 MG TABLET PO PRN (09:00)
[2021-05-12] MEDS ORDERED: Pantoprazole 40 MG VIAL IVP SCH (09:00)
[2021-05-12] MEDS: Cyanocobalamin (B-12) 1,000 MCG TABLET PO SCH (09:57)
[2021-05-12] MEDS: Fluticasone Propionate Nasal 50 MCG/SPRAY BOTTLE NS SCH ×2 (09:58→20:00)
[2021-05-12 10:53] LABS: Adenovirus Not Detected (Not Detect); Bordetella Pertussis Not Detected (Not Detect); Chlamydophila pneumoniae Not Detected (Not Detect); Coronavirus 229E Not Detected (Not Detect); Coronavirus HKU1 Not Detected (Not Detect); Coronavirus NL63 Not Detected (Not Detect); Coronavirus OC43 Not Detected (Not Detect); Human Metapneumovirus Not Detected (Not Detect); Human Rhinovirus/Enterovirus Not Detected (Not Detect); Influenza A Subtype 2009 H1 Not Detected (Not Detect); Influenza B Not Detected (Not Detect); Parainfluenza Virus 1 Not Detected (Not Detect); Parainfluenza Virus 2 Not Detected (Not Detect); Parainfluenza Virus 3 Not Detected (Not Detect); Parainfluenza Virus 4 Not Detected (Not Detect); Respiratory Syncytial Virus Not Detected (Not Detect); SARS-CoV-2 Not Detected (Not Detect)
[2021-05-12 10:55] LABS: Mycoplasma pneumoniae Not Detected (Not Detect)
[2021-05-12] MEDS: Acetaminophen 325 MG TABLET PO PRN (16:54)
[2021-05-12] MEDS ORDERED: traZODone 50 MG TABLET PO SCH (19:00)
[2021-05-12] MEDS: traZODone 50 MG TABLET PO SCH (19:59)
[2021-05-13] MEDS: Acetaminophen 325 MG TABLET PO PRN ×2 (03:49→21:08)
[2021-05-13] MEDS: Ipratropium/Albuterol Neb 3 ML IH SCH ×4 (04:03→21:06)
[2021-05-13 04:57] LABS: Basophils % 0.5 %; Eosinophils # 0.4 K/mcL (0.0-0.6); Eosinophils % 6.4 %; Hematocrit 25.9 % (35.3-44.9); Hemoglobin 7.9 g/dL (11.5-15.4); Immature Granulocytes % 0.5 % (0-4); Lymphocytes # 1.2 K/mcL (0.6-4.6); Mean Corpuscular HGB Conc 30.5 g/dL (31.6-35.5); Mean Corpuscular Hemoglobin 26.2 pg (28.0-33.3); Mean Platelet Volume 11.1 fL (9.4-12.4); Monocytes # 0.4 K/mcL (0.0-1.3); Monocytes % 6.2 %; Platelet Count 250 K/mcL (140-400); Red Blood Count 3.01 M/mcL (3.82-4.97); Red Cell Distribution Width 15.9 % (11.5-14.5); Segmented Neutrophils % 67.4 %
[2021-05-13 04:59] LABS: Neutrophils # 4.3 K/mcL (1.6-8.9); White Blood Count 6.3 K/mcL (4.3-11.1)
[2021-05-13 05:11] LABS: % Iron Saturation 12 % (15-50); Alanine Aminotransferase 5 Units/L (7-52); Albumin 2.6 g/dL (3.5-5.7); Albumin/Globulin Ratio 0.9 (1.1-2.2); Alkaline Phosphatase 73 Units/L (34-104); Aspartate Amino Transferase 10 Units/L (13-39); BUN/Creatinine Ratio 30 (6-26); Bilirubin,Direct 0.1 mg/dL (0.0-0.2); Bilirubin,Indirect 0.4 mg/dL (0.0-1.0); Bilirubin,Total 0.5 mg/dL (0.3-1.0); Blood Urea Nitrogen 23 mg/dL (8-23); Calcium 7.9 mg/dL (8.6-10.3); Carbon Dioxide 33 mEq/L (23-29); Chloride 103 mEq/L (98-107); Glucose 139 mg/dL (70-105); Iron 25 mcg/dL (50-170); Osmolality,Calculated 300 (280-300); Potassium 3.1 mEq/L (3.5-5.1); Sodium 142 mEq/L (136-145); Total Protein 5.6 g/dL (6.4-8.9); Transferrin 146 mg/dL (203-362); eGFR For African Americans > 60 (> 60); eGFR For Non-African Americans > 60 (> 60)
[2021-05-13 05:28] LABS: Ferritin 139 ng/mL (10-120)
[2021-05-13] MEDS: Piperacillin/Tazobactam 3.375 GM in 0.9 % Sodium Chloride Mini Bag 100 ML IVPB SCH ×3 (05:33→23:06)
[2021-05-13 05:34] LABS: Folate 18.2 ng/mL (3.0-16.0)
[2021-05-13 06:12] LABS: Estimated Average Glucose 203 mg/dl; Hemoglobin A1C 8.7 %
[2021-05-13] MEDS: Cholecalciferol (D-3) 1,000 UNIT (25MCG) TABLET PO SCH (06:13)
[2021-05-13] MEDS: Metoprolol XL (24 HR) Succ 25 MG TAB.ER.24H PO SCH (06:13)
[2021-05-13] MEDS: Aspirin Enteric Coated 81 MG Tablet PO SCH (06:13)
[2021-05-13] MEDS: Multivit/Ca/Min/Fe/FA 1 TAB TABLET PO SCH (06:14)
[2021-05-13] MEDS: Insulin LISPRO 300 UNITS/3 ML VIAL SUBQ SCH ×4 (08:14→21:03)
[2021-05-13] MEDS: Fluticasone Propionate Nasal 50 MCG/SPRAY BOTTLE NS SCH ×2 (08:16→21:00)
[2021-05-13] MEDS: Cyanocobalamin (B-12) 1,000 MCG TABLET PO SCH (08:16)
[2021-05-13] MEDS: *HR* HYDROcodone/Acet 5/325 mg TABLET PO PRN (17:41)
[2021-05-13] MEDS: traZODone 50 MG TABLET PO SCH (20:51)
[2021-05-14 03:41] LABS: BUN/Creatinine Ratio 26 (6-26); Blood Urea Nitrogen 19 mg/dL (8-23); Calcium 8.3 mg/dL (8.6-10.3); Carbon Dioxide 30 mEq/L (23-29); Chloride 103 mEq/L (98-107); Glucose 186 mg/dL (70-105); Osmolality,Calculated 297 (280-300); Potassium 3.3 mEq/L (3.5-5.1); Sodium 140 mEq/L (136-145); eGFR For African Americans > 60 (> 60); eGFR For Non-African Americans > 60 (> 60)
[2021-05-14 03:46] LABS: Basophils % 0.4 %; Eosinophils # 0.5 K/mcL (0.0-0.6); Eosinophils % 6.8 %; Hematocrit 26.4 % (35.3-44.9); Hemoglobin 8.2 g/dL (11.5-15.4); Immature Granulocytes % 0.6 % (0-4); Lymphocytes % 13.1 %; Mean Corpuscular HGB Conc 31.1 g/dL (31.6-35.5); Mean Corpuscular Hemoglobin 26.7 pg (28.0-33.3); Monocytes # 0.4 K/mcL (0.0-1.3); Monocytes % 5.5 %; Neutrophils # 5.8 K/mcL (1.6-8.9); Platelet Count 295 K/mcL (140-400); Red Blood Count 3.07 M/mcL (3.82-4.97); Red Cell Distribution Width 15.8 % (11.5-14.5); Segmented Neutrophils % 73.6 %; White Blood Count 7.9 K/mcL (4.3-11.1)
[2021-05-14] MEDS: Ipratropium/Albuterol Neb 3 ML IH SCH ×4 (03:59→21:28)
[2021-05-14] MEDS: Piperacillin/Tazobactam 3.375 GM in 0.9 % Sodium Chloride Mini Bag 100 ML IVPB SCH ×2 (05:55→14:14)
[2021-05-14] MEDS: Metoprolol XL (24 HR) Succ 25 MG TAB.ER.24H PO SCH (07:42)
[2021-05-14] MEDS: Fluticasone Propionate Nasal 50 MCG/SPRAY BOTTLE NS SCH ×2 (07:42→20:12)
[2021-05-14] MEDS: Aspirin Enteric Coated 81 MG Tablet PO SCH (07:42)
[2021-05-14] MEDS: Cholecalciferol (D-3) 1,000 UNIT (25MCG) TABLET PO SCH (07:42)
[2021-05-14] MEDS: Cyanocobalamin (B-12) 1,000 MCG TABLET PO SCH (07:42)
[2021-05-14] MEDS: Multivit/Ca/Min/Fe/FA 1 TAB TABLET PO SCH (07:42)
[2021-05-14] MEDS: Insulin LISPRO 300 UNITS/3 ML VIAL SUBQ SCH ×4 (07:43→20:12)
[2021-05-14] MEDS: *HR* HYDROcodone/Acet 5/325 mg TABLET PO PRN (08:49)
[2021-05-14] MEDS ORDERED: Potassium Chloride 40 MEQ, Lidocaine 1% 2 ML in 0.9 % Sodium Chloride 500 ML IVPB ONE (09:44)
[2021-05-14 17:00] LABS: BUN/Creatinine Ratio 23 (6-26); Blood Urea Nitrogen 15 mg/dL (8-23); Calcium 8.2 mg/dL (8.6-10.3); Carbon Dioxide 32 mEq/L (23-29); Chloride 105 mEq/L (98-107); Glucose 149 mg/dL (70-105); Osmolality,Calculated 294 (280-300); Potassium 3.8 mEq/L (3.5-5.1); Sodium 140 mEq/L (136-145); eGFR For African Americans > 60 (> 60); eGFR For Non-African Americans > 60 (> 60)
[2021-05-14] MEDS: traZODone 50 MG TABLET PO SCH (20:09)
[2021-05-15 04:19] LABS: Basophils % 0.6 %; Eosinophils # 0.4 K/mcL (0.0-0.6); Eosinophils % 6.8 %; Hematocrit 25.4 % (35.3-44.9); Hemoglobin 7.7 g/dL (11.5-15.4); Immature Granulocytes % 0.8 % (0-4); Lymphocytes # 1.4 K/mcL (0.6-4.6); Lymphocytes % 26.9 %; Mean Corpuscular HGB Conc 30.3 g/dL (31.6-35.5); Mean Corpuscular Hemoglobin 26.2 pg (28.0-33.3); Mean Corpuscular Volume 86.4 fL (83.0-100.0); Mean Platelet Volume 10.9 fL (9.4-12.4); Monocytes # 0.5 K/mcL (0.0-1.3); Monocytes % 8.9 %; Platelet Count 290 K/mcL (140-400); Red Blood Count 2.94 M/mcL (3.82-4.97); Red Cell Distribution Width 15.8 % (11.5-14.5); White Blood Count 5.3 K/mcL (4.3-11.1)
[2021-05-15] MEDS: Ipratropium/Albuterol Neb 3 ML IH SCH ×2 (04:31→10:16)
[2021-05-15 04:40] LABS: BUN/Creatinine Ratio 22 (6-26); Blood Urea Nitrogen 16 mg/dL (8-23); Calcium 8.1 mg/dL (8.6-10.3); Carbon Dioxide 31 mEq/L (23-29); Chloride 104 mEq/L (98-107); Glucose 144 mg/dL (70-105); Osmolality,Calculated 304 (280-300); Potassium 3.7 mEq/L (3.5-5.1); Sodium 145 mEq/L (136-145); eGFR For African Americans > 60 (> 60); eGFR For Non-African Americans > 60 (> 60)
[2021-05-15 07:00] VITALS: BP 172/74
[2021-05-15] MEDS ORDERED: Iron Sucrose Complex 200 MG in 0.9 % Sodium Chloride 100 ML IVPB ONE (07:21)
[2021-05-15] MEDS: Aspirin Enteric Coated 81 MG Tablet PO SCH (08:47)
[2021-05-15] MEDS: Metoprolol XL (24 HR) Succ 25 MG TAB.ER.24H PO SCH (08:47)
[2021-05-15] MEDS: Multivit/Ca/Min/Fe/FA 1 TAB TABLET PO SCH (08:47)
[2021-05-15] MEDS: Fluticasone Propionate Nasal 50 MCG/SPRAY BOTTLE NS SCH (08:47)
[2021-05-15] MEDS: Cyanocobalamin (B-12) 1,000 MCG TABLET PO SCH (08:47)
[2021-05-15] MEDS: Cholecalciferol (D-3) 1,000 UNIT (25MCG) TABLET PO SCH (08:47)
[2021-05-15] MEDS: Insulin LISPRO 300 UNITS/3 ML VIAL SUBQ SCH (08:49)
[2021-05-15] MEDS ORDERED: lisinopriL 10 MG TABLET PO SCH (09:00)
== END 2021-05-15 11:17 | disposition home health service (06) | DRG 871 ==
LOC: 3ANU → SUATTDRO 22:28
PROVIDERS: ADMIT Internal Medicine; ATTEND Pharmacist

== ENCOUNTER 2022-06-15 20:25 | Observation (INO) ==
[2022-06-15] MEDS ORDERED: *HR* FentaNYL (PF) 100 MCG/2 ML VIAL IVP ONE (20:33)
[2022-06-15 20:54] LABS: Basophils # 0.1 K/mcL (0.0-0.2); Basophils % 0.3 %; Eosinophils # 0.1 K/mcL (0.0-0.6); Eosinophils % 0.6 %; Hematocrit 35.2 % (35.3-44.9); Hemoglobin 11.5 g/dL (11.5-15.4); Immature Granulocytes % 0.6 % (0-4); Lymphocytes # 1.5 K/mcL (0.6-4.6); Lymphocytes % 8.2 %; Mean Corpuscular HGB Conc 32.7 g/dL (31.6-35.5); Mean Corpuscular Hemoglobin 28.5 pg (28.0-33.3); Mean Corpuscular Volume 87.3 fL (83.0-100.0); Mean Platelet Volume 11.1 fL (9.4-12.4); Monocytes # 0.7 K/mcL (0.0-1.3); Monocytes % 3.9 %; Neutrophils # 15.3 K/mcL (1.6-8.9); Platelet Count 240 K/mcL (140-400); Red Blood Count 4.03 M/mcL (3.82-4.97); Segmented Neutrophils % 86.4 %; White Blood Count 17.7 K/mcL (4.3-11.1)
[2022-06-15 21:03] LABS: Prothrombin Time 11.4 Seconds (9.4-12.1)
[2022-06-15 21:06] LABS: Activated Partial Thrombo Time 33.8 Seconds (26.0-36.0)
[2022-06-15] MEDS ORDERED: Ondansetron 4 MG/2 ML VIAL IVP ONE (21:08)
[2022-06-15 21:19] LABS: Alanine Aminotransferase 10 Units/L (7-52); Albumin 3.6 g/dL (3.5-5.7); Albumin/Globulin Ratio 1.1 (1.1-2.2); Alkaline Phosphatase 63 Units/L (34-104); Aspartate Amino Transferase 12 Units/L (13-39); BUN/Creatinine Ratio 32 (6-26); Bilirubin,Indirect 0.3 mg/dL (0.0-1.0); Bilirubin,Total 0.3 mg/dL (0.3-1.0); Blood Urea Nitrogen 20 mg/dL (8-23); Calcium 9.2 mg/dL (8.6-10.3); Carbon Dioxide 31 mEq/L (23-29); Chloride 100 mEq/L (98-107); Globulin 3.3 g/dL (2.4-3.5); Glucose 182 mg/dL (70-105); Lipase 7 Units/L (11-82); Osmolality,Calculated 297 (280-300); Potassium 4.2 mEq/L (3.5-5.1); Sodium 140 mEq/L (136-145); Total Protein 6.9 g/dL (6.4-8.9); Troponin I < 0.03 ng/mL (< 0.04); eGFR For African Americans > 60 (> 60); eGFR For Non-African Americans > 60 (> 60)
[2022-06-15] MEDS ORDERED: Iopamidol - 370 500 ML MLS IVP ONE (21:40)
[2022-06-16] MEDS ORDERED: Aspirin 81 MG TAB.CHEW PO ONE ×2 (00:24→02:23)
[2022-06-16] MEDS ORDERED: Naloxone 0.4 MG/ML INJ IVP PRN (00:52)
[2022-06-16] MEDS ORDERED: Ondansetron 4 MG/2 ML VIAL IVP PRN (00:52)
[2022-06-16] MEDS ORDERED: *HR* Heparin 5,000 UNIT/ML VIAL IVP ONE (01:00)
[2022-06-16] MEDS ORDERED: Heparin 25,000UNIT/250ML 1/2NS 25,000 UNIT/250 ML IV.SOLN IVC SCH (01:00)
[2022-06-16] MEDS ORDERED: *HR* Heparin 5,000 UNIT/ML VIAL IVP PRN ×2 (01:00)
[2022-06-16 03:14] LABS: Basophils # 0.1 K/mcL (0.0-0.2); Basophils % 0.3 %; Eosinophils # 0.1 K/mcL (0.0-0.6); Eosinophils % 0.7 %; Hemoglobin 10.5 g/dL (11.5-15.4); Immature Granulocytes % 0.6 % (0-4); Lymphocytes # 1.6 K/mcL (0.6-4.6); Lymphocytes % 9.7 %; Mean Corpuscular HGB Conc 31.8 g/dL (31.6-35.5); Mean Corpuscular Hemoglobin 28.2 pg (28.0-33.3); Mean Corpuscular Volume 88.7 fL (83.0-100.0); Mean Platelet Volume 11.6 fL (9.4-12.4); Monocytes # 0.6 K/mcL (0.0-1.3); Monocytes % 3.6 %; Neutrophils # 14.4 K/mcL (1.6-8.9); Platelet Count 225 K/mcL (140-400); Red Blood Count 3.72 M/mcL (3.82-4.97); Red Cell Distribution Width 14.1 % (11.5-14.5); Segmented Neutrophils % 85.1 %; White Blood Count 16.9 K/mcL (4.3-11.1)
[2022-06-16] MEDS: Acetaminophen 325 MG TABLET PO PRN ×3 (03:16→19:27)
[2022-06-16 03:22] LABS: INR 1.1; Prothrombin Time 12.5 Seconds (9.4-12.1)
[2022-06-16 03:39] LABS: BUN/Creatinine Ratio 30 (6-26); Blood Urea Nitrogen 21 mg/dL (8-23); Calcium 8.8 mg/dL (8.6-10.3); Carbon Dioxide 29 mEq/L (23-29); Chloride 102 mEq/L (98-107); Chol/HDL Ratio 4.4 (0-4.9); Cholesterol 141 mg/dL (< 200); Glucose 144 mg/dL (70-105); HDL Cholesterol 32 mg/dL (40-59); LDL Cholesterol,Calculated 68 mg/dL (< 100); Magnesium 1.8 mg/dL (1.6-2.6); Osmolality,Calculated 294 (280-300); Phosphorous 5.4 mg/dL (2.7-4.5); Potassium 4.3 mEq/L (3.5-5.1); Sodium 139 mEq/L (136-145); Triglycerides 206 mg/dL (< 150); eGFR For African Americans > 60 (> 60); eGFR For Non-African Americans > 60 (> 60)
[2022-06-16] MEDS ORDERED: Nitroglycerin 0.4 MG TAB.SUBL SL PRN (10:20)
[2022-06-16] MEDS: amLODIPine 5 MG TABLET PO SCH (10:56)
[2022-06-16] MEDS: lisinopriL 20 MG TABLET PO SCH (10:56)
[2022-06-16] MEDS: Metoprolol XL (24 HR) Succ 25 MG TAB.ER.24H PO SCH ×2 (10:56→19:27)
[2022-06-16] MEDS: *HR* Ticagrelor 90 MG TABLET PO SCH ×2 (10:56→19:27)
[2022-06-16 15:59] LABS: Bilirubin,Urine Negative (Negative); Blood,Urine Negative (Negative); Clarity,Urine Clear (Clear); Color,Urine Light-Yellow (Yellow); Glucose,Urine (UA) Normal (Normal); Ketones,Urine Negative (Negative); Leukocyte Esterase,Urine Negative (Negative); Mucus,Urine Few per lpf (None-Few); Nitrite,Urine Negative (Negative); Protein,Urine 100 mg/dL (Neg-Trace); RBC,Urine 0-3 per hpf (0-3); Specific Gravity,Urine 1.022 (1.010-1.025); Squamous Epithelial Cell,Urine Few per hpf (None-Few); Urobilinogen,Urine Normal (Normal); WBC,Urine 0-3 per hpf (0-3)
[2022-06-17 02:41] LABS: Basophils % 0.3 %; Eosinophils # 0.2 K/mcL (0.0-0.6); Eosinophils % 2.2 %; Hematocrit 34.3 % (35.3-44.9); Hemoglobin 10.6 g/dL (11.5-15.4); Immature Granulocytes % 0.3 % (0-4); Lymphocytes # 2.2 K/mcL (0.6-4.6); Lymphocytes % 21.5 %; Mean Corpuscular HGB Conc 30.9 g/dL (31.6-35.5); Mean Corpuscular Hemoglobin 27.7 pg (28.0-33.3); Mean Corpuscular Volume 89.8 fL (83.0-100.0); Mean Platelet Volume 11.5 fL (9.4-12.4); Monocytes # 0.6 K/mcL (0.0-1.3); Monocytes % 5.8 %; Neutrophils # 7.1 K/mcL (1.6-8.9); Platelet Count 233 K/mcL (140-400); Red Blood Count 3.82 M/mcL (3.82-4.97); Red Cell Distribution Width 14.2 % (11.5-14.5); Segmented Neutrophils % 69.9 %; White Blood Count 10.2 K/mcL (4.3-11.1)
[2022-06-17 02:54] LABS: Blood Urea Nitrogen 20 mg/dL (8-23); Calcium 8.8 mg/dL (8.6-10.3); Carbon Dioxide 30 mEq/L (23-29); Chloride 104 mEq/L (98-107); Glucose 113 mg/dL (70-105); Magnesium 2.1 mg/dL (1.6-2.6); Osmolality,Calculated 293 (280-300); Phosphorous 4.5 mg/dL (2.7-4.5); Potassium 4.1 mEq/L (3.5-5.1); Sodium 140 mEq/L (136-145)
[2022-06-17 04:36] LABS: BUN/Creatinine Ratio 26 (6-26); eGFR For African Americans > 60 (> 60); eGFR For Non-African Americans > 60 (> 60)
[2022-06-17] MEDS ORDERED: Aspirin Enteric Coated 81 MG Tablet PO SCH (07:00)
[2022-06-17 07:27] VITALS: BP 134/71; PULSE 71; TEMP 97.7; O2SAT 92
[2022-06-17] MEDS: Metoprolol XL (24 HR) Succ 25 MG TAB.ER.24H PO SCH (08:02)
[2022-06-17] MEDS: lisinopriL 20 MG TABLET PO SCH (08:02)
[2022-06-17] MEDS: amLODIPine 5 MG TABLET PO SCH (08:02)
[2022-06-17] MEDS: *HR* Ticagrelor 90 MG TABLET PO SCH (08:02)
== END 2022-06-17 10:32 | disposition home or self-care (01) ==
LOC: 3BNU 20:25 → EMEROOARM 20:25 → SUATTDRO 06-16 00:30 → 3BNU 06-16 01:30
PROVIDERS: ADMIT Internal Medicine; ATTEND Internal Medicine